=== PATIENT | male | born 1930 | race Caucasian/White ===

== ENCOUNTER 2020-11-01 18:45 | Inpatient (IN) | payer MEDICARE, MEDICAID, SELFPAY ==
[~2020-11-01] VITALS: Ht 175.3 cm; Wt 53.8 kg
[2020-11-01 18:45] VITALS: BP_SYST 128
[~2020-11-01 18:45] MED LIST: DEXT15LI PO; FLUT1AER7 IH; FLUT1DIS3 IH; LEVO75TA7 PO; OMEP20CA15 PO; PRED5TAB PO; TRAM50TA2 PO; [UNRECOGNIZED DRUG - CODE] PO
--- NOTE | 2020-11-01 18:48 | NUR ---
PT BIBA FROM [facility] AFTER ROLLING OUT OF BED AND LANDING ON RIGHT HIP. PT PRESENTS WITH RIGHT HIP PAIN. PT IS AAOX4, V/S STABLE UPON ARRIVAL. PER EMS UPON ARRIVAL TO THE SCENE THERE WERE 4 EMPTY AIRPLANE SIZE BOTTLES OF LIQUOR BY THE BED.
--- NOTE | 2020-11-01 18:48 | NUR ---
Patient to ER bed 4 to gown for evaluation. Side rails up. Report given to ZIGGY Frazier.
--- NOTE | 2020-11-01 18:49 | NUR ---
ER DR. PARTIDA AT THE BEDSIDE EXAMINING PT
--- NOTE | 2020-11-01 19:12 | NUR ---
REPORT GIVEN TO ZIGGY SOFIA FOR CONTINUING CARE
[2020-11-01 19:32] LABS: BASOPHILS # (AUTO) 0.1 K/uL (0.0-0.2); BASOPHILS % (AUTO) 0.8 % (0.0-2.0); EOSINOPHILS # (AUTO) 0.1 K/uL (0.0-0.4); EOSINOPHILS % (AUTO) 0.7 % (0.0-4.0); HEMATOCRIT 38.9 % (36-54); HEMOGLOBIN 13.3 g/dL (14.0-18.0); LYMPHOCYTES # (AUTO) 2.6 K/uL (1.0-5.5); LYMPHOCYTES % (AUTO) 24.2 % (20.5-51.5); MEAN CORPUSCULAR HEMOGLOBIN 31 pg (27-31); MEAN CORPUSCULAR HGB CONC 34 % (32-36); MEAN CORPUSCULAR VOLUME 91 fL (79.0-98.0); MONOCYTES # (AUTO) 0.8 K/uL (0.0-1.0); NEUTROPHILS # (AUTO) 7.3 K/uL (1.8-7.7); NEUTROPHILS % (AUTO) 67.3 % (40.0-70.0); PLATELET COUNT (AUTO) 170 K/uL (130-430); RED BLOOD CELL COUNT(AUTO) 4.27 MIL/uL (4.2-6.2); RED CELL DISTRIBUTION WIDTH 14.2 % (9.0-15.0); WHITE BLOOD COUNT (AUTO) 10.9 K/uL (4.8-10.8)
[2020-11-01 19:51] LABS: ANION GAP 13 (5-15); CALCIUM 8.6 mg/dL (8.4-11.0); CHLORIDE 104 mmol/L (98-107); CREATININE 1.12 mg/dL (0.55-1.30); GLUCOSE 81 mg/dL (70-99); POTASSIUM 4.1 mmol/L (3.5-5.1); SODIUM SERUM 137 mmol/L (136-145); UREA NITROGEN, BLOOD 17 mg/dL (8-21)
[2020-11-01 19:57] LABS: ALANINE AMINOTRANSFERASE 62 U/L (12-78); ALBUMIN 2.9 g/dL (3.4-4.8); ALCOHOL, BLOOD 165 mg/dL (<10); ASPARTATE AMINOTRANSFERASE 61 U/L (10-37); TOTAL BILIRUBIN 0.5 mg/dL (0.0-1.0)
--- NOTE | 2020-11-01 20:14 | NUR ---
VSS no s/s of acute distress Resting on gurney rails up
--- NOTE | 2020-11-01 20:39 | NUR ---
COVID-Rapid and MRSA swab performed at bedside. Samples sent over to lab.
[2020-11-01] MEDS ORDERED: MED4 PO (20:50)
[2020-11-01] MEDS ORDERED: GUAI-689 PO (20:53)
[2020-11-01] MEDS ORDERED: IBUP-1968 PO (20:55)
[2020-11-01] MEDS ORDERED: ALBU8.5H8 INH (20:55)
[2020-11-01] MEDS ORDERED: IPRA3AMP9 INH (20:56)
--- NOTE | 2020-11-01 21:32 | NUR ---
Patient will be admitted to care of Dr. Fagan. Admitted to MS unit. Will go to room 120A. Belongings list completed. Complete and up to date summary report printed. SBAR report to be given at bedside with opportunity for questions.
--- NOTE | 2020-11-01 21:49 | NUR ---
Patient will be admitted to care of Dr. Levi. Admitted to Med Surg unit. Will go to room 120. Belongings list completed. Complete and up to date summary report printed. SBAR report to be given at bedside with opportunity for questions.
--- NOTE | 2020-11-01 21:49 | NUR ---
ADMIT NOTE Received pt from ER to the floor with a diagnosis of Right Hip Fracture. Admission process initiated. patient oriented to pain management, safety and call light-teach back done.
[2020-11-01] MEDS ORDERED: ALBUTEROL SULFATE 0.083% 2.5 MG/3 ML VIAL.NEB INH PRN (22:00)
[2020-11-01] MEDS ORDERED: ACETAMINOPHEN 325 MG TABLET PO PRN (22:00)
[2020-11-01] MEDS ORDERED: HYDROcodone/ACETAMIN 5-325 MG TAB (NORCO/ VICODIN) PO PRN (22:00)
[2020-11-01] MEDS ORDERED: NALOXONE HCL 0.4 MG/ML AMP (NARCAN) IVP PRN (22:00)
[2020-11-01 22:02] VITALS: BP_SYST 129
[2020-11-01] MEDS: MORPHINE 4 MG INJ. 4 MG/ML VIAL IVP PRN (22:11)
--- NOTE | 2020-11-01 22:11 | NUR ---
MORPHINE 2MG GIVEN IV FOR C/O 10/10 RIGHT HIP PAIN. CALL LIGHT IS WITH PT AND BED ALARM IS ON. PT WAS INSTRUCTED NOT TO GET OUT OF BED WITHOUT CALLING FOR ASSISTANCE AND PT VERBALIZED UNDERSTANDING.
[2020-11-01 22:44] VITALS: BP_SYST 129
[2020-11-02] VITALS: BP_SYST 146
--- NOTE | 2020-11-02 | NUR ---
Change in condition At 2315, patient vomited about 50 ml of dark brown colored emesis. Patient noted to be altered and agitated at this time. RN about to administer Ativan, but noted patient's oxygen low. Ativan was not administered. Oxygen saturation noted 86% on 4 L NC. RT and Charge nurse at bedside. Patient placed on simple mask but O2 sat remains in the 80s. Dr. Stoner called and informed of patient condition at 2345. Orders received to insert banegas and transfer to ICU. stated she will enter additional orders when patient is transferred to ICU. Banegas catheter inserted at received 600 ml of errol colored urine. UA sent to lab. Addendum: 11/03/20 at 0143 by Deann Gorman RN DISREGARD NOTE, ENTERED ON WRONG DATE.
[2020-11-02 01:00] VITALS: BP_SYST 128
[2020-11-02] MEDS: MORPHINE 4 MG INJ. 4 MG/ML VIAL IVP PRN ×4 (02:14→20:46)
--- NOTE | 2020-11-02 02:14 | NUR ---
PT C/O 10/10 RIGHT HIP PAIN. MORPHINE 2MG GIVEN IV. CALL LIGHT IS WITH PT AND BED ALARM IS ON. PT WAS INSTRUCTED NOT TO GET OUT OF BED WITHOUT CALLING FOR ASSISTANCE AND PT VERBALIZED UNDERSTANDING.
--- NOTE | 2020-11-02 05:07 | NUR ---
PT C/O 11/06 RIGHT HIP PAIN. NORCO 5/325MG 1 TABLET WAS GIVEN PO. CALL LIGHT IS WITH PT AND BED ALARM IS ON. PT WAS INSTRUCTED NOT TO GET OUT OF BED WITHOUT CALLING FOR ASSISTANCE AND PT VERBALIZED UNDERSTANDING.
--- NOTE | 2020-11-02 05:30 | NUR ---
PT IS YET TO PASS URINE SINCE ADMISSION. PT REFUSED BLADDER SCAN. PT ALSO STATED HE DOES NOT WANT A GARCIA CATHETER.
[2020-11-02 06:48] LABS: BASOPHILS # (AUTO) 0.1 K/uL (0.0-0.2); BASOPHILS % (AUTO) 0.8 % (0.0-2.0); EOSINOPHILS # (AUTO) 0.2 K/uL (0.0-0.4); EOSINOPHILS % (AUTO) 1.3 % (0.0-4.0); HEMATOCRIT 41.2 % (36-54); HEMOGLOBIN 13.6 g/dL (14.0-18.0); LYMPHOCYTES # (AUTO) 2.7 K/uL (1.0-5.5); LYMPHOCYTES % (AUTO) 19.9 % (20.5-51.5); MEAN CORPUSCULAR HEMOGLOBIN 30 pg (27-31); MEAN CORPUSCULAR HGB CONC 33 % (32-36); MEAN CORPUSCULAR VOLUME 92 fL (79.0-98.0); MONOCYTES # (AUTO) 1.4 K/uL (0.0-1.0); MONOCYTES % (AUTO) 10.2 % (1.7-9.3); NEUTROPHILS % (AUTO) 67.8 % (40.0-70.0); PLATELET COUNT (AUTO) 193 K/uL (130-430); RED BLOOD CELL COUNT(AUTO) 4.47 MIL/uL (4.2-6.2); RED CELL DISTRIBUTION WIDTH 14.1 % (9.0-15.0); WHITE BLOOD COUNT (AUTO) 13.3 K/uL (4.8-10.8)
[2020-11-02 06:52] LABS: ALANINE AMINOTRANSFERASE 63 U/L (12-78); ANION GAP 13 (5-15); ASPARTATE AMINOTRANSFERASE 70 U/L (10-37); CALCIUM 8.7 mg/dL (8.4-11.0); CHLORIDE 104 mmol/L (98-107); CREATININE 1.07 mg/dL (0.55-1.30); GLUCOSE 54 mg/dL (70-99); POTASSIUM 4.1 mmol/L (3.5-5.1); SODIUM SERUM 138 mmol/L (136-145); UREA NITROGEN, BLOOD 18 mg/dL (8-21)
[2020-11-02 07:30] LABS: PROTHROMBIN TIME 10.2 SECS (9.5-12.5)
[2020-11-02 08:20] LABS: TOTAL BILIRUBIN 0.9 mg/dL (0.0-1.0)
[2020-11-02 08:24] VITALS: BP_SYST 122
[2020-11-02] MEDS ORDERED: BANANA BAG 1 EA, FOLIC ACID 1 MG, THIAMINE HCL 100 MG, MAGNESIUM SULFATE 1 GM, MVI 10 M... IV SCH ×5 (08:30)
[2020-11-02] MEDS ORDERED: IPRATROPIUM BROM 0.5 MG/2.5 ML VIAL.NEB (ATROVENT) INH ONE (08:30)
[2020-11-02] MEDS ORDERED: ALBUTEROL SULFATE 0.083% 2.5 MG/3 ML VIAL.NEB INH ONE (08:30)
[2020-11-02] MEDS ORDERED: PANTOPRAZOLE SODIUM 40 MG TAB PO ONE (08:30)
[2020-11-02] MEDS ORDERED: LEVOTHYROXINE SODIUM 0.075 MG TABLET PO ONE (08:30)
--- NOTE | 2020-11-02 08:35 | NUR ---
CONSULTATION PAGED/CALLED Reason for Consultation: [] R HIP FRACTURE Person Who was Notified: [] DR RENETTA PARMAR Consulting Physician: [] DR RENETTA PARMAR History Card Clerk Specialty: [] ORTHO Ordering Physician: [] DR ARCHULETA Addendum: 11/02/20 at 0837 by Natasha Zendejas MT/ AMEND: CONSULT WAS CALLED AT 0700 TODAY
[2020-11-02] MEDS ORDERED: BUDESONIDE 0.5 MG/2 ML AMPUL.NEB INH ONE (08:45)
[2020-11-02] MEDS ORDERED: FLUTICASONE 250 mCg/SALMETEROL 50 mCg DISKUS W.DEV IH SCH (09:00)
--- NOTE | 2020-11-02 10:29 | NUR ---
PAGED PAGED DR SCHMIDT FOR CRITICAL ABG. ASSESSED PATIENT'S O2 AT BED SIDE, PUT ON 2 L OXGYEN, WAITING FOR DOCTOR TO CALL BACK
--- NOTE | 2020-11-02 10:36 | NUR ---
CALLED DR SCHMIDT CALLED ORDERED OXYGEN 2 L
[2020-11-02] MEDS: THIAMINE HCL 100 MG, MAGNESIUM SULFATE 1 GM in NS 100 ML IV SCH (11:11)
[2020-11-02] MEDS: NEPHROVITE, (FOLIC ACID/VITAMIN B COMP W-C 1 TAB) PO SCH (11:12)
[2020-11-02] MEDS: FOLIC ACID 1 MG, MVI 10 ML in NACL 0.9% 1,000 ML IV SCH (11:12)
[2020-11-02] MEDS: ALBUTEROL SULFATE 0.083% 2.5 MG/3 ML VIAL.NEB INH SCH ×4 (11:50→23:00)
[2020-11-02] MEDS: IPRATROPIUM BROM 0.5 MG/2.5 ML VIAL.NEB (ATROVENT) INH SCH ×4 (11:50→23:00)
[2020-11-02 12:13] VITALS: BP_SYST 92
--- NOTE | 2020-11-02 12:59 | NUR ---
CONSULTATION PAGED/CALLED Reason for Consultation: [] PREOP CLEARANCE Person Who was Notified: [] PAGED DR ABDALLA DIRECTLY Consulting Physician: [] DR ABDALLA Forestry Conservation Worker Specialty: [] PULMO Ordering Physician: [] DR SCHMIDT
--- NOTE | 2020-11-02 13:00 | NUR ---
patient left the room for CT
[2020-11-02] MEDS: LORazepam 2 MG/ML VIAL IVP PRN ×2 (13:21→23:29)
[2020-11-02 16:28] VITALS: BP_SYST 105
--- NOTE | 2020-11-02 19:00 | NUR ---
closing note patient is resting, RT at bedside. iv infiltrated. endorsed to night nurse patient need new iv access for pain mediation. all needs been met, call light in reach, safety maintained.
[2020-11-02] MEDS: BUDESONIDE 0.5 MG/2 ML AMPUL.NEB INH SCH (19:25)
--- NOTE | 2020-11-02 19:30 | NUR ---
Opening notes Received report. Patient is resting in bed, A&Ox4. No signs of distress noted. Breathing even and unlabored on 3 L NC. Patient complains of pain to right hip, IV is infiltrated at this time. Offered patient PO pain medication at this time, patient declines and can wait for new IV to be inserted. No other needs a this time. SCDs in place. Call light with the patient. Safety precautions in place.
[2020-11-02 20:30] VITALS: BP_SYST 106
--- NOTE | 2020-11-02 20:45 | NUR ---
IV insertion/Pain Meds New IV inserted into right hand 22 gauge. Flushes well with good blood return. PRN pain medication given. Educated the action and side effects of Morphine. Patient verbalized understanding and tolerated well. No other needs at this time. Call light with the patient. Safety precautions in place.
[2020-11-03] VITALS (24 sets, daily range): BP systolic 69–146
--- NOTE | 2020-11-03 | NUR ---
Change in condition At 2315, patient vomited about 50 ml of dark brown colored emesis. Patient noted to be altered and agitated at this time. RN about to administer Ativan, but noted patient's oxygen low. Ativan was not administered. Oxygen saturation noted 86% on 4 L NC. RT and Charge nurse at bedside. Patient placed on simple mask but O2 sat remains in the 80s. Dr. Stoner called and informed of patient condition at 2345. Orders received to insert banegas and transfer to ICU. stated she will enter additional orders when patient is transferred to ICU. Banegas catheter inserted at received 600 ml of errol colored urine. UA sent to lab.
[2020-11-03] MEDS: ALBUTEROL SULFATE 0.083% 2.5 MG/3 ML VIAL.NEB INH PRN (00:05)
[2020-11-03] MEDS: IPRATROPIUM BROM 0.5 MG/2.5 ML VIAL.NEB (ATROVENT) INH PRN (00:06)
[2020-11-03] MEDS ORDERED: methylPREDNISolone SOD SUCC/PF 62.5 MG/ML VIAL IVP ONE ×2 (00:15→08:45)
--- NOTE | 2020-11-03 00:15 | NUR ---
DR STEFANY Holly notified regarding Pt's admission to ICU, and elevation of heart rate 155, temperature 100.8 temporal scan, decrease O2 sat 81. Orders received. 1. Give O2 to increase sat to 90%, then do ABG 2.CBC, BMP now 3.NS @ 75ml/hr 4. Zosyn 3.375 gm Q8HR 5.Haldol 5mg IM X1 agitation 6.Blood cultures X2
--- NOTE | 2020-11-03 00:15 | NUR ---
TRANSFER TO LINUX SYSTEM ADMIN, Charge Nurse, RT at bedside to assist. Patient and patient belongings transferred to ICU.
--- NOTE | 2020-11-03 00:15 | NUR ---
MS TRANSFER Pt received via bed from MS. Pt confused, and agitated, bilateral wrist restraints in use. Oxygen 6L N/C in use, pt receiving HHN Tx. Saline lock 22ga right hand, started by MS staff. SCD in use. Belongings at bedside.
[2020-11-03 00:38] LABS: BILIRUBIN,URINE NEGATIVE (NEGATIVE); BLOOD, URINE NEGATIVE (NEGATIVE); CLARITY/URINE CLEAR (CLEAR); COLOR,URINE YELLOW (YELLOW); GLUCOSE,URINE NEGATIVE (NEGATIVE); KETONES,URINE TRACE (NEGATIVE); LEUKOCYTE ESTERASE ,URINE NEGATIVE (NEGATIVE); NITRITE, URINE NEGATIVE (NEGATIVE); PROTEIN URINE NEGATIVE (NEGATIVE); UROBILINOGEN,URINE 0.2 (0.2-1.0)
--- NOTE | 2020-11-03 00:40 | NUR ---
COMMUNICATION W/ DR. GEREMIAS ARCHULETA PAGED AT THIS TIME TO COMMUNICATE PATIENT IS UNCOOPERATIVE, AGITATED, AND WILL NOT ALLOW STAFF TO PLACE OXYGEN DEVICES FOR HIM. DESPITE EDUCATIONAL EFFORTS, PATIENT KEEPS PULLING OFF MEDICAL LINES. DR. ARCHULETA GAVE ORDERS FOR BILATERAL WRIST RESTRAINTS, CHARGE NURSE AND HEALTHCARE ECONOMICS MANAGER MADE AWARE. MD ALSO GAVE OTHER ORDERS, ALL ORDERS READ BACK, VERIFIED, AND ENTERED.
--- NOTE | 2020-11-03 00:41 | NUR ---
HIGH ALERT NOTE: Called Dr. ARCHULETA back at [phone] identified within the medical roster to verify physician authenticity.
[2020-11-03] MEDS ORDERED: ACETAMINOPHEN 650 MG SUPP.RECT RC ONE (00:54)
[2020-11-03] MEDS ORDERED: PIPERACILLIN/TAZO 3.375/DEX-IS 50 ML IV ONE (01:00)
[2020-11-03] MEDS ORDERED: HALOPERIDOL LACTATE 5 MG/ML VIAL IM ONE ×2 (01:00→03:30)
[2020-11-03] MEDS: ACETAMINOPHEN 650 MG SUPP.RECT RC PRN (01:00)
--- NOTE | 2020-11-03 01:05 | NUR ---
ICU PM SHIFT ASSESSMENT Patient is lethargic and confused. O2 via Venturi mask. ST on monitor. IVF infusing. Carl catheter in place and draining to gravity. Bilateral wrist restraints in place, no skin issues noted. Safety precautions in place, call light within reach. Will continue to monitor.
[2020-11-03] MEDS: MORPHINE 4 MG INJ. 4 MG/ML VIAL IVP PRN ×3 (01:10→19:53)
[2020-11-03] MEDS ORDERED: PIPERACILLIN/TAZOBACTAM 3.375 GM/VIAL (ZOSYN) IV ONE (01:20)
[2020-11-03] MEDS: NACL 0.9% 1,000 ML IV SCH ×2 (01:23→14:41)
[2020-11-03 01:39] LABS: BASOPHILS # (AUTO) 0.1 K/uL (0.0-0.2); BASOPHILS % (AUTO) 0.6 % (0.0-2.0); EOSINOPHILS % (AUTO) 0.4 % (0.0-4.0); HEMATOCRIT 43.5 % (36-54); HEMOGLOBIN 14.3 g/dL (14.0-18.0); LYMPHOCYTES # (AUTO) 1.1 K/uL (1.0-5.5); LYMPHOCYTES % (AUTO) 9.9 % (20.5-51.5); MEAN CORPUSCULAR HEMOGLOBIN 31 pg (27-31); MEAN CORPUSCULAR HGB CONC 33 % (32-36); MONOCYTES # (AUTO) 0.2 K/uL (0.0-1.0); MONOCYTES % (AUTO) 1.8 % (1.7-9.3); NEUTROPHILS # (AUTO) 9.5 K/uL (1.8-7.7); NEUTROPHILS % (AUTO) 87.3 % (40.0-70.0); PLATELET COUNT (AUTO) 215 K/uL (130-430); RED CELL DISTRIBUTION WIDTH 14.6 % (9.0-15.0); WHITE BLOOD COUNT (AUTO) 10.9 K/uL (4.8-10.8)
[2020-11-03 01:41] LABS: MEAN CORPUSCULAR VOLUME 94 fL (79.0-98.0)
[2020-11-03 01:43] LABS: ANION GAP 16 (5-15); CALCIUM 8.4 mg/dL (8.4-11.0); CHLORIDE 107 mmol/L (98-107); GLUCOSE 51 mg/dL (70-99); SODIUM SERUM 142 mmol/L (136-145); UREA NITROGEN, BLOOD 35 mg/dL (8-21)
[2020-11-03 01:44] LABS: CREATININE 1.92 mg/dL (0.55-1.30)
--- NOTE | 2020-11-03 01:53 | NUR ---
rt note at 2310 was called to the bedside regarding patient desaturation 86% on 4L/NC. RN and medical charge entry specialist at the bedside. patient placed on 6L simple mask saturation remained in the low 80's. at 0007 PRN breathing treatment given for shortness of breath, patient tolerated treatment well slight improvement. saturation remained in the low 80's. Dr. Stoner was called and order transfer to the ICU. patient transferred to the ICU on 6L simple mask saturation remains in the low 80's will continue to monitor and will wait for orders from strategic manager.
--- NOTE | 2020-11-03 01:55 | NUR ---
BLOOD SUGAR Blood sugar check done, glucose reading 55. D50 IVP given.
[2020-11-03] MEDS ORDERED: DEXTROSE 50% JECT 50 ML DISP.SYRIN ONE (02:02)
--- NOTE | 2020-11-03 02:20 | NUR ---
BLOOD SUGAR RECHECK After patient has received D50 IVP, blood sugar is now 159. Will continue to monitor.
[2020-11-03] MEDS ORDERED: NOREPINEPHRINE 4 MG/4 ML VIAL IV ONE ×3 (02:52→05:31)
--- NOTE | 2020-11-03 02:59 | NUR ---
IV PLACEMENT: # 20 gauge angiocath placed to right forearm after second attempt. Use of asceptic technique. Opsite placed over site. Blood return noted. Flushed with 10 cc of normal saline. No evidence of infiltration noted. Patient tolerated well.
[2020-11-03] MEDS: IPRATROPIUM BROM 0.5 MG/2.5 ML VIAL.NEB (ATROVENT) INH SCH ×2 (03:00→08:43)
[2020-11-03] MEDS: ALBUTEROL SULFATE 0.083% 2.5 MG/3 ML VIAL.NEB INH SCH ×2 (03:00→08:44)
--- NOTE | 2020-11-03 03:00 | NUR ---
SPOKE TO DR. GEREMIAS MD AWARE OF PATIENTS LOW BLOOD SUGAR AND LOW BP. ORDERS TO START ACCUCHECKS Q4HR WITH NO INSULIN COVERAGE AND START LEVOPHED. WILL CONTINUE TO MONITOR.
--- NOTE | 2020-11-03 03:04 | NUR ---
IV FLUIDS Dr Holly did not want to increase IVF due to pt's history of COPD.
[2020-11-03] MEDS: NOREPINEPHRINE BITARTRATE 4 MG in D5W 246 ML IV PRN ×3 (03:41→08:27)
[2020-11-03] MEDS ORDERED: D5W 1,000 ML IV PRN (03:45)
[2020-11-03] MEDS ORDERED: DEXTROSE 50% JECT 50 ML DISP.SYRIN IVP PRN (03:45)
[2020-11-03] MEDS ORDERED: GLUCOSE (DEXTROSE) ORAL GEL -Adults PO PRN (03:45)
[2020-11-03] MEDS ORDERED: PIPERACILLIN/TAZO 3.375/DEX-IS 50 ML IV SCH (06:00)
[2020-11-03] MEDS: LEVOTHYROXINE SODIUM 0.075 MG TABLET PO SCH (07:00)
--- NOTE | 2020-11-03 07:15 | NUR ---
Nutrition Update Shay Scale 14 noted. Pt admitted for Right hip fracture Diet: NPO BMI: 18.8 kg/m2 RD to follow per nutrition care standards.
--- NOTE | 2020-11-03 07:15 | NUR ---
OPENING NOTE: REPORT RC'VD AT BEDSIDE FROM OUTGOING RN USING SBAR FORMAT. ALL SAFETY PRECAUTIONS IN PLACE. BED LOW AND LOCKED, RT AT BEDSIDE GIVING PATIENT RESP TREATMENT.
--- NOTE | 2020-11-03 07:15 | NUR ---
ENDORSEMENT Pt care endorsed to dayshift RN using nursing SBAR.
[2020-11-03] MEDS: LORazepam 2 MG/ML VIAL IVP PRN ×4 (07:59→21:44)
--- NOTE | 2020-11-03 08:01 | NUR ---
ATIVAN PRN: ATIVAN GIVEN IVP PER ORDER FOR AGITATION.
--- NOTE | 2020-11-03 08:42 | NUR ---
DR. ABDALLA: MD AT BEDSIDE NEW ORDERS BEING PLACED.
[2020-11-03] MEDS: BUDESONIDE 0.5 MG/2 ML AMPUL.NEB INH SCH ×2 (08:43→19:31)
[2020-11-03] MEDS ORDERED: IPRATROPIUM/ALBUTEROL SULFATE 3 ML AMPUL.NEB (DUONEB) INH ONE (08:45)
--- NOTE | 2020-11-03 08:55 | NUR ---
DR. CHICAS: MD AT BEDSIDE ASSESSING PATIENT.
--- NOTE | 2020-11-03 08:59 | NUR ---
PICC LINE: SIGNED PICC LINE CONSENT, MD PLACED NOTATION FOR MEDICAL NECESSITY.
[2020-11-03] MEDS: NEPHROVITE, (FOLIC ACID/VITAMIN B COMP W-C 1 TAB) PO SCH (09:00)
[2020-11-03] MEDS: THIAMINE HCL 100 MG, MAGNESIUM SULFATE 1 GM in NS 100 ML IV SCH (09:01)
[2020-11-03] MEDS: FOLIC ACID 1 MG, MVI 10 ML in NACL 0.9% 1,000 ML IV SCH (09:01)
[2020-11-03] MEDS: PANTOPRAZOLE SODIUM 40 MG TAB PO SCH (09:02)
--- NOTE | 2020-11-03 09:03 | NUR ---
LAB: TECH AT BEDSIDE PERFORMING LAB DRAW.
--- NOTE | 2020-11-03 09:22 | NUR ---
DR. SCHMIDT: MD AT BEDSIDE ASSESSING PATIENT.
[2020-11-03 09:31] LABS: INR 1.1 (0.80-1.20); PROTHROMBIN TIME 11.1 SECS (9.5-12.5)
[2020-11-03] MEDS: NOREPINEPHRINE BITARTRATE 8 MG in D5W 242 ML IV PRN ×2 (10:08→17:34)
--- NOTE | 2020-11-03 11:00 | NUR ---
DIETARY: DIETARY AT BEDSIDE, SPLITTING MACHINE FEEDER STATED SHE WILL PLACE RECOMMENDATIONS INTO RECORD.
--- NOTE | 2020-11-03 11:34 | NUR ---
NG TUBE: 16 LIBYAN NG TUBE INSERTED INTO RIGHT NARE, PENDING CHEST XRAY CONFIRMATION.
--- NOTE | 2020-11-03 11:55 | NUR ---
PIV INFILTRATED: PATIENTS RIGHT FA PIV INFILTRATED. NEW PIV PLACED TO BELIA 24G. CHARGE AT BEDSIDE ASSISTING WITH PROCEDURE. Addendum: 11/03/20 at 1156 by Jodee Silverman RN NEW PIV PLACED TO WAN 24G.
--- NOTE | 2020-11-03 12:00 | NUR ---
Dietitian Recommendations *Recommend: continue NPO as ordered. *Recommend: initiate EN support via NGT *Recommend: Vital AF 1.2 at 45ml/hr (goal rate), Ney BID, FWF 150ml Q6H via NGT. (Initial EN infusion rate of 20ml/hr, slowly increase to goal rate Q8H). Provides: 1456 kcal, 86gm protein and 1476ml free water daily. Meets: 100% of lower end of estimated calorie needs and 78% of upper end of estimated protein needs. Please see Nutritional Assessment for details. HASMUKH, RD
--- NOTE | 2020-11-03 12:07 | NUR ---
ATIVAN PRN: ATIVAN GIVEN IVP PER ORDER FOR AGITATION.
--- NOTE | 2020-11-03 12:08 | NUR ---
RT AT BEDSIDE: RT ATTEMPTING DEEP SUCTION, PATIENT NOTED WITH AUDIBLE COARSE LUNG SOUNDS, COPIOUS UPPER AIRWAY SECRETIONS PRESENT. HOB MAINTAINS ELEVATED FOR PREVENTION OF ASPIRATION.
--- NOTE | 2020-11-03 13:01 | NUR ---
Off unit for Nuclear Med via lisa ACLS protocol accompanied by ZIGGY Castellon and Bunny moses x2
--- NOTE | 2020-11-03 13:05 | NUR ---
20g IV placed to RUE with +blood return. Flushed with 10cc NS, tegaderm placed. No s/sx of infiltration. Pt tolerated well.
--- NOTE | 2020-11-03 13:09 | NUR ---
SCAN: PATIENT TAKEN TO SCAN ON MONITOR WITH RN AT BEDSIDE.
[2020-11-03] MEDS: PIPERACILLIN/TAZO 3.375/DEX-IS 50 ML IV SCH ×2 (14:41→21:44)
[2020-11-03] MEDS: HEPARIN SODIUM,PORCINE 5,000 UNITS/ML VIAL SUBCUT SCH ×2 (14:49→21:47)
--- NOTE | 2020-11-03 14:53 | NUR ---
PAGED: LAB REPORTED GRAM NEG RODS IN BLOOD CX, MD SCHMIDT PAGED. PENDING RETURN CALL.
[2020-11-03] MEDS ORDERED: LEVOFLOXACIN IN DEXTROSE 5 % 100 ML IV ONE (15:15)
--- NOTE | 2020-11-03 15:15 | NUR ---
DR. SCHMIDT: SPOKE WITH MD KIM AWARE OF LAB RESULTS, MD WILL PLACE NEW ORDERS.
[2020-11-03] MEDS: IPRATROPIUM/ALBUTEROL SULFATE 3 ML AMPUL.NEB (DUONEB) INH SCH ×3 (16:09→23:36)
--- NOTE | 2020-11-03 16:34 | NUR ---
ATIVAN PRN: ATIVAN GIVEN IVP PER ORDER FOR AGITATION.
--- NOTE | 2020-11-03 16:42 | NUR ---
PICC NURSE: AT BEDSIDE PLACING PICC LINE PER ORDER.
--- NOTE | 2020-11-03 17:30 | NUR ---
PICC INSERTED: PLACEMENT CONFIRMED BY XRAY
--- NOTE | 2020-11-03 17:58 | NUR ---
1340 NTS PT. SMALL THICK BLOOD TINGED SECRETIONS.SAT 97% ON NRB. Addendum: 11/03/20 at 1759 by Aparna Henley RT Amended: Links added.
--- NOTE | 2020-11-03 18:00 | NUR ---
REDNESS NOTED: REDNESS NOTED TO BILATERAL WRISTS, PATIENT TUGGING AND HITTING ARMS ON SIDE RAILS. PHOTOS TAKEN, CHARGE AWARE AND MD PAGED.
[2020-11-03] MEDS: methylPREDNISolone SOD SUCC/PF 62.5 MG/ML VIAL IVP SCH ×2 (18:09→23:24)
--- NOTE | 2020-11-03 19:20 | NUR ---
CLOSING NOTE: REPORT GIVEN TO NOC NURSE USING SBAR FORMAT, BED LOW LOCKED FOR SAFETY. ALL SAFETY PRECAUTIONS IN PLACE.
--- NOTE | 2020-11-03 19:25 | NUR ---
ICU PM SHIFT ASSESSMENT Patient is lethargic and confused. O2 via NRB, RR even and unlabored. ST on monitor. IVF infusing to BELIA PICC, no signs of infiltration noted. Carl catheter in place and draining to gravity. Bilateral wrist restraints in place. Safety precautions in place, call light within reach. Will continue to monitor.
[2020-11-04] VITALS (25 sets, daily range): BP systolic 88–150
[2020-11-04] MEDS: NACL 0.9% 1,000 ML IV SCH ×2 (02:57→09:59)
[2020-11-04] MEDS: LORazepam 2 MG/ML VIAL IVP PRN ×4 (02:58→23:04)
[2020-11-04] MEDS: MORPHINE 4 MG INJ. 4 MG/ML VIAL IVP PRN ×3 (03:47→20:35)
[2020-11-04] MEDS: IPRATROPIUM/ALBUTEROL SULFATE 3 ML AMPUL.NEB (DUONEB) INH SCH ×6 (03:55→22:52)
[2020-11-04] MEDS: PIPERACILLIN/TAZO 3.375/DEX-IS 50 ML IV SCH ×3 (06:13→22:00)
[2020-11-04] MEDS: methylPREDNISolone SOD SUCC/PF 62.5 MG/ML VIAL IVP SCH ×4 (06:14→23:03)
[2020-11-04] MEDS: LEVOTHYROXINE SODIUM 0.075 MG TABLET PO SCH (06:14)
[2020-11-04] MEDS: HEPARIN SODIUM,PORCINE 5,000 UNITS/ML VIAL SUBCUT SCH (06:16)
[2020-11-04] MEDS: IPRATROPIUM BROM 0.5 MG/2.5 ML VIAL.NEB (ATROVENT) INH SCH ×3 (07:00→15:00)
[2020-11-04] MEDS: ALBUTEROL SULFATE 0.083% 2.5 MG/3 ML VIAL.NEB INH SCH ×3 (07:00→15:00)
--- NOTE | 2020-11-04 07:30 | NUR ---
OPENING NOTE Patient resting in the bed. No acute distress. On O2 15L/min via non-rebreather mask. HOB elevated. Skin warm and dry to touch. PICC line intact to BELIA, no redness, no swelling, no drainage. On NS at 75ml/hr, infusing well. ON Levophed at 0.14 mcg/kg/min, infusing well. Bilateral soft restraint in placed, pulse present, able to move fingers and hands without problems. F/C intact, drain gravity. Safety measure maintained. Call light within reached. Bed locked in low position, side rails up. Will continue to monitor.
[2020-11-04] MEDS: BUDESONIDE 0.5 MG/2 ML AMPUL.NEB INH SCH ×2 (07:41→20:00)
--- NOTE | 2020-11-04 07:55 | NUR ---
SEEN AND EXAMINED BY RENETTA CRESPO.
--- NOTE | 2020-11-04 08:37 | NUR ---
SEEN AND EXAMINED BY ERINN MUÑOZ.
[2020-11-04] MEDS: NEPHROVITE, (FOLIC ACID/VITAMIN B COMP W-C 1 TAB) PO SCH (09:00)
[2020-11-04] MEDS: PANTOPRAZOLE SODIUM 40 MG TAB PO SCH (09:00)
--- NOTE | 2020-11-04 09:03 | NUR ---
SEEN AND EXAMINED BY DELICIA HERNANDEZ ORDERED STAT CBC, PT/INR, PTT. PER DR. SCHMIDT TO HOLD PO MED TODAY. STOP HEPARIN. PATIENT CONTINUE NG TUBE LOW INTERMITTED SUCTION WITH DARK RED DRAINAGE.
[2020-11-04 09:29] LABS: HEMATOCRIT 41.2 % (36-54); HEMOGLOBIN 13.4 g/dL (14.0-18.0); MEAN CORPUSCULAR HEMOGLOBIN 30 pg (27-31); MEAN CORPUSCULAR HGB CONC 33 % (32-36); MEAN CORPUSCULAR VOLUME 93 fL (79.0-98.0); PLATELET COUNT (AUTO) 145 K/uL (130-430); RED BLOOD CELL COUNT(AUTO) 4.42 MIL/uL (4.2-6.2); RED CELL DISTRIBUTION WIDTH 14.7 % (9.0-15.0); WHITE BLOOD COUNT (AUTO) 22.9 K/uL (4.8-10.8)
[2020-11-04 09:44] LABS: INR 1.2 (0.80-1.20); PROTHROMBIN TIME 12.3 SECS (9.5-12.5)
[2020-11-04] MEDS: THIAMINE HCL 100 MG, MAGNESIUM SULFATE 1 GM in NS 100 ML IV SCH (09:49)
[2020-11-04] MEDS: FOLIC ACID 1 MG, MVI 10 ML in NACL 0.9% 1,000 ML IV SCH (09:53)
[2020-11-04] MEDS ORDERED: PANTOPRAZOLE SODIUM 40 MG/VIAL (PROTONIX) IVP ONE (10:00)
--- NOTE | 2020-11-04 10:40 | NUR ---
HGB, HCT, PT, INR, PTT RESULT Called and received call back from Bob Dasilva. Reported to Dr. Levi, Hgb 13.4, Hct 41.2, PT 12.3, INR 1.2, PTT 34.3 with no new order.
--- NOTE | 2020-11-04 11:35 | NUR ---
WBC 22.9 Called and received call back from Nixon Castillo. Reported to Dr. Darby, patient WBC 22.9 today and 10.9 yesterday. Patient on Zosyn 3.375gm Q8hr, Solu-Medrol 60mg Q6hr. Blood culture done yesterday and result pending. Dr. Gardiner stated " WBC elevated because on Solu-Medrol and no need ID consult at this time". No new order at this time.
[2020-11-04 12:12] LABS: BAND % (MANUAL) 48 % (0-6); BASOPHILS % (MANUAL) 0 % (0-2); EOSINOPHILS % (MANUAL) 0 % (0-7); LYMPHOCYTES % (MANUAL) 3 % (20-46); METAMYELOCYTES % 1 % (0-0); MONOCYTES % (MANUAL) 7 % (0-11)
--- NOTE | 2020-11-04 16:14 | NUR ---
WOUND EVALUATION: Late note for 11/04/2020 at 1614 secondary to patient care. Wound Consult received from Dr. Levi. Thank you, Dr. Levi, for the consult. Patient received in a [place] Bed with an IsoFlex CONY mattress, awake, nonverbal, nonresponsive to verbal commands, moans and groans only. Patient is unable to turn in bed independently. Shay Score is a 12. Past Medical History: COPD, Hypothyroidism. Patient was brought in by ambulance after sustaining a mechanical fall from his bed at his residence, patient was diagnosed with a right hip fracture during the admission process. Recent Labs: WBC 22.9, RBC 4.42, hemoglobin 13.4, hematocrit 41.2, BUN 35, creatinine 1.92, glucose 51, POC glucose 165, albumin 3.0. Microbiology: MRSA screen results negative. Blood culture results x2 in progress. Intrinsic factors that delay wound healing: COPD, Hypoalbuminemia. Extrinsic factors that delay wound healing: Immobility. Wound Assessment: 1. Sacral/buttocks areas: Blanchable redness, present on admission. No odor, no drainage. 2. Intergluteal Sulcus: Scar tissue, present on admission. Recommend: Cleanse involved areas with mild soap and water. Pat dry. Apply moisture barrier cream to involved areas. Cover sites with Sacral foam dressing. Perform site care daily, and as needed for dressing soiling or dislodgment. 3. Right Buttock near the Ischial Tuberosity: Small area of ecchymosis, present on admission. Recommend: Cover site with foam dressing for protection. Change dressing and assess site daily, and as needed for dressing soiling or dislodgment. 4. Right Posterior Lateral Hip and Buttock: Scattered areas of ecchymosis, present on admission. Recommend: No dressings needed. Continue to monitor sites every shift. 5. Right Proximal Vegas: Skin tear, present on admission. Open area has 10% dark discolored skin, 90% pink tissue. No odor, scant yellow drainage. Periwound intact. Surrounding tissue has ecchymosis. Skin tear measures 1.5 cm x 1.3 cm. Recommend: Cleanse skin tear with normal saline. Apply sure prep to perimeter of skin tear. Apply Hydrogel to skin tear bed. Cover with foam dressing. Perform skin tear care daily, and as needed for dressing soiling or dislodgment. 6. Left Vegas: Skin tear, present on admission. Open area has 100% red tissue. No odor, scant yellow drainage. Periwound intact. Surrounding tissue has ecchymosis. Skin tear measures 0.1 cm x 1.6 cm. Recommend: Cleanse skin tear with normal saline. Apply sure prep to perimeter of skin tear. Apply Hydrogel to skin tear bed. Cover with foam dressing. Perform skin tear care daily, and as needed for dressing soiling or dislodgment. 7. Right Lateral Foot: Blanchable redness, present on admission Recommend: Elevate, offload and float bilateral heels and feet with 1 pillow lengthwise under each extremity at all times. Ensure that feet float freely and do not touch bed or other surfaces at any time. 8. Right Posterior Lateral Forearm: Skin tear, present on admission. Open area has 80% dark discolored skin, 20% red tissue. No odor, no drainage. Periwound intact. Surrounding tissue has ecchymosis. Skin tear measures 1.7 cm x 1.5 cm. Recommend: Cleanse skin tear with normal saline. Apply sure prep to perimeter of skin tear. Apply Hydrogel to skin tear bed. Cover with foam dressing. Perform skin tear care daily, and as needed for dressing soiling or dislodgment. 9. Left Dorsal Wrist: Skin tear, present on admission. Open area has 100% red tissue. No odor, no drainage. Periwound intact. Surrounding tissue and extremity have ecchymosis. Skin tear measures 0.5 cm x 1.5 cm. Recommend: Cleanse skin tear with normal saline. Apply sure prep to perimeter of skin tear. Apply Hydrogel to skin tear bed. Cover with foam dressing. Perform skin tear care daily, and as needed for dressing soiling or dislodgment. 10. Right Dorsal Hand: Skin tear, present on admission. Open area has 100% red tissue. No odor, no drainage. Periwound intact. Surrounding tissue has ecchymosis. Skin tear measures 0.5 cm x 0.4 cm. Recommend: Cleanse skin tear with normal saline. Apply sure prep to perimeter of skin tear. Apply Hydrogel to skin tear bed. Cover with foam dressing. Perform skin tear care daily, and as needed for dressing soiling or dislodgment. 11. Right Dorsal Hand, Lateral to Site 10: Skin tear, present on admission. Open area has 90% white tissue, 10% red tissue. No odor, small sanguineous drainage. Periwound intact. Surrounding tissue has ecchymosis. Skin tear measures 2.3 cm x 3.0 cm. Recommend: Cleanse skin tear with normal saline. Apply moisture barrier cream to skin tear. Cover with foam dressing. Perform skin tear care daily, and as needed for dressing soiling or dislodgment. Also recommend: Reposition patient [id number] only every 2 hours with pillow support and off-load pressure areas with pillows for pressure re-distribution. Offload, elevate and float bilateral heels with 1 pillow at all times. Perform skin care and monitor skin integrity Q shift. Use moisture barrier cream on buttocks and other moisture susceptible areas QID and as needed for soiling. Initiate low air-loss therapy.
--- NOTE | 2020-11-04 20:00 | NUR ---
PM ASSESSMENT REPORT RECEIVED FROM MIRELLA TRINH. PT RECEIVED IN BED WITH EYES CLOSED, UNABLE TO FOLLOW COMMANDS. VSS, NO S/S OF ACUTE DISTRESS NOTED. PT ON 100% NRB. BELIA PICC IN PLACE INFUSING IVF AND LEVOPHED DRIP PER ORDERS. L NARE NGT IN PLACE TO MEJIA SUCTION. BILATERAL SOFT WRIST RESTRAINTS IN PLACE, NO S/S OF INJURY NOTED. GARCIA CATH IN PLACE DRAINING URINE TO GRAVITY. PT RESTLESS AND GRIMACING, WILL MEDICATE PER ORDERS. HOB ELEVATED, BED IN LOWEST POSITION, CALL LIGHT IN REACH. WILL CONTINUE TO MONITOR PT.
[2020-11-05] VITALS (28 sets, daily range): BP systolic 96–193
[2020-11-05] MEDS ORDERED: VASOPRESSIN 100 UNITS in D5W 45 ML IV PRN (00:30)
[2020-11-05] MEDS: MORPHINE 4 MG INJ. 4 MG/ML VIAL IVP PRN ×3 (01:19→15:46)
[2020-11-05] MEDS: NACL 0.9% 1,000 ML IV SCH ×2 (01:24→19:21)
[2020-11-05] MEDS: LORazepam 2 MG/ML VIAL IVP PRN (03:33)
[2020-11-05] MEDS: IPRATROPIUM/ALBUTEROL SULFATE 3 ML AMPUL.NEB (DUONEB) INH SCH ×6 (03:42→23:42)
[2020-11-05] MEDS: PIPERACILLIN/TAZO 3.375/DEX-IS 50 ML IV SCH ×3 (05:52→21:53)
[2020-11-05] MEDS: methylPREDNISolone SOD SUCC/PF 62.5 MG/ML VIAL IVP SCH ×2 (05:52→11:31)
[2020-11-05] MEDS: LEVOTHYROXINE SODIUM 0.075 MG TABLET PO SCH (06:00)
[2020-11-05 06:57] LABS: BASOPHILS % (AUTO) 0.1 % (0.0-2.0); HEMATOCRIT 37.8 % (36-54); HEMOGLOBIN 12.4 g/dL (14.0-18.0); LYMPHOCYTES # (AUTO) 0.2 K/uL (1.0-5.5); LYMPHOCYTES % (AUTO) 1.5 % (20.5-51.5); MEAN CORPUSCULAR HEMOGLOBIN 30 pg (27-31); MEAN CORPUSCULAR HGB CONC 33 % (32-36); MEAN CORPUSCULAR VOLUME 93 fL (79.0-98.0); MONOCYTES # (AUTO) 0.7 K/uL (0.0-1.0); MONOCYTES % (AUTO) 4.8 % (1.7-9.3); NEUTROPHILS # (AUTO) 13.3 K/uL (1.8-7.7); NEUTROPHILS % (AUTO) 93.6 % (40.0-70.0); PLATELET COUNT (AUTO) 126 K/uL (130-430); RED BLOOD CELL COUNT(AUTO) 4.06 MIL/uL (4.2-6.2); WHITE BLOOD COUNT (AUTO) 14.2 K/uL (4.8-10.8)
[2020-11-05] MEDS: IPRATROPIUM BROM 0.5 MG/2.5 ML VIAL.NEB (ATROVENT) INH SCH ×3 (07:00→15:00)
[2020-11-05] MEDS: ALBUTEROL SULFATE 0.083% 2.5 MG/3 ML VIAL.NEB INH SCH ×3 (07:00→15:00)
--- NOTE | 2020-11-05 07:07 | NUR ---
ENDORSEMENT BEDSIDE REPORT GIVEN TO KIM TRINH USING SBAR APPROACH.
[2020-11-05] MEDS: BUDESONIDE 0.5 MG/2 ML AMPUL.NEB INH SCH ×2 (07:13→19:47)
[2020-11-05 07:22] LABS: ALANINE AMINOTRANSFERASE 48 U/L (12-78); ALBUMIN 1.6 g/dL (3.4-4.8); ANION GAP 11 (5-15); ASPARTATE AMINOTRANSFERASE 64 U/L (10-37); CALCIUM 8.7 mg/dL (8.4-11.0); CHLORIDE 114 mmol/L (98-107); CREATININE 1.29 mg/dL (0.55-1.30); GLUCOSE 140 mg/dL (70-99); POTASSIUM 4.4 mmol/L (3.5-5.1); SODIUM SERUM 144 mmol/L (136-145); TOTAL BILIRUBIN 0.6 mg/dL (0.0-1.0); UREA NITROGEN, BLOOD 35 mg/dL (8-21)
--- NOTE | 2020-11-05 07:40 | NUR ---
INITIAL NOTES OPEN HIS EYES, AGITATED, DOES NOT FOLLOW COMMANDS. ON BILATERAL WRIST RESTRAINTS, ON NON RE-BREATHER [id number]%, has ngt connected to low intrmittent suction draining dark green. OFF levopheds. keep NPO will continue to monitor.
[2020-11-05] MEDS: FOLIC ACID 1 MG, MVI 10 ML in NACL 0.9% 1,000 ML IV SCH (08:08)
[2020-11-05] MEDS: THIAMINE HCL 100 MG, MAGNESIUM SULFATE 1 GM in NS 100 ML IV SCH (08:08)
[2020-11-05] MEDS: NEPHROVITE, (FOLIC ACID/VITAMIN B COMP W-C 1 TAB) PO SCH (08:09)
[2020-11-05] MEDS ORDERED: LEVOFLOXACIN 250 MG/D5W 250 ML IV SCH (09:00)
[2020-11-05] MEDS ORDERED: PANTOPRAZOLE SODIUM 40 MG/VIAL (PROTONIX) IVP SCH (09:00)
--- NOTE | 2020-11-05 11:00 | NUR ---
Called Dr. Espinal with a consult,spoke with Unique from the exchange
--- NOTE | 2020-11-05 16:20 | NUR ---
RT NOTES 1620 PT GOT INTUBATED BY DR. ABDALLA. AC 24,450VT, PEEP 5, FIO2 100% - 8.0/24CM LL. MAYA BREATH SOUNDS HEARD. CO2 DETECTOR COLOR CHANGED. CXR DONE, ETT RIGHT PLACE. ADEQUATE VOLUME ACHIEVED. SATURATION 99%. ABG IN 1 HOUR. WILL CONTINUE TO MONITOR PT. ZIGGY ALVAREZ/ LOKIE ENGINEERZIGGY WYATT AT BEDSIDE WHILE INTUBATION.
--- NOTE | 2020-11-05 16:25 | NUR ---
Notes- here and do intubation.
[2020-11-05] MEDS ORDERED: MIDAZOLAM IN NACL,ISO-OSMOT/PF 100 ML IV ONE (16:30)
[2020-11-05] MEDS ORDERED: NACL 0.9% 1,000 ML IV ONE (16:45)
[2020-11-05] MEDS ORDERED: *TPN PER PHARMACY XX PRN (17:00)
[2020-11-05] MEDS ORDERED: DEXTROSE 50% JECT 50 ML DISP.SYRIN IVP PRN (17:00)
--- NOTE | 2020-11-05 17:24 | NUR ---
Called Dr. Villar with a consult, Dr. Rodriguez verification clerk spoke with Samantha from the exchange
--- NOTE | 2020-11-05 17:30 | NUR ---
rt notes [address] for head/abdomen. Sxn prior leaving. Baggged pt 15LPM BVM. 1745 Pt back to icu 5, connect to vent. no incident happened. pt saturation 100%. RN Nicolle cazares while CT prod.
--- NOTE | 2020-11-05 17:30 | NUR ---
NOTES- SPOKE TO DR. MCCRACKEN AND MADE AWARE OF CONSULTS.
--- NOTE | 2020-11-05 18:15 | NUR ---
SPOKE TO DR. PADGETT AND MADE AWARE OF CONSULTS.
[2020-11-05] MEDS: PANTOPRAZOLE SODIUM 40 MG in NS 50 ML IV SCH ×2 (18:45→22:00)
--- NOTE | 2020-11-05 18:55 | NUR ---
NOTES PT SEDATED, OFF RESTRAINTS, TOLERATING VENT SETTINGS SO FAR, CT A/P, HEAD DONE. NO RESULTS YET, WILL ENDORSE TO CALL DR. ABDALLA FOR RESULTS.
--- NOTE | 2020-11-05 20:00 | NUR ---
ORALLY INTUBATED. SUCTIONED WITH MOD RED-TINGED MUCUS OBTAINED. ORAL CARE GIVEN. ON VERSED DRIP AT 1MG/HR. RESTLESS, MOVING AND SHAKING HEAD. VERSED TITRATED TO 2 MG/HR. ON PROTONIX DRIP AT 8MG/HR. NGT TO LIS WITH DARK BROWNISH GREEN SECRETIONS DRAINING. GARCIA CATH PATENT DRAINING OLIGURIC CLOUDY JAVAN URINE TO GRAVITY. BELIA PICC LINE RYAN D/I. .
--- NOTE | 2020-11-05 22:00 | NUR ---
SUCTIONED. TURNED. HS CARE RENDERED
[2020-11-06] VITALS (29 sets, daily range): BP systolic 86–154
--- NOTE | 2020-11-06 | NUR ---
ACCU-CHEK 110, NO INSULIN DUE PER SLIDING SCALE. SUCTIONED. ORAL CARE DONE. TURNED. RESTLESS, SHAKING HEAD, HANDS ATTEMPTING TO GRAB ON ETT. VERSED DRIP TITRATED UP TO 3 MG/HR.
[2020-11-06] MEDS: INSULIN REGULAR, HUMAN 100 UNITS/ML, 10 ML VIAL (humuLIN R) SUBCUT PRN ×2 (00:08→06:40)
[2020-11-06] MEDS: LORazepam 2 MG/ML VIAL IVP PRN ×3 (00:09→21:26)
[2020-11-06] MEDS: PANTOPRAZOLE SODIUM 40 MG in NS 50 ML IV SCH ×2 (02:45→06:28)
[2020-11-06] MEDS: MORPHINE 4 MG INJ. 4 MG/ML VIAL IVP PRN ×2 (02:52→13:46)
--- NOTE | 2020-11-06 02:52 | NUR ---
MORPHINE 2 MG IVP GIVEN FOR RESTLESSNESS.
--- NOTE | 2020-11-06 03:00 | NUR ---
FIO2 DECREASED TO 70% BY RT PER STANDING ORDER TO KEEP POX > 92%.
[2020-11-06] MEDS: IPRATROPIUM/ALBUTEROL SULFATE 3 ML AMPUL.NEB (DUONEB) INH SCH ×6 (03:28→23:14)
--- NOTE | 2020-11-06 04:00 | NUR ---
SUCTIONED. TURNED. ORAL CARE DONE. AM CARE GIVEN. ARMS WEEPING.
--- NOTE | 2020-11-06 05:30 | NUR ---
FIO2 DECREASED TO 50 % BY RT. POX 96%-98%.
--- NOTE | 2020-11-06 06:00 | NUR ---
ACCU-CHEK 105, NO INSULIN DUE PER SLIDING SCALE COV. UO GOOD. REMAINS IN GUARDED CONDITION.
[2020-11-06] MEDS: PIPERACILLIN/TAZO 3.375/DEX-IS 50 ML IV SCH (06:28)
[2020-11-06 06:39] LABS: BASOPHILS % (AUTO) 0.2 % (0.0-2.0); HEMATOCRIT 35.1 % (36-54); HEMOGLOBIN 11.7 g/dL (14.0-18.0); LYMPHOCYTES # (AUTO) 0.2 K/uL (1.0-5.5); LYMPHOCYTES % (AUTO) 1.6 % (20.5-51.5); MEAN CORPUSCULAR HEMOGLOBIN 31 pg (27-31); MEAN CORPUSCULAR HGB CONC 33 % (32-36); MEAN CORPUSCULAR VOLUME 92 fL (79.0-98.0); MONOCYTES # (AUTO) 0.5 K/uL (0.0-1.0); MONOCYTES % (AUTO) 3.3 % (1.7-9.3); NEUTROPHILS # (AUTO) 13.6 K/uL (1.8-7.7); NEUTROPHILS % (AUTO) 94.9 % (40.0-70.0); PLATELET COUNT (AUTO) 109 K/uL (130-430); RED BLOOD CELL COUNT(AUTO) 3.81 MIL/uL (4.2-6.2); RED CELL DISTRIBUTION WIDTH 15.2 % (9.0-15.0); WHITE BLOOD COUNT (AUTO) 14.4 K/uL (4.8-10.8)
[2020-11-06] MEDS: LEVOTHYROXINE SODIUM 0.075 MG TABLET PO SCH (06:41)
[2020-11-06 06:58] LABS: CALCIUM 8.9 mg/dL (8.4-11.0); CREATININE 1.16 mg/dL (0.55-1.30); GLUCOSE 120 mg/dL (70-99); PHOSPHORUS 2.8 mg/dL (2.7-4.5); UREA NITROGEN, BLOOD 41 mg/dL (8-21)
[2020-11-06] MEDS ORDERED: ETOMIDATE 20 MG/ 10 ML VIAL (AMIDATE) IVP ONE (07:22)
[2020-11-06] MEDS ORDERED: ROCURONIUM BROMIDE 10 MG/ML (ZEMURON) IV ONE (07:22)
[2020-11-06] MEDS: BUDESONIDE 0.5 MG/2 ML AMPUL.NEB INH SCH ×2 (07:24→20:08)
[2020-11-06 07:33] LABS: ANION GAP 15 (5-15); CHLORIDE 117 mmol/L (98-107); POTASSIUM 4.3 mmol/L (3.5-5.1); SODIUM SERUM 148 mmol/L (136-145)
[2020-11-06 07:58] LABS: TRIGLYCERIDES 91 mg/dL (30-150)
[2020-11-06 08:24] LABS: ERYTHROCYTE SEDIMENTATION RATE 36 MM/HR (0-15)
--- NOTE | 2020-11-06 08:30 | NUR ---
VENT. DR ABDALLA AT BEDSIDE, AWARE OF ABG RESULT. VENT SETTING CHANGED TO FIO2 30%.
[2020-11-06] MEDS: NEPHROVITE, (FOLIC ACID/VITAMIN B COMP W-C 1 TAB) PO SCH (08:31)
[2020-11-06] MEDS: LEVOFLOXACIN 250 MG/D5W 250 ML IV SCH (08:32)
[2020-11-06] MEDS: FOLIC ACID 1 MG, MVI 10 ML in NACL 0.9% 1,000 ML IV SCH (08:33)
[2020-11-06] MEDS: THIAMINE HCL 100 MG, MAGNESIUM SULFATE 1 GM in NS 100 ML IV SCH (08:33)
[2020-11-06 09:12] LABS: C-REACTIVE PROTEIN QUANT 26.4 mg/dL (0-0.5)
[2020-11-06] MEDS ORDERED: FUROSEMIDE 20 MG/2 ML VIAL IVP ONE (10:30)
[2020-11-06] MEDS: D5W 1,000 ML IV SCH (10:41)
--- NOTE | 2020-11-06 10:52 | NUR ---
ANXIETY. PT TACHYPNEIC, MILDLY AGITATED, ATIVAN 0,5 MG IVP GIVEN.
[2020-11-06] MEDS: CEFEPIME 0.5 GM in D5W 50 ML IV SCH (11:11)
--- NOTE | 2020-11-06 13:50 | NUR ---
SKIN CARE. FOAM DRESSINGS REMOVED FROM ARMS AND LEGS. SKIN TEARS CLEANSED WITH SALINE, PAT DRY, FOAM DRESSING APPLIED TO COVER.
--- NOTE | 2020-11-06 14:38 | NUR ---
Nutrition Assessment Nutrition Follow Up Note Admission Dx: Pt w/: S/P Mechanical fall, Heavy use of ETOH recently elevated blood alcohol of 165, COPD, Hypothyroidism, Mild Leukocytosis, Anemia, Acute on chronic hypoxic respiratory failure per MD notes. PMH: COPD, Hypothyroidism. SARS-CoV-2 Ag Rapid 11/01 Negative Current Diet Order/Nutrition Support: TPN 42 mL/hr, AA%: 8.5%, D50%, no lipid emulsion, (TPN provides 1008 mL total volume, 1028 kcals, 43 grams of protein, GIR: 3 mg/kg/min), The above regimen meets 71% of energy needs and 58% of lower end protein needs (inadequate) RD note: observed pt at bedside at time of visit, pt weighed 126.3 lbs via bedscale. Observed no PN bag hanging or any PN being infused at time of visit. Per pts nurse, the pt will be starting TPN tonight at 9 pm. Planned endoscopy per pts nurse, but not scheduled at this time. Per pts nurse, medical team still ruling out GI bleeding. Pertinent medications: NaCl: 35 mL/hr, insulin, Synthroid, vit B complex, vit. C, folic acid, morphine I/Os (11/06): 3222/350 mL= + 2872 mL Edema: none noted Skin: R elbow, L hand, R knee, L leg, R hand skin tear, sacrum blanchable redness, R hip bruises GI: ABD soft, active bowel sounds, Gastric tube low intermittent suction, coffee ground drainage RD note: s/p intubation on 11/05, tachycardia resolved per MD note on 11/06/20 Ht: 5 ft 9 inches Wt: 57.606 kg, 126.7 lbs (11/02/20) IBW: 160#/ 73kg %IBW: 79% BMI: 18.8 kg/m2 Estimated Energy Expenditure (kcals/day) 6189-1763 kcal/day (25-30 kcal/kg CBW for gradual wt gain) VS. 1426 kcal via [id number] equation for ventilated patients Minute ventilation: 12 Max temp: 97.5 F /36. 4 C Estimated Protein Required (g/day) 73-110gm/day (1-1.5 gm/kg IBW for wt gain promotion, wound healing) Estimated Fluid Required (l/day) 1.5-1.7 L/day (1ml/calorie for maintenance) Problem/Etiology/Signs/Symptoms Inadequate oral intake r/t respiratory distress AEB NPO status and pt is on venti mask. 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 Altered nutrition related labs r/t endocrine and renal dysfunction AEB elevated POC BG, BUN, Creat labs. *Recommend: continue NPO as ordered. Recommend TPN @ 42 mL/hr with 10%AA, 50% dextrose with 250 ml 10% ILE, This will provide 1008 mL total volume, 1258 mL total volume with ILE, 101 gm protein, 1535 kcals, GIR: :3 mg/kg/min) The above regimen meets 100% of energy & protein needs, 84% of fluid needs Monitor PN, tolerance and infusion w/ goal of pt meeting more than 75% of estimated nutritional needs, labs trending WNL, normal GI function, skin integrity/wt maintenance. High Risk: F/U in 2-3days
[2020-11-06] MEDS: MIDAZOLAM IN NACL,ISO-OSMOT/PF 100 ML IV PRN (17:52)
--- NOTE | 2020-11-06 20:00 | NUR ---
ORALLY INTUBATED. SUCTIONED WITH SMALL AMOUNT OF THIN PINK TINGED MUCUS OBTAINED. ORAL CARE GIVEN. NGT TO LIS WITH SCANT AMOUNT OF COFFEE GROUND SECRETIONS NOTED. GARCIA CATH PATENT DRAINING CLOUDY JAVAN URINE TO GRAVITY. [facility] PICC LINE RYAN D/I.
[2020-11-06] MEDS ORDERED: MVI IV SCH ×7 (21:00)
[2020-11-06] MEDS ORDERED: NACL 0.9% 1,000 ML IV SCH (21:00)
[2020-11-06] MEDS ORDERED: MAGNESIUM SULFATE IV SCH ×7 (21:00)
[2020-11-06] MEDS ORDERED: TPN CENTRAL IV SCH ×7 (21:00)
[2020-11-06] MEDS ORDERED: [UNRECOGNIZED DRUG - OTHER] IV SCH ×7 (21:00)
[2020-11-06] MEDS ORDERED: SODIUM ACETATE IV SCH ×7 (21:00)
--- NOTE | 2020-11-06 21:00 | NUR ---
BOUTS OF RESTLESSNESS. DESATURATING IN THE 80'S. FIO2 INCREASED BY RT TO 50% AND VERSED DRIP INCREASED TO 5 MG/HR.
--- NOTE | 2020-11-06 21:14 | NUR ---
rt notes patient desaturating in the 80's sustained. fio2 increased from 40% to 50%. patient sating 93% 94% on 50% fio2. RN to increase sedation as well. RN Luiz made aware of the fio2 change. will continue to monitor.
--- NOTE | 2020-11-06 21:28 | NUR ---
ATIVAN 0.5 MG IVP GIVEN FOR RESTLESSNESS.
[2020-11-06] MEDS: PANTOPRAZOLE SODIUM 40 MG/VIAL (PROTONIX) IVP SCH (21:33)
--- NOTE | 2020-11-06 22:15 | NUR ---
REPORT GIVEN TO SADE SHEEHAN RN FOR CONTINUATION OF CARE.
--- NOTE | 2020-11-06 23:39 | NUR ---
Patient on VENTILATOR FI02 50 % TV 450 AC 26 suction up right position moderate amount thick white sputum tolerate chest movement symmetrical also Respirations Regular also unlabored HOB kept elevated / .
[2020-11-07] VITALS (32 sets, daily range): BP systolic 88–180
[2020-11-07] MEDS: CEFEPIME 0.5 GM in D5W 50 ML IV SCH ×3 (00:08→22:41)
[2020-11-07] MEDS: INSULIN REGULAR, HUMAN 100 UNITS/ML, 10 ML VIAL (humuLIN R) SUBCUT PRN ×4 (00:10→18:25)
--- NOTE | 2020-11-07 00:34 | NUR ---
Blood Sugar Glucose @ 238 mg dl 4 UNITS of regular insulin sub q. as ordered continue to monitor .
[2020-11-07] MEDS: LORazepam 2 MG/ML VIAL IVP PRN ×2 (02:42→22:05)
--- NOTE | 2020-11-07 02:51 | NUR ---
Turning & Reposition patient on TWO Hour schedule , off loading with pillows also used comfort measures implemented position change tolerated / .
--- NOTE | 2020-11-07 02:52 | NUR ---
LORAZEPAM 0.5 MG IVP administer for agitation , increased HR comfort measures helpful .
[2020-11-07] MEDS: IPRATROPIUM/ALBUTEROL SULFATE 3 ML AMPUL.NEB (DUONEB) INH SCH ×6 (03:19→23:45)
[2020-11-07] MEDS: D5W 1,000 ML IV SCH (03:44)
[2020-11-07] MEDS: MORPHINE 4 MG INJ. 4 MG/ML VIAL IVP PRN ×3 (04:49→22:28)
--- NOTE | 2020-11-07 05:51 | NUR ---
VERSED 6MG / 6 CC drip patient agitated , increased & helpful .
[2020-11-07] MEDS: LEVOTHYROXINE SODIUM 0.075 MG TABLET PO SCH (06:14)
[2020-11-07] MEDS: IPRATROPIUM BROM 0.5 MG/2.5 ML VIAL.NEB (ATROVENT) INH SCH ×3 (07:00→15:00)
[2020-11-07] MEDS: ALBUTEROL SULFATE 0.083% 2.5 MG/3 ML VIAL.NEB INH SCH ×3 (07:00→15:00)
--- NOTE | 2020-11-07 07:05 | NUR ---
RT NOTES FIO2 to 0.40 per titration order. Will monitor pt. Rn aware.
[2020-11-07] MEDS: BUDESONIDE 0.5 MG/2 ML AMPUL.NEB INH SCH ×2 (07:08→19:34)
[2020-11-07 07:23] LABS: ALANINE AMINOTRANSFERASE 52 U/L (12-78); ALBUMIN 1.6 g/dL (3.4-4.8); ANION GAP 11 (5-15); ASPARTATE AMINOTRANSFERASE 49 U/L (10-37); CALCIUM 8.6 mg/dL (8.4-11.0); CHLORIDE 115 mmol/L (98-107); CREATININE 1.39 mg/dL (0.55-1.30); GLUCOSE 241 mg/dL (70-99); PHOSPHORUS 2.2 mg/dL (2.7-4.5); POTASSIUM 3.6 mmol/L (3.5-5.1); SODIUM SERUM 144 mmol/L (136-145); TOTAL BILIRUBIN 0.5 mg/dL (0.0-1.0); UREA NITROGEN, BLOOD 49 mg/dL (8-21)
--- NOTE | 2020-11-07 07:48 | NUR ---
Dietary Recommendation Recommendation provided on 11/06/20 correction Updated recommendation TPN @ 42 mL/hr with 10% AA, 25% dextrose with 250 mL of 10% ILE. This will provide 1008 mL total volume, 1258 mL total volume, 101 gm protein, 1535 kcals, GIR: 3 mg/kg/min The above regimen meets 100% of energy and protein needs, 84% of fluid needs Diet order: Jevity 1.2 @ 60 mL/hr, 100 mL Q6H FWF noted. Pt no longer requires TPN at this time. RD to follow per nutrition care standards. KW, RD
--- NOTE | 2020-11-07 08:40 | NUR ---
Dr. Rock at bedside. Provided patient update. Received order to stop TPN and to start tubefeeding Glucerna 1.2 20cc/hr with 200 H20 Q6 flushes. Dietary ordered.
[2020-11-07] MEDS: NEPHROVITE, (FOLIC ACID/VITAMIN B COMP W-C 1 TAB) NG SCH (09:10)
--- NOTE | 2020-11-07 09:10 | NUR ---
RT NOTES Attempted to wake pt up for SBT. Patient just shook head, didn't follow commands at this time.
[2020-11-07] MEDS: PANTOPRAZOLE SODIUM 40 MG/VIAL (PROTONIX) IVP SCH ×2 (09:12→20:11)
[2020-11-07] MEDS: LEVOFLOXACIN 250 MG/D5W 250 ML IV SCH (09:15)
--- NOTE | 2020-11-07 13:22 | NUR ---
WOUND EVALUATION: Wound Consult received from Dr. Levi. Thank you, Dr. Levi, for the consult. Patient received in a [place] Bed with an IsoFlex [place] mattress with low air-loss therapy, awake, nonverbal, nonresponsive to verbal commands, patient is in labored breathing with accessory muscle use. Patient is unable to turn in bed independently. Shay Score is a 12. Past Medical History: COPD, Hypothyroidism. Patient was brought in by ambulance after sustaining a mechanical fall from his bed at his residence, patient was diagnosed with a right hip fracture during the admission process. Recent Labs: WBC 14.4, RBC 3.81, hemoglobin 11.7, hematocrit 35.1, platelets 109, ESR 36, chloride 115, BUN 49, creatinine 1.39, glucose 241, POC glucose 238, magnesium 2.2, phosphorus 2.2, AST 49, alkaline phosphatase 45, serum total protein 4.7, albumin 1.6. Microbiology: Blood culture results Klebsiella pneumoniae. Endotracheal sputum culture results in progress. Intrinsic factors that delay wound healing: COPD, severe Hypoalbuminemia. Extrinsic factors that delay wound healing: Immobility. Wound Assessment: 1. Sacral/buttocks areas: Blanchable redness, present on admission. No odor, no drainage. 2. Intergluteal Sulcus: Scar tissue, present on admission. Recommend continue: Cleanse involved areas with mild soap and water. Pat dry. Apply moisture barrier cream to involved areas. Cover sites with Sacral foam dressing. Perform site care daily, and as needed for dressing soiling or dislodgment. 3. Right Buttock near the Ischial Tuberosity: Small area of ecchymosis, present on admission. Recommend continue: Cover site with foam dressing for protection. Change dressing and assess site daily, and as needed for dressing soiling or dislodgment. 4. Right Posterior Lateral Hip and Buttock: Scattered areas of ecchymosis, present on admission. Improving. Recommend continue: No dressings needed. Continue to monitor sites every shift. 5. Right Proximal [place]: Skin tear, present on admission. Open area has 90% white tissue, 10% pink tissue, less than 5% dark discolored skin. No odor, scant serosanguineous drainage. Periwound intact. Surrounding tissue has ecchymosis. Skin tear measures 1.2 cm x 1.0 cm. Recommend continue: Cleanse skin tear with normal saline. Apply sure prep to perimeter of skin tear. Apply Hydrogel to skin tear bed. Cover with foam dressing. Perform skin tear care daily, and as needed for dressing soiling or dislodgment. 6. Left [place]: Skin tear, present on admission. Open area has 100% red tissue. No odor, scant sanguineous drainage. Periwound intact. Surrounding tissue has ecchymosis. Skin tear measures 1.0 cm x 1.5 cm. Recommend continue: Cleanse skin tear with normal saline. Apply sure prep to perimeter of skin tear. Apply Hydrogel to skin tear bed. Cover with foam dressing. Perform skin tear care daily, and as needed for dressing soiling or dislodgment. 7. Right Lateral Foot: Blanchable redness, present on admission. Recommend continue: Elevate, offload and float bilateral heels and feet with 1 pillow lengthwise under each extremity at all times. Ensure that feet float freely and do not touch bed or other surfaces at any time. 8. Right Posterior Lateral Forearm: Skin tear, present on admission. Open area has 10% dark discolored skin, 90% pink tissue. No odor, scant serosanguineous drainage. Periwound intact. Surrounding tissue has ecchymosis. Skin tear measures 1.2 cm x 1.8 cm. Recommend continue: Cleanse skin tear with normal saline. Apply sure prep to perimeter of skin tear. Apply Hydrogel to skin tear bed. Cover with foam dressing. Perform skin tear care daily, and as needed for dressing soiling or dislodgment. 9. Left Dorsal Wrist: Skin tear, present on admission. Site has 100% black scab. No odor, no drainage. Periwound intact. Surrounding tissue and extremity have ecchymosis. Skin tear measures 0.7 cm x 1.3 cm. Recommend: Cover with foam dressing for protection. Perform site care daily, and as needed for dressing soiling or dislodgment. 10. Right Dorsal Hand: Skin tear, present on admission. Open area has 100% red tissue. No odor, no drainage. Periwound intact. Surrounding tissue has ecchymosis. Skin tear measures 0.8 cm x 0.3 cm. Recommend continue: Cleanse skin tear with normal saline. Apply sure prep to perimeter of skin tear. Apply Hydrogel to skin tear bed. Cover with foam dressing. Perform skin tear care daily, and as needed for dressing soiling or dislodgment. 11. Right Dorsal Hand, Lateral to Site 10: Skin tear, present on admission. Open area has 90% white tissue, 10% red tissue. No odor, small sanguineous drainage. Periwound intact. Surrounding tissue has ecchymosis. Skin tear measures 2.3 cm x 1.5 cm. Recommend continue: Cleanse skin tear with normal saline. Apply moisture barrier cream to skin tear. Cover with foam dressing. Perform skin tear care daily, and as needed for dressing soiling or dislodgment. 12. Left Heel: Blanchable redness. 13. Right Heel: Blanchable redness. Recommend: Elevate, offload and float bilateral heels with one pillow lengthwise under each extremity at all times. Also recommend: Reposition patient [id number] only every 2 hours with pillow support and off-load pressure areas with pillows for pressure re-distribution. Offload, elevate and float bilateral heels with 1 pillow at all times. Perform skin care and monitor skin integrity Q shift. Use moisture barrier cream on buttocks and other moisture susceptible areas QID and as needed for soiling. Maintain patient on low air-loss therapy.
--- NOTE | 2020-11-07 20:00 | NUR ---
INITIAL NOTE PATIENT IS AGITATED AT THE BEGINNING OF SHIFT. PT PLACED ON RESTRAINTS IN THE MORNING. MORNING RN STATED THAT SHE COMMUNICATED WITH THE DR. PT IS VENTED. CALL LIGHT IN REACH. PATIENT EDUCATED CLINICAL ASST LIGHT. PATIENT UNSUCCESSFULLY DEMONSTRATES USAGE OF CALL LIGHT. BED IS LOCKED, ALARMED, AND AT THE LOWEST POSITION. FALL, SAFETY, ASPIRATION, AND RESPIRATORY PRECAUTIONS WILL BE IN PLACE THROUGHOUT THE SHIFT. PLAN OF CARE IS DISCUSSED WITH PATIENT. PT IS ON VERSED AT 2.5 ML/HR.
[2020-11-07] MEDS: MIDAZOLAM IN NACL,ISO-OSMOT/PF 100 ML IV PRN (20:09)
[2020-11-07] MEDS ORDERED: [UNRECOGNIZED DRUG - OTHER] IV SCH ×9 (21:00)
[2020-11-07] MEDS ORDERED: TPN CENTRAL IV SCH ×9 (21:00)
[2020-11-07] MEDS ORDERED: POTASSIUM ACETATE IV SCH ×9 (21:00)
[2020-11-07] MEDS ORDERED: MVI IV SCH ×9 (21:00)
[2020-11-07] MEDS ORDERED: MAGNESIUM SULFATE IV SCH ×9 (21:00)
--- NOTE | 2020-11-07 22:33 | NUR ---
IV PLACEMENT: # 20 gauge angiocath placed to right wrist. Use of asceptic technique. Opsite placed over site. Blood return noted. Flushed with 10 cc of normal saline. No evidence of infiltration noted. Patient tolerated well.
[2020-11-08] VITALS (31 sets, daily range): BP systolic 85–172
[2020-11-08] MEDS: MORPHINE 4 MG INJ. 4 MG/ML VIAL IVP PRN (02:35)
[2020-11-08] MEDS: IPRATROPIUM/ALBUTEROL SULFATE 3 ML AMPUL.NEB (DUONEB) INH SCH ×5 (03:10→19:18)
[2020-11-08] MEDS: LEVOTHYROXINE SODIUM 0.075 MG TABLET PO SCH (06:13)
[2020-11-08 06:59] LABS: HEMATOCRIT 37.9 % (36-54); HEMOGLOBIN 12.4 g/dL (14.0-18.0); MEAN CORPUSCULAR HEMOGLOBIN 30 pg (27-31); MEAN CORPUSCULAR HGB CONC 33 % (32-36); MEAN CORPUSCULAR VOLUME 92 fL (79.0-98.0); PLATELET COUNT (AUTO) 112 K/uL (130-430); RED BLOOD CELL COUNT(AUTO) 4.14 MIL/uL (4.2-6.2); RED CELL DISTRIBUTION WIDTH 15.4 % (9.0-15.0); WHITE BLOOD COUNT (AUTO) 22.4 K/uL (4.8-10.8)
[2020-11-08] MEDS: ALBUTEROL SULFATE 0.083% 2.5 MG/3 ML VIAL.NEB INH SCH ×5 (07:00→23:00)
[2020-11-08] MEDS: IPRATROPIUM BROM 0.5 MG/2.5 ML VIAL.NEB (ATROVENT) INH SCH ×5 (07:00→23:00)
--- NOTE | 2020-11-08 07:00 | NUR ---
DC ON RIGHT WRIST. IV IS STICKING OUT. TIP IS IN TACT. NO S/S OF MAJOR BLEEDING NOTED.
[2020-11-08 07:05] LABS: ALANINE AMINOTRANSFERASE 54 U/L (12-78); ALBUMIN 1.8 g/dL (3.4-4.8); ANION GAP 11 (5-15); ASPARTATE AMINOTRANSFERASE 50 U/L (10-37); CALCIUM 8.7 mg/dL (8.4-11.0); CHLORIDE 113 mmol/L (98-107); CREATININE 1.03 mg/dL (0.55-1.30); GLUCOSE 99 mg/dL (70-99); PHOSPHORUS 1.4 mg/dL (2.7-4.5); POTASSIUM 3.5 mmol/L (3.5-5.1); SODIUM SERUM 145 mmol/L (136-145); TOTAL BILIRUBIN 0.9 mg/dL (0.0-1.0); UREA NITROGEN, BLOOD 45 mg/dL (8-21)
--- NOTE | 2020-11-08 07:10 | NUR ---
SBAR REPORT ENDORSED TO AM NURSE.
[2020-11-08] MEDS: BUDESONIDE 0.5 MG/2 ML AMPUL.NEB INH SCH ×2 (07:17→19:19)
--- NOTE | 2020-11-08 07:32 | NUR ---
AM ASSESSMENT. PT ON VERSED DRIP AT 7.5 MG/HR, AND TITRATED TO 4 MG/HR, FOR SPONTANEOUS BREATHING TRIAL, TEMP 99.2, SKIN MOIST AND TACHYPNEIC, TURNED PT TO A COMFORTABLE SIDE, HEAD OF BED ELEVATED, CONTINUE TO MONITOR.
[2020-11-08] MEDS: LORazepam 2 MG/ML VIAL IVP PRN (07:52)
--- NOTE | 2020-11-08 07:52 | NUR ---
ANXIETY. PT MEDICATED WITH ATIVAN 0.5 MG IVP, BREATHING TACHYPNEIC, ARMS OCCASIONALLY SHAKING. VERSED TITRATED UP TO 8 MG/HR FOR COMFORT.
[2020-11-08] MEDS: MIDAZOLAM IN NACL,ISO-OSMOT/PF 100 ML IV PRN ×2 (07:58→20:41)
--- NOTE | 2020-11-08 08:10 | NUR ---
RT NOTES Vent to AC [address] Rock. was made aware of pt's respiratory distress when sedation was decrease, unable to carry out SBT.
--- NOTE | 2020-11-08 08:24 | NUR ---
ANXIETY. PT SEEN BY DR MUNOZ, NEW ORDERS RECEIVED. MORPHINE 6 MG IVP GIVEN, PT TACHYPNEIC.
[2020-11-08] MEDS ORDERED: MORPHINE SULFATE 10 MG/ML VIAL IVP ONE (08:30)
[2020-11-08 08:31] LABS: BAND % (MANUAL) 2 % (0-6); BASOPHILS % (MANUAL) 0 % (0-2); EOSINOPHILS % (MANUAL) 1 % (0-7); LYMPHOCYTES % (MANUAL) 3 % (20-46); MONOCYTES % (MANUAL) 5 % (0-11)
--- NOTE | 2020-11-08 09:16 | NUR ---
RT NOTES FIO2 TO 0.50 due to low saturation. Improved to 93-94%. Rn made aware.
[2020-11-08] MEDS: PANTOPRAZOLE SODIUM 40 MG/VIAL (PROTONIX) IVP SCH ×2 (09:28→20:39)
[2020-11-08] MEDS: LEVOFLOXACIN 250 MG/D5W 250 ML IV SCH (09:29)
[2020-11-08] MEDS: methylPREDNISolone SOD SUCC 40 MG/ML VIAL IVP SCH (09:29)
[2020-11-08] MEDS: NEPHROVITE, (FOLIC ACID/VITAMIN B COMP W-C 1 TAB) NG SCH (09:29)
--- NOTE | 2020-11-08 09:35 | NUR ---
REST. PT CALM, RESPIRATORY RATE BETWEEN 24 TO 30. CONTINUE TO MONITOR PT.
[2020-11-08] MEDS: PIPERACILLIN/TAZO 2.25G/DEX-IS 50 ML IV SCH ×2 (12:08→17:48)
--- NOTE | 2020-11-08 12:27 | NUR ---
Nutrition Follow Up Note Consult for Tube Feeding Admission Dx: Pt w/: S/P Mechanical fall, Heavy use of ETOH recently elevated blood alcohol of 165, COPD, Hypothyroidism, Mild Leukocytosis, Anemia, Acute on chronic hypoxic respiratory failure per MD notes. PMH: COPD, Hypothyroidism. Current Diet Order/Nutrition Support: Glucerna 1.2 @ 20 mL/hr, FWF 200 Q6H via NG tube (provides a total volume of 480 mL, 576 kcals, 386 mL free fluids, 29 gm protein, FWF provides 800 mL, total fluids with FWF: 1186 mL) Current EN regimen meets 40% lower end estimated energy needs, 40% lower end estimated protein needs, and 79% estimated fluid needs (inadequate energy and protein intake) RD note: TPN 60 mL/hr, AA%: 5.4%, D30%, no lipid emulsion noted in pts medications (TPN provides 1440 mL total volume, 890 kcals, 39 grams of protein, GIR: 2.6 mg/kg/min), Per pts nurse TPN is turned off. The plan for nutrition support is to rely on enteral nutrition to meet the patients estimated nutrition needs, per pts nurse, GRV= 0 mL, no ABD distension observed at this time. Pt is currently tolerating Glucerna 1.2 @ 20 mL/hr. Pertinent medications: Nephro-jeffrey, insulin, Synthroid, morphine, solu-medrol Labs: (11/08): Hgb: 12.4L, Cl: 113H, C02: 21L, BUN: 45H, Creat WNL, albumin: 1.8L, POC glucose: 129H SARS-Cov-2 negative on 11/01/20 I/Os: (11/08): 1589/1550= + 39 mL, (11/06): 3222/350 mL= + 2872 mL EN infusion; (11/08): 50 mL TPN infusion (11/08): 1224 mL [provided 33 gm protein: 132 kcals, 184 gm dextrose: 624 kcals, total kcals from TPN: 756 kcals] Edema: Non-pitting edema, L arm Shay: 13 (moderate risk) Skin: R elbow, R knee, L leg, R hand skin tear, R hip and L arm ecchymosis, L hip erythema GI: ABD soft, active bowel sounds, Last BM: 11/07/20 Ht: 5 ft 9 inches Wts: : (11/07/20) 57.606 kg, 126.7 lbs, (11/02/20)57.606 kg, 126.7 lbs (wt IBW: 160#/ 73kg %IBW: 79% BMI: 18.8 kg/m2 Estimated Energy Expenditure (kcals/day) 5956-8517 kcal/day (25-30 kcal/kg CBW for gradual wt gain) VS. 1426 kcal via [id number] equation for ventilated patients Minute ventilation: 12 Max temp: 97.5 F /36. 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 Ongoing 2)Altered nutrition related labs r/t endocrine and renal dysfunction AEB elevated POC BG, BUN, labs (modified, some improvement, creat WNL) 3)Inadequate intake from EN infusion related to a low tube feeding infusion rate as evidenced by pts EN regimen only meeting 40% of lower end estimated protein and kcal needs (new, ongoing) Dietitian Recommendations 1)Recommend: continue NPO as ordered. 2)Glucerna 1.2 @ 60 mL/hr (new goal rate), this regimen provides 1440 mL total volume, 1728 kcals, 86 gm protein, 1159 mL free fluids (meets 100% of kcal, and protein needs) 3)Continue FWF as ordered (200 mL Q6H)- provides 800 mL, with free fluids from EN, total fluid: 1959 mL (meets 100% of fluid needs) 4)Add PRASANTH once daily via NG tube to aid in wound healing, (moderate risk Shay score, Shay: 13) Recommendations provided to pts primary RN paged, awaiting call back Monitor nutrition support & tolerance w/ goal of pt meeting more than 75% of estimated nutritional needs, labs trending WNL, normal GI function, skin integrity/wt maintenance. High Risk: F/U in 2-3days KW, RD
--- NOTE | 2020-11-08 12:29 | NUR ---
Dietitian Recommendations 1)Recommend: continue NPO as ordered. 2)Glucerna 1.2 @ 60 mL/hr (new goal rate), this regimen provides 1440 mL total volume, 1728 kcals, 86 gm protein, 1159 mL free fluids (meets 100% of kcal, and protein needs), Continue at 20 mL/hr, advance by 10 mL Q6H until goal rate is reached. 3)Continue FWF as ordered (200 mL Q6H)- provides 800 mL, with free fluids from EN, total fluid: 1959 mL (meets 100% of fluid needs) 4)Add PRASANTH once daily via NG tube to aid in wound healing, (moderate risk Shay score, Shay: 13) KW, RD
[2020-11-08] MEDS: NOREPINEPHRINE BITARTRATE 8 MG in D5W 242 ML IV PRN (14:26)
[2020-11-08] MEDS: INSULIN REGULAR, HUMAN 100 UNITS/ML, 10 ML VIAL (humuLIN R) SUBCUT PRN (17:31)
[2020-11-08] MEDS: MORPHINE SULFATE 10 MG/ML VIAL IVP PRN (17:47)
--- NOTE | 2020-11-08 17:47 | NUR ---
ANXIETY. PT MEDICATED WITH MORPHINE 6 MG IVP, MOVING HIS ARMS WITHOUT PURPOSE, EYES CLOSED, TURNED AND REPOSITIONED PT IN BED.
[2020-11-08] MEDS ORDERED: POTASSIUM ACETATE IV SCH ×8 (21:00)
[2020-11-08] MEDS ORDERED: TPN CENTRAL IV SCH ×8 (21:00)
[2020-11-08] MEDS ORDERED: [UNRECOGNIZED DRUG - OTHER] IV SCH ×8 (21:00)
[2020-11-08] MEDS ORDERED: K PHOS IV SCH ×8 (21:00)
[2020-11-09] VITALS (34 sets, daily range): BP systolic 93–177
[2020-11-09] MEDS: PIPERACILLIN/TAZO 2.25G/DEX-IS 50 ML IV SCH ×5 (00:15→23:10)
[2020-11-09] MEDS: INSULIN REGULAR, HUMAN 100 UNITS/ML, 10 ML VIAL (humuLIN R) SUBCUT PRN ×3 (00:17→17:12)
[2020-11-09] MEDS: LORazepam 2 MG/ML VIAL IVP PRN (00:28)
[2020-11-09] MEDS: MORPHINE SULFATE 10 MG/ML VIAL IVP PRN (01:16)
[2020-11-09] MEDS: IPRATROPIUM/ALBUTEROL SULFATE 3 ML AMPUL.NEB (DUONEB) INH SCH ×6 (02:10→23:13)
[2020-11-09 06:30] LABS: BASOPHILS % (AUTO) 0.1 % (0.0-2.0); HEMATOCRIT 35.5 % (36-54); HEMOGLOBIN 11.7 g/dL (14.0-18.0); LYMPHOCYTES # (AUTO) 0.5 K/uL (1.0-5.5); LYMPHOCYTES % (AUTO) 2.7 % (20.5-51.5); MEAN CORPUSCULAR HEMOGLOBIN 30 pg (27-31); MEAN CORPUSCULAR HGB CONC 33 % (32-36); MEAN CORPUSCULAR VOLUME 92 fL (79.0-98.0); NEUTROPHILS # (AUTO) 15.4 K/uL (1.8-7.7); PLATELET COUNT (AUTO) 113 K/uL (130-430); RED BLOOD CELL COUNT(AUTO) 3.87 MIL/uL (4.2-6.2); RED CELL DISTRIBUTION WIDTH 15.5 % (9.0-15.0); WHITE BLOOD COUNT (AUTO) 16.8 K/uL (4.8-10.8)
[2020-11-09] MEDS: LEVOTHYROXINE SODIUM 0.075 MG TABLET PO SCH (06:42)
[2020-11-09 06:44] LABS: ALANINE AMINOTRANSFERASE 52 U/L (12-78); ALBUMIN 1.5 g/dL (3.4-4.8); ANION GAP 10 (5-15); ASPARTATE AMINOTRANSFERASE 34 U/L (10-37); CALCIUM 8.6 mg/dL (8.4-11.0); CHLORIDE 114 mmol/L (98-107); CREATININE 0.99 mg/dL (0.55-1.30); GLUCOSE 119 mg/dL (70-99); PHOSPHORUS 2.4 mg/dL (2.7-4.5); POTASSIUM 4.1 mmol/L (3.5-5.1); SODIUM SERUM 146 mmol/L (136-145); TOTAL BILIRUBIN 0.6 mg/dL (0.0-1.0); UREA NITROGEN, BLOOD 50 mg/dL (8-21)
[2020-11-09] MEDS: BUDESONIDE 0.5 MG/2 ML AMPUL.NEB INH SCH ×2 (07:23→21:39)
[2020-11-09 07:34] LABS: NEUTROPHILS % (AUTO) 91.2 % (40.0-70.0)
--- NOTE | 2020-11-09 07:45 | NUR ---
RT NOTE: 0745 Decreased FIO2 to 40%. Pt maintaining SpO2 between 95-96% 0800 Increased FIO2 to 45% due to SpO2 below 92%. Will continue to titrate and monitor pt. RN made aware of changes. Addendum: 11/09/20 at 0805 by Kat Cruz RT Amended: Links added.
--- NOTE | 2020-11-09 07:50 | NUR ---
AM ROUNDS: RECEIVED PATIENT ON MECHANICAL VENTILATOR,WITH AN FIO2=50%.WITH GOOD SATURATION. RIGHT UPPER ARM PICC LINE,VERSED AT 8MG/H,NS TO TKO,LEVOPHED AT 0.3MCG/KG/MIN. ON MODERATE SEDATION. RESPONSE TO TACTILE STIMULI. LEFT NARES GLUCERNA 1.2CAL @ 60CC/H. GARCIA IN PLACE. CONTINUE TO MONITOR. CONDITION GUARDED.
--- NOTE | 2020-11-09 08:00 | NUR ---
DECREASED FIO2 : FIO2=45% BY RT TO KEEP SATURATION >92% ORDERED.
[2020-11-09] MEDS: MIDAZOLAM IN NACL,ISO-OSMOT/PF 100 ML IV PRN (08:02)
[2020-11-09] MEDS: methylPREDNISolone SOD SUCC 40 MG/ML VIAL IVP SCH (08:11)
[2020-11-09] MEDS: NEPHROVITE, (FOLIC ACID/VITAMIN B COMP W-C 1 TAB) NG SCH (08:11)
[2020-11-09] MEDS: PANTOPRAZOLE SODIUM 40 MG/VIAL (PROTONIX) IVP SCH ×2 (08:11→21:00)
[2020-11-09] MEDS ORDERED: METOPROLOL TARTRATE 50 MG TABLET PO ONE (09:00)
--- NOTE | 2020-11-09 09:35 | NUR ---
PRECEDEX: STARTED PRECEDEX PER PROTOCOL AT 0.3MCG/KG/MIN AND DECREASED VERSED AT 5MG/H BY VANDANA ICU CHARGE NURSE.
[2020-11-09] MEDS: DEXMEDETOMIDINE HCL 200 MCG in NS 48 ML IV PRN ×2 (09:44→17:04)
[2020-11-09] MEDS ORDERED: FUROSEMIDE 20 MG/2 ML VIAL IVP ONE (12:00)
[2020-11-09] MEDS: METOPROLOL TARTRATE 50 MG TABLET PO SCH ×2 (15:29→21:01)
--- NOTE | 2020-11-09 18:30 | NUR ---
END OF SHIFT: PATIENT MAINTAINED VENT SETTINGS WITH FIO2=40%,O2 SATURATION=95%.RIGHT UPPER ARM PICC LINE IN PLACE,IVF TO TKO.STILL ON LEVOPHED AT 0.03MCG/KG/MIN.PRECEDEX AT 0.4MCG/KG/H AND VERSED AT 2MG/H . LEFT NARES GLUCERNA AT 60CC/H. BOTH UPPER ARMS ARE WEEPING,CARE RENDERED. GARCIA DRAINING TO YELLOW URINE IN MODERATION. CALM THIS TIME. CONDITION GUARDED.
--- NOTE | 2020-11-09 19:15 | NUR ---
change of shift.pt.presents ett/og-tube intact;ett:#8,lipline;26cm.pt.presents ogt tube insertion;rt.nares intact;og-tube feed infusing;glucerna:1.2 rate 60ml/hr.pt.presents picc line;location:rt.bicept;iv fluids.tko rate,drips;precedex:dose;0.3mcq/kg/hr. rate=4ml/hr.versed;2mg/hr=kvrd0ip/hr.pt.presents [place]eg[place] cath intact;patent urine content present.pt.presents edema;profound status cutaneous weeping.call light w/in access of the pt. Addendum: 11/10/20 at 0031 by Adonay Zelaya RN ventilator:settings tv:450,fio2-%=40%,a/c:8,peep:5.pt.tolerating the vent settings;02-sat%=94%.
--- NOTE | 2020-11-09 20:00 | NUR ---
pt.assessed.v/s assessed values note h/r,b/p status.ett/ogt intact;i have attended to the oral care/suction.ogt tube feed infusing.picc line intact;iv fluids/drips precedex/versed infusing.[place]eg[place] cath intact;patent urine content present.pt.assessed for cleanliness.pt.repositioned.o2-sat%=95%per flacc pain mgx pt.absent facial grimaces/body posturing.call light placed w/in access of the pt.
--- NOTE | 2020-11-09 21:00 | NUR ---
2100pmedications administered via the og-tube.ogt tube flushed w/out resistance.i have noted the ogt feed residuals status:elevated amount.i have held the og-tube feed.to monitor to resume 0g-tube feed.v/s values:note h/r,b/p status wnl.call light placed w/in access of the pt.
--- NOTE | 2020-11-09 22:00 | NUR ---
pt.assessed.v/s assessed note h/r,b/p.status.ett/ogtube intact.i have attended to the oral care/suction.picc line intact iv fluids/drips;precedex/versed infusing.[place] cath intact;patent urine content present.pt.assessed for cleanliness.pt.repositioned.per flacc pain mgx pt.absent facial grimaces/body posturing.call light/telephone placed w/in access of the pt.
--- NOTE | 2020-11-09 23:15 | NUR ---
pt.assessed.blood glucose assessed value;133mg/dl.i have administered zosyn abx ivpb 0000 midnight dose@this hour. per flacc pain mgx pt.absent facial grimaces/body posturing.
[2020-11-10] VITALS (29 sets, daily range): BP systolic 80–162
--- NOTE | 2020-11-10 | NUR ---
pt.assessed.pt.presents affect:restless.i have administered ativan:0.5mg ivp.ett/ogtube intact.i have attended to the oral care/suction.picc line intact iv fluids/drips;precedex/versed infusing.[place]eg[place] cath intact;patent urine content present.pt.assessed for cleanliness.pt.repositioned.per flacc pain mgx pt.absent facial grimaces/body posturing.02-sat%=94%.call light placed w/in access of the pt.
[2020-11-10] MEDS: LORazepam 2 MG/ML VIAL IVP PRN ×3 (00:13→12:42)
--- NOTE | 2020-11-10 02:00 | NUR ---
pt.assessed.v/s assessed values note h/r,b/p status wnl.ett/ogt intact.i have attended to the oral care/suction.picc line intact iv iv fluids drips; precedex/versed infusing.baneg[place] cath intact urine content present.pt.assessed for cleanliness.pt.repositioned.per flacc pain mgx pt. absent facial grimaces/body posturing.general status stable.respiratory status:02-sat%=94%.call light placed w/in access of the pt. Addendum: 11/10/20 at 0245 by Adonay Zelaya RN i have administered the drip;precedex.per protocol;v/s noted co-signed per priscilla.
[2020-11-10] MEDS: DEXMEDETOMIDINE HCL 200 MCG in NS 48 ML IV PRN ×2 (02:26→08:09)
--- NOTE | 2020-11-10 04:00 | NUR ---
pt.assessed.v/s assessed values wnl.ett/ogt intact.i have attended to the oral care/suction.picc line intact iv fluids drips;precedex/versed infusing.baneg[place] cath intact urine content present.per flacc pain mgx pt.absent facial grimaces/body posturing.general status stable.respiratory status stable:o2-sat%=95%.pt.assessed for cleanliness.pt.repositioned.call light placed w/in access of the pt.
[2020-11-10] MEDS: PIPERACILLIN/TAZO 2.25G/DEX-IS 50 ML IV SCH ×3 (05:03→17:13)
[2020-11-10] MEDS: LEVOTHYROXINE SODIUM 0.075 MG TABLET PO SCH (05:03)
[2020-11-10 06:08] LABS: ALANINE AMINOTRANSFERASE 52 U/L (12-78); ALBUMIN 1.6 g/dL (3.4-4.8); ANION GAP 12 (5-15); ASPARTATE AMINOTRANSFERASE 40 U/L (10-37); CALCIUM 8.3 mg/dL (8.4-11.0); CHLORIDE 112 mmol/L (98-107); CREATININE 1.07 mg/dL (0.55-1.30); GLUCOSE 118 mg/dL (70-99); POTASSIUM 4.2 mmol/L (3.5-5.1); SODIUM SERUM 144 mmol/L (136-145); TOTAL BILIRUBIN 0.6 mg/dL (0.0-1.0); UREA NITROGEN, BLOOD 53 mg/dL (8-21)
[2020-11-10 06:27] LABS: BASOPHILS % (AUTO) 0.1 % (0.0-2.0); EOSINOPHILS # (AUTO) 0.2 K/uL (0.0-0.4); EOSINOPHILS % (AUTO) 1.3 % (0.0-4.0); HEMATOCRIT 36.6 % (36-54); LYMPHOCYTES # (AUTO) 0.6 K/uL (1.0-5.5); LYMPHOCYTES % (AUTO) 4.6 % (20.5-51.5); MEAN CORPUSCULAR HEMOGLOBIN 30 pg (27-31); MEAN CORPUSCULAR HGB CONC 33 % (32-36); MEAN CORPUSCULAR VOLUME 91 fL (79.0-98.0); MONOCYTES # (AUTO) 0.7 K/uL (0.0-1.0); MONOCYTES % (AUTO) 5.1 % (1.7-9.3); NEUTROPHILS # (AUTO) 12.4 K/uL (1.8-7.7); NEUTROPHILS % (AUTO) 88.9 % (40.0-70.0); PLATELET COUNT (AUTO) 129 K/uL (130-430); RED BLOOD CELL COUNT(AUTO) 4.01 MIL/uL (4.2-6.2); RED CELL DISTRIBUTION WIDTH 14.9 % (9.0-15.0); WHITE BLOOD COUNT (AUTO) 13.9 K/uL (4.8-10.8)
--- NOTE | 2020-11-10 06:30 | NUR ---
PT.ASSEsseD.V/S AsSEssed WNL.ETT/OGT INtACT.i HaVE ATtended TO THE OrAL CARE/SUcTtion.I have AtTEnded TO THE WOUND CARE DSG ChANGED.I have ATtEnded To the PICC lINE DSG CHANGE.I HAVE weighed THE PT:2/t CHF.G-TUBE FEed Resduals:assessed =OML.I HAVe ReSuMED THe G-Tube FEED.PT.ClEaNED/REpOsitioNED.CALl lIGHT PlACED W/in aCCESS OF THE PT. blood glucose assessed.
--- NOTE | 2020-11-10 06:59 | NUR ---
OPENING NOTE: REPORT RCVD AT BEDSIDE FROM NOC RN, ALL CARES RCVD. ALL SAFETY PRECAUTIONS IN PLACE.
[2020-11-10] MEDS: methylPREDNISolone SOD SUCC 40 MG/ML VIAL IVP SCH ×2 (08:22→20:16)
[2020-11-10] MEDS: PANTOPRAZOLE SODIUM 40 MG/VIAL (PROTONIX) IVP SCH ×2 (08:22→20:17)
[2020-11-10] MEDS: NEPHROVITE, (FOLIC ACID/VITAMIN B COMP W-C 1 TAB) NG SCH (08:22)
[2020-11-10] MEDS: METOPROLOL TARTRATE 50 MG TABLET PO SCH ×4 (08:23→20:20)
--- NOTE | 2020-11-10 08:29 | NUR ---
DR. MCCALL: MD AT BEDSIDE, VERBAL REPORT GIVEN.
[2020-11-10] MEDS ORDERED: HEPARIN SODIUM,PORCINE 5,000 UNITS/ML VIAL SUBCUT ONE (09:00)
[2020-11-10] MEDS ORDERED: NALOXONE HCL 0.4 MG/ML AMP (NARCAN) IVP PRN (09:15)
--- NOTE | 2020-11-10 09:15 | NUR ---
MD MCCALL PAGED: PENDING RETURN CALL.
[2020-11-10] MEDS ORDERED: HEPARIN SODIUM,PORCINE 5,000 UNITS/ML VIAL ONE (09:23)
[2020-11-10] MEDS ORDERED: MORPHINE SULFATE IN 0.9 % NACL 100 ML IV ONE (09:24)
[2020-11-10] MEDS: MORPHINE SULFATE IN 0.9 % NACL 100 ML IV PRN (09:31)
[2020-11-10] MEDS: BUDESONIDE 0.5 MG/2 ML AMPUL.NEB INH SCH ×2 (09:35→19:40)
[2020-11-10] MEDS: IPRATROPIUM/ALBUTEROL SULFATE 3 ML AMPUL.NEB (DUONEB) INH SCH ×4 (09:35→23:11)
--- NOTE | 2020-11-10 12:00 | NUR ---
BRITTNEY ALAVREZ: MD AT BEDSIDE, NO NEW ORDERS, VERBAL REPORT GIVEN.
[2020-11-10] MEDS: METOCLOPRAMIDE HCL 10 MG/2 ML VIAL IVP SCH ×2 (13:13→21:11)
--- NOTE | 2020-11-10 15:31 | NUR ---
LAB RESULT: LAB REPORTED GRAM NEG RODS X 4 BOTTLES, MD DR. DAYRON NEAL. PENDING RETURN CALL. Addendum: 11/10/20 at 1534 by Jodee Silverman RN CARROLL CHART
[2020-11-10] MEDS: MIDAZOLAM IN NACL,ISO-OSMOT/PF 100 ML IV PRN (15:44)
[2020-11-10] MEDS: NOREPINEPHRINE BITARTRATE 8 MG in D5W 242 ML IV PRN (16:30)
--- NOTE | 2020-11-10 18:57 | NUR ---
RN ROUNDS: PATIENT LINENS CHANGED, TURNED AND REPOSITIONED, ALL SAFETY PRECAUTIONS IN PLACE, BED LOW AND LOCKED.
--- NOTE | 2020-11-10 19:30 | NUR ---
Pt report received. Pt responds to touch by opening eyes and moving BUE. He then drifts back to sleep. ETT size 8, secured at 26 to lip line with settings of A/C, 18, 450, 50%, 5. Rhonchi to BBS, even and non-labored respirations. NGT secure to Left nare with Glucerna 1.2 at 10 mL/hr. Residual at 15 mL, Glucerna rate increased to 15 mL/hr. RUE PICC patent and secure with Levophed infusing at 0.06 mcg/kg/min, Versed at 6 mg/hr, Morphine at 5 mg/hr, and NS at KVO rate. F/C secure with yellow urine to bag. Multiple skin tears/wounds generalized to body. Bilateral soft wrist restraints in place. VSS, NAD.
--- NOTE | 2020-11-10 20:15 | NUR ---
B/P 149/75, HR 65. Levophed rate decreased 0.05 mcg/kg/min.
[2020-11-10] MEDS: HEPARIN SODIUM,PORCINE 5,000 UNITS/ML VIAL SUBCUT SCH (20:18)
[2020-11-11] VITALS (30 sets, daily range): BP systolic 76–169
--- NOTE | 2020-11-11 | NUR ---
Pt resting quietly, no changes in vent settings, VSS, NAD. B/P 99/42, P 67. Levophed rate continues at 0.03 mcg/kg/min, Versed drip rate decreased to 5 mg/hr and Morphine drip rate decreased to 4 mg/hr Addendum: 11/11/20 at 0052 by Marcelo Hartley RN EIC: Levophed rate at 0.06 mcg/kg/min. Addendum: 11/11/20 at 0100 by Marcelo Hartley RN 11/10/20 at 0000 EIC: Correct Levophed rate at 0.04 mcg/kg/min.
--- NOTE | 2020-11-11 00:14 | NUR ---
B/P 81/39, HR 67. Levophed drip increased to 0.04 mcg/kg/min.
--- NOTE | 2020-11-11 00:25 | NUR ---
B/P 66/42, HR 66. Levophed drip increased to 0.05 mcg/kg/min.
--- NOTE | 2020-11-11 00:30 | NUR ---
Residual 15 mL. Glucerna 1.2 rate increased 20 mL/hr.
[2020-11-11] MEDS: PIPERACILLIN/TAZO 2.25G/DEX-IS 50 ML IV SCH ×5 (00:45→23:53)
[2020-11-11] MEDS: IPRATROPIUM/ALBUTEROL SULFATE 3 ML AMPUL.NEB (DUONEB) INH SCH ×5 (04:02→20:24)
[2020-11-11] MEDS: LEVOTHYROXINE SODIUM 0.075 MG TABLET PO SCH (06:29)
[2020-11-11] MEDS: METOCLOPRAMIDE HCL 10 MG/2 ML VIAL IVP SCH ×3 (06:32→21:17)
--- NOTE | 2020-11-11 06:55 | NUR ---
OPENING NOTE: REPORT RC'VD AT BEDSIDE FROM NOC RN, ALL CARES RC'VD. ALL SAFETY PRECAUTIONS IN PLACE.
[2020-11-11] MEDS: MORPHINE SULFATE IN 0.9 % NACL 100 ML IV PRN (07:06)
--- NOTE | 2020-11-11 07:10 | NUR ---
Pt report given to oncoming RN. Pt resting quietly, VSS, NAD.
--- NOTE | 2020-11-11 07:14 | NUR ---
DR. MCCALL: MD AT BEDSIDE, VERBAL REPORT GIVEN.
[2020-11-11] MEDS: BUDESONIDE 0.5 MG/2 ML AMPUL.NEB INH SCH ×2 (07:49→20:25)
[2020-11-11] MEDS: HEPARIN SODIUM,PORCINE 5,000 UNITS/ML VIAL SUBCUT SCH ×2 (08:11→21:20)
[2020-11-11] MEDS: PANTOPRAZOLE SODIUM 40 MG/VIAL (PROTONIX) IVP SCH ×2 (08:11→21:17)
[2020-11-11] MEDS: NEPHROVITE, (FOLIC ACID/VITAMIN B COMP W-C 1 TAB) NG SCH (08:12)
[2020-11-11] MEDS: methylPREDNISolone SOD SUCC 40 MG/ML VIAL IVP SCH ×2 (08:12→21:17)
--- NOTE | 2020-11-11 08:16 | NUR ---
DR. PARMAR: MD AT BEDSIDE, VERBAL REPORT GIVEN.
[2020-11-11] MEDS: MIDAZOLAM IN NACL,ISO-OSMOT/PF 100 ML IV PRN (08:41)
--- NOTE | 2020-11-11 09:51 | NUR ---
Dr. Villar: MD at bedside, verbal report given. No new orders at this time, will continue with current treatment plan.
--- NOTE | 2020-11-11 10:10 | NUR ---
DR. SCHMIDT: MD AT BEDSIDE, VERBAL REPORT GIVEN, NO NEW ORDERS AT THIS TIME.
--- NOTE | 2020-11-11 11:14 | NUR ---
RN ROUNDS: PATIENT REPOSITIONED, LINES CHANGED WITH NEW GOWN APPLIED. ALL SAFETY PRECAUTIONS IN PLACE, BED LOW AND LOCKED. NEEDS MET AT THIS TIME. PATIENT REMAINS ON VENTILATOR WITH SEDATION.
--- NOTE | 2020-11-11 11:22 | NUR ---
Dietary: At bedside, verbal report given. No new recommendations at this time.
--- NOTE | 2020-11-11 12:46 | NUR ---
Nutrition F/U Admitting Diagnosis: Right Hip Fracture Medical History Comment: Pt w/: S/P Mechanical fall, Heavy use of ETOH recently elevated blood alcohol of 165, COPD, Hypothyroidism, Mild Leukocytosis, Anemia, Acute on chronic hypoxic respiratory failure per MD notes. PMH: COPD, Hypothyroidism. 11/11: MD notes: Sepsis SARS-CoV-2 Ag Rapid 11/01 Negative Subjective Information: Pt was seen in ICU, EN infusing at 10ml/hr. RD s/w RN who reported that pt has not been tolerating EN for the past few days and MD ordered to lower down EN infusion rate to 10ml/hr. EN tolerance to be observed. RD rec to slowly increase EN rate to new goal rate of 45ml once able. Per EMR, pt is admitted for right hip fracture w/ acute on chronic respiratory failure, pt is being followed by ortho and note states that pt is not stable for surgery. Per nephrology notes, renal function remains stable. Abdomen is distended w/ hypoactive bowel sounds. Last BM 11/10 x1. Shay scale: 11. Pt was seen by administrative services specialist on 11/07, no pressure injury noted. Per RN notes, 2+ pitting edema to BLE and left arm. EN rate: 10ml (since 11/11 1999); GRV: 15ml 11/11. Current Diet Order/Nutrition Support: Glucerna 1.2 at 60ml/hr, FWF 200ml Q6H via GT Pertinent Medications: Synthroid, NephroviteInsulin, Solu-medrol, Heparin, reglan, Protonix IV. Pertinent Labs 11/10: Na 144WNL, K 4.2 WNL, BG 118H, POC BG 108H, BUN 53H, Cre 1.07WNL, WBC 13.9H Height: 5 feet 9.00 inches Weight: 127 pounds/ 57.548998 kilograms. New weight: 116#/ 52.8kg (11/10) Body Mass Index: 18.75 kg/m2. New BMI: 17.2 kg/m2. (Pt is underweight) NEW Estimated Energy Expenditure (kcals/day) 1354 kcal/day (PSU 2002b for vent) Estimated Protein Required (g/day) 73-110gm/day (1-1.5 gm/kg IBW for wt gain promotion, wound healing) NEW Estimated Fluid Required (l/day) Per MD (ARF) Problem/Etiology/Signs/Symptoms Inadequate oral intake r/t respiratory distress AEB NPO status and pt is on venti mask. 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 (*modified) Altered nutrition related labs r/t endocrine and renal dysfunction AEB elevated POC BG, BUN, Cre labs. (*ongoing) Expected Outcomes/Goals Monitor EN tolerance and intake w/ goal of pt meeting more than 75% of estimated nutritional needs, labs trending WNL, normal GI function, skin integrity/wt maintenance. Dietitian Recommendations *Recommend: continue EN support. Slowly increase EN infusion rate to new goal of 45ml/hr. *Recommend: Glucerna 1.2 at 45ml/hr (new goal), FWF 200ml Q6H per physician via NGT Provides: 1296 kcal, 65gm protein and 1669ml fluids daily. Meets: 96% of lower end of estimated calorie needs and 89% of lower end of estimated protein needs. Follow Up High Risk: F/U in 2-3days
--- NOTE | 2020-11-11 12:58 | NUR ---
Dietitian Recommendations *Recommend: continue EN support. Slowly increase EN infusion rate to new goal of 45ml/hr. *Recommend: Glucerna 1.2 at 45ml/hr (new goal), FWF 200ml Q6H per physician via NGT Provides: 1296 kcal, 65gm protein and 1669ml fluids daily. Meets: 96% of lower end of estimated calorie needs and 89% of lower end of estimated protein needs. Please see nutrition f/u note for details. HASMUKH, RD
[2020-11-11] MEDS: METOPROLOL TARTRATE 50 MG TABLET PO SCH ×2 (14:24→21:00)
--- NOTE | 2020-11-11 14:24 | NUR ---
HELD LOPRESSOR R/T LOW BP
--- NOTE | 2020-11-11 15:28 | NUR ---
Pat Marte Friend Caregiver called from [facility], update given and all questions answered.
--- NOTE | 2020-11-11 15:32 | NUR ---
Pat Marte Cell Phone
[2020-11-11] MEDS: INSULIN REGULAR, HUMAN 100 UNITS/ML, 10 ML VIAL (humuLIN R) SUBCUT PRN (17:15)
--- NOTE | 2020-11-11 18:14 | NUR ---
Friend: Pat (Friend) at bedside, per Pat patient has no living relatives, never and has no children of his own. She states she assisted him over the years at the [place] [facility] home where he lived. Will endorse information to physician.
--- NOTE | 2020-11-11 18:41 | NUR ---
RN ROUNDS: FRIEND REMAINS AT BEDSIDE, REPOSITIONED PATIENT, BED LOW AND ALL SAFETY PRECAUTIONS IN PLACE. WILL ENDORSE CARES TO NOC NURSE.
--- NOTE | 2020-11-11 19:02 | NUR ---
CLOSING NOTE: REPORT GIVEN TO NOC NURSE, ALL CARES ENDORSED.
--- NOTE | 2020-11-11 19:15 | NUR ---
OPENING NOTE: REPORT RECEIVED FROM RN USING SBAR REPORTING. ALL CARE ASSUMED.
[2020-11-12] VITALS (32 sets, daily range): BP systolic 10–166
[2020-11-12] MEDS: IPRATROPIUM/ALBUTEROL SULFATE 3 ML AMPUL.NEB (DUONEB) INH SCH ×7 (00:13→23:36)
[2020-11-12] MEDS: MORPHINE SULFATE IN 0.9 % NACL 100 ML IV PRN (04:16)
[2020-11-12] MEDS: MIDAZOLAM IN NACL,ISO-OSMOT/PF 100 ML IV PRN (04:17)
[2020-11-12] MEDS: METOCLOPRAMIDE HCL 10 MG/2 ML VIAL IVP SCH ×3 (06:27→21:14)
[2020-11-12] MEDS: PIPERACILLIN/TAZO 2.25G/DEX-IS 50 ML IV SCH ×3 (06:27→18:29)
[2020-11-12] MEDS: LEVOTHYROXINE SODIUM 0.075 MG TABLET PO SCH (06:28)
[2020-11-12] MEDS: BUDESONIDE 0.5 MG/2 ML AMPUL.NEB INH SCH ×2 (07:14→19:55)
--- NOTE | 2020-11-12 07:23 | NUR ---
Opening Note Received plan of care via sbar from RN.
--- NOTE | 2020-11-12 07:45 | NUR ---
RT NOTES FIO2 to 0.40 per titration order. Will monitor pt. Rn made aware. @ 7835 pt. cont. to maintain sat. in the high 90s. Will start SBT once pt. is awake.
[2020-11-12] MEDS: METOPROLOL TARTRATE 50 MG TABLET PO SCH ×3 (08:36→21:00)
--- NOTE | 2020-11-12 08:40 | NUR ---
RT NOTES Pt is awake, not really following commands, just shaking head. Per RN ok to start SBT order. Vent to CPAP 5 PS 10. @0849 Spont. R.R 12, Spon. Vt low to mid 300s, Sat. high 80s to low 90s, H.R low to mid 70s. No signs of distress noted. Exh. CO2 low to mid 30s. Will cont. to monitor pt.
[2020-11-12 08:55] LABS: ANION GAP 7 (5-15); CALCIUM 8.4 mg/dL (8.4-11.0); CHLORIDE 111 mmol/L (98-107); CREATININE 1.08 mg/dL (0.55-1.30); GLUCOSE 135 mg/dL (70-99); SODIUM SERUM 143 mmol/L (136-145); UREA NITROGEN, BLOOD 43 mg/dL (8-21)
[2020-11-12 09:01] LABS: BASOPHILS % (AUTO) 0.1 % (0.0-2.0); EOSINOPHILS # (AUTO) 0.2 K/uL (0.0-0.4); HEMATOCRIT 38.9 % (36-54); HEMOGLOBIN 12.7 g/dL (14.0-18.0); LYMPHOCYTES # (AUTO) 0.6 K/uL (1.0-5.5); LYMPHOCYTES % (AUTO) 3.4 % (20.5-51.5); MEAN CORPUSCULAR HEMOGLOBIN 30 pg (27-31); MEAN CORPUSCULAR HGB CONC 33 % (32-36); MEAN CORPUSCULAR VOLUME 92 fL (79.0-98.0); MONOCYTES # (AUTO) 0.9 K/uL (0.0-1.0); MONOCYTES % (AUTO) 5.5 % (1.7-9.3); NEUTROPHILS # (AUTO) 15.3 K/uL (1.8-7.7); PLATELET COUNT (AUTO) 206 K/uL (130-430); RED BLOOD CELL COUNT(AUTO) 4.24 MIL/uL (4.2-6.2); RED CELL DISTRIBUTION WIDTH 15.2 % (9.0-15.0)
[2020-11-12] MEDS: PANTOPRAZOLE SODIUM 40 MG/VIAL (PROTONIX) IVP SCH ×2 (09:08→21:11)
[2020-11-12] MEDS: methylPREDNISolone SOD SUCC 40 MG/ML VIAL IVP SCH ×2 (09:08→21:11)
[2020-11-12] MEDS: NEPHROVITE, (FOLIC ACID/VITAMIN B COMP W-C 1 TAB) NG SCH (09:09)
[2020-11-12] MEDS: HEPARIN SODIUM,PORCINE 5,000 UNITS/ML VIAL SUBCUT SCH ×2 (09:23→21:11)
--- NOTE | 2020-11-12 12:40 | NUR ---
RT NOTES Per Rn, Dr Holly said to keep pt on CPAP unless fatigued. to access pt.
--- NOTE | 2020-11-12 17:43 | NUR ---
RT NOTES Per Dr Holly's order via [employer] [employer], Vent back to AC.
--- NOTE | 2020-11-12 17:46 | NUR ---
Called Dr. Holly and provided update on cpap trial. Received orders to place patient back to full support, AC 18, TV 450, 40% FIO2, Peep 5. Cpap trial at 8AM for 1 hour followed by ABG and chest xray.
--- NOTE | 2020-11-12 19:20 | NUR ---
OPENING NOTE: REPORT RECEIVED FROM RN USING SBAR REPORTING. ALL CARE ASSUMED.
[2020-11-13] VITALS (27 sets, daily range): BP systolic 89–203
[2020-11-13] MEDS: PIPERACILLIN/TAZO 2.25G/DEX-IS 50 ML IV SCH ×4 (00:35→17:18)
[2020-11-13] MEDS: IPRATROPIUM/ALBUTEROL SULFATE 3 ML AMPUL.NEB (DUONEB) INH SCH ×6 (04:11→23:26)
[2020-11-13 06:28] LABS: HEMATOCRIT 34.9 % (36-54); HEMOGLOBIN 11.2 g/dL (14.0-18.0); LYMPHOCYTES # (AUTO) 0.4 K/uL (1.0-5.5); LYMPHOCYTES % (AUTO) 2.3 % (20.5-51.5); MEAN CORPUSCULAR HEMOGLOBIN 30 pg (27-31); MEAN CORPUSCULAR HGB CONC 32 % (32-36); MEAN CORPUSCULAR VOLUME 93 fL (79.0-98.0); MONOCYTES # (AUTO) 0.9 K/uL (0.0-1.0); MONOCYTES % (AUTO) 5.9 % (1.7-9.3); NEUTROPHILS # (AUTO) 14.1 K/uL (1.8-7.7); NEUTROPHILS % (AUTO) 91.8 % (40.0-70.0); PLATELET COUNT (AUTO) 180 K/uL (130-430); RED BLOOD CELL COUNT(AUTO) 3.73 MIL/uL (4.2-6.2); WHITE BLOOD COUNT (AUTO) 15.4 K/uL (4.8-10.8)
[2020-11-13] MEDS: METOCLOPRAMIDE HCL 10 MG/2 ML VIAL IVP SCH ×3 (06:34→21:10)
[2020-11-13] MEDS: LEVOTHYROXINE SODIUM 0.075 MG TABLET PO SCH (06:35)
--- NOTE | 2020-11-13 06:35 | NUR ---
RT NOTES Per NOC shift RN, Dr Holly wants CPAP to be initiated now. Rn turned sedation off. ABG to be drawn 1 hour post CPAP trial. No adverse reactions noted. Will monitor pt.
[2020-11-13 06:45] LABS: ANION GAP 6 (5-15); CALCIUM 8.2 mg/dL (8.4-11.0); CHLORIDE 112 mmol/L (98-107); CREATININE 1.16 mg/dL (0.55-1.30); GLUCOSE 124 mg/dL (70-99); POTASSIUM 5.1 mmol/L (3.5-5.1); SODIUM SERUM 145 mmol/L (136-145); UREA NITROGEN, BLOOD 46 mg/dL (8-21)
--- NOTE | 2020-11-13 06:45 | NUR ---
DR MCCALL: DR MCCALL CALLED AND GAVE ORDERS TO START ON BIPAP EARLY AND ABG'S AN HOUR AFTER WITH PLANS ON EXTUBATION LATER TODAY.
--- NOTE | 2020-11-13 07:30 | NUR ---
Opening Note Received plan of care via sbar from endorsing RN.
[2020-11-13] MEDS: BUDESONIDE 0.5 MG/2 ML AMPUL.NEB INH SCH ×2 (07:56→19:30)
--- NOTE | 2020-11-13 08:15 | NUR ---
Called Dr. Holly and provided update on ABG. considering extubation post review of chest x ray.
--- NOTE | 2020-11-13 08:42 | NUR ---
Dr. Pugh at bedside. Provided patient update. Received orders for IVF NS 50cc/hr and to start water flushes 200cc Q/6. Titrate up on tubefeeding as goal indicated and as tolerated.
[2020-11-13] MEDS ORDERED: NACL 0.9% 1,000 ML IV SCH (08:45)
--- NOTE | 2020-11-13 09:12 | NUR ---
Called Dr. Holly and reported chest xray dictation. Received orders to extubate patient and place on NC as to titrate as tolerated.
[2020-11-13] MEDS: HEPARIN SODIUM,PORCINE 5,000 UNITS/ML VIAL SUBCUT SCH ×2 (09:15→20:12)
[2020-11-13] MEDS: NEPHROVITE, (FOLIC ACID/VITAMIN B COMP W-C 1 TAB) NG SCH (09:15)
[2020-11-13] MEDS: methylPREDNISolone SOD SUCC 40 MG/ML VIAL IVP SCH ×2 (09:15→20:05)
[2020-11-13] MEDS: PANTOPRAZOLE SODIUM 40 MG/VIAL (PROTONIX) IVP SCH ×2 (09:15→20:05)
[2020-11-13] MEDS: METOPROLOL TARTRATE 50 MG TABLET PO SCH ×4 (09:16→20:26)
--- NOTE | 2020-11-13 09:20 | NUR ---
RT NOTES Pt was extubated and placed on 4L NC. No distress noted, but saturation only in mid 80s. Will give HHN tx for bronchodilation therapy.
[2020-11-13] MEDS: ALBUTEROL SULFATE 0.083% 2.5 MG/3 ML VIAL.NEB INH PRN (09:53)
[2020-11-13] MEDS: IPRATROPIUM BROM 0.5 MG/2.5 ML VIAL.NEB (ATROVENT) INH PRN (09:53)
--- NOTE | 2020-11-13 10:39 | NUR ---
Received call from Dr. Espinal and provided patient update. Discussed swelling in left arm. Received order to complete a doppler study on arm.
[2020-11-13] MEDS: D5NS 1,000 ML IV SCH (11:10)
--- NOTE | 2020-11-13 11:10 | NUR ---
RT NOTES Placed pt on 50L 50% HFNC, titrated to 40%, current saturation 88-91% h.R 85 R.R 12. No distress noted. Will monitor pt.
--- NOTE | 2020-11-13 13:55 | NUR ---
RT NOTES Pt. appears to be resting comfortably at this time. Saturation 93%.
[2020-11-13] MEDS ORDERED: NALOXONE HCL 0.4 MG/ML AMP (NARCAN) IVP PRN (14:00)
--- NOTE | 2020-11-13 14:02 | NUR ---
Called Dr. Levi and provided patient update. Provided FLACC and reported elevated blood pressure ranging with sbp from 170 to 190. Received order for 1 mg morphine IVP Q6 PRN for pain 7-10 and Labetolol 10 mg IVP Q6 for SBP greater than 170.
--- NOTE | 2020-11-13 14:03 | NUR ---
HIGH ALERT NOTE: Called Dr. Levi back at [phone] identified within the medical roster to verify physician authenticity.
[2020-11-13] MEDS: MORPHINE 2 MG/ML INJ. SYRINGE IVP PRN (14:16)
[2020-11-13] MEDS: LABETALOL 100 MG/ 20ML VIAL IVP PRN ×2 (14:18→22:37)
--- NOTE | 2020-11-13 16:28 | NUR ---
CONSULT CARDIO. CONSULTING MD: DR. MCCANN PERSON NOTIFIED: HARRIS DIALED: [phone] ORDERED BY: DR. SCHMIDT
[2020-11-13] MEDS ORDERED: LABETALOL 100 MG/ 20ML VIAL IVP ONE (16:30)
--- NOTE | 2020-11-13 16:34 | NUR ---
Called Dr. Levi and reported blood pressure of 207/98. Received order for Labetolol 20mg IVP once and consult for Cardiology Farzana.
--- NOTE | 2020-11-13 16:35 | NUR ---
HIGH ALERT NOTE: Called Dr. Levi back at [phone] identified within the medical roster to verify physician authenticity.
--- NOTE | 2020-11-13 16:35 | NUR ---
Received call from Dr. Yanes. Reported elevated blood pressure. Received orders for Labetolol 20 mg IVP Q4 and hold if SBP < 140. In addition, received order for hydralizine 10 mg IVP Q4 PRN for SBP > 170.
--- NOTE | 2020-11-13 16:36 | NUR ---
HIGH ALERT NOTE: Called Dr. Yanes back at [phone] identified within the medical roster to verify physician authenticity.
[2020-11-13] MEDS: hydrALAZINE HCL 20 MG/ML VIAL IVP PRN (16:56)
[2020-11-13] MEDS ORDERED: LORazepam 2 MG/ML VIAL IM ONE (18:30)
--- NOTE | 2020-11-13 18:31 | NUR ---
Called Dr. Yanes and provided patient update. Received orders for Ativan 0.5 IVP once for agitation and Clonidine Patch 0.2 TD weekly.
--- NOTE | 2020-11-13 18:34 | NUR ---
HIGH ALERT NOTE: Called Dr. Yanes back at [phone] identified within the medical roster to verify physician authenticity.
--- NOTE | 2020-11-13 18:37 | NUR ---
PAGED DR. MCCANN ORDERS [phone] SPOKE WITH LINDSAY
--- NOTE | 2020-11-13 18:50 | NUR ---
Called Dr. Yanes and provided update on patient and agitation. Received orders for Ativan IVP q6 0.5 prn for agitation.
--- NOTE | 2020-11-13 19:06 | NUR ---
HIGH ALERT NOTE: Called Dr. Yanes back at [phone] identified within the medical roster to verify physician authenticity.
[2020-11-13] MEDS ORDERED: cloNIDine HCL 0.2 MG/24 HR PATCH.TDWK TD ONE (19:15)
--- NOTE | 2020-11-13 19:15 | NUR ---
OPENING NOTE: REPORT RECEIVED FROM RN USING SBAR REPORTING. ALL CARE ASSUMED.
[2020-11-13] MEDS: LABETALOL 100 MG/ 20ML VIAL IVP SCH (20:09)
[2020-11-13] MEDS: LORazepam 2 MG/ML VIAL IM PRN ×2 (20:12→21:10)
--- NOTE | 2020-11-13 21:29 | NUR ---
PAGED DR. ARCHULETA ORDERS [phone] SPOKE WITH KORTNEY
[2020-11-13] MEDS ORDERED: OLANZapine IntraMuscular 10 MG VIAL (FOR I.M. INJECTION ONLY) IM ONE (22:00)
--- NOTE | 2020-11-13 22:00 | NUR ---
DR MCCALL: DR MCCALL UPDATED ON PTS STATUS. NEW ORDERS ACKNOWLEDGED AND CARRIED OUT.
[2020-11-13] MEDS: DEXMEDETOMIDINE HCL 200 MCG in NS 48 ML IV PRN (23:35)
[2020-11-14] VITALS (30 sets, daily range): BP systolic 98–191
[2020-11-14] MEDS: PIPERACILLIN/TAZO 2.25G/DEX-IS 50 ML IV SCH ×3 (00:29→11:01)
[2020-11-14] MEDS: LABETALOL 100 MG/ 20ML VIAL IVP SCH ×6 (00:32→20:51)
[2020-11-14] MEDS: IPRATROPIUM/ALBUTEROL SULFATE 3 ML AMPUL.NEB (DUONEB) INH SCH ×6 (03:10→23:40)
[2020-11-14] MEDS: LORazepam 2 MG/ML VIAL IM PRN ×2 (04:25→09:39)
[2020-11-14] MEDS: MORPHINE 2 MG/ML INJ. SYRINGE IVP PRN ×2 (06:16→10:57)
[2020-11-14] MEDS: D5NS 1,000 ML IV SCH (06:17)
[2020-11-14] MEDS: METOCLOPRAMIDE HCL 10 MG/2 ML VIAL IVP SCH ×3 (06:17→21:06)
[2020-11-14] MEDS: LEVOTHYROXINE SODIUM 0.075 MG TABLET PO SCH (06:18)
[2020-11-14 07:20] LABS: BASOPHILS % (AUTO) 0.2 % (0.0-2.0); HEMATOCRIT 33.9 % (36-54); HEMOGLOBIN 11.4 g/dL (14.0-18.0); LYMPHOCYTES # (AUTO) 0.5 K/uL (1.0-5.5); LYMPHOCYTES % (AUTO) 3.1 % (20.5-51.5); MEAN CORPUSCULAR HEMOGLOBIN 31 pg (27-31); MEAN CORPUSCULAR HGB CONC 34 % (32-36); MEAN CORPUSCULAR VOLUME 91 fL (79.0-98.0); MONOCYTES # (AUTO) 1.2 K/uL (0.0-1.0); MONOCYTES % (AUTO) 7.6 % (1.7-9.3); NEUTROPHILS # (AUTO) 14.3 K/uL (1.8-7.7); NEUTROPHILS % (AUTO) 89.1 % (40.0-70.0); PLATELET COUNT (AUTO) 200 K/uL (130-430); RED BLOOD CELL COUNT(AUTO) 3.72 MIL/uL (4.2-6.2); RED CELL DISTRIBUTION WIDTH 14.9 % (9.0-15.0); WHITE BLOOD COUNT (AUTO) 16.1 K/uL (4.8-10.8)
[2020-11-14 07:21] LABS: ANION GAP 10 (5-15); CHLORIDE 109 mmol/L (98-107); CREATININE 0.98 mg/dL (0.55-1.30); GLUCOSE 130 mg/dL (70-99); SODIUM SERUM 144 mmol/L (136-145); UREA NITROGEN, BLOOD 40 mg/dL (8-21)
--- NOTE | 2020-11-14 07:30 | NUR ---
OPENING NOTE: REPORT RECEIVED FROM RN USING SBAR REPORTING. ALL CARE ASSUMED.
[2020-11-14] MEDS: BUDESONIDE 0.5 MG/2 ML AMPUL.NEB INH SCH ×2 (07:49→19:35)
[2020-11-14] MEDS: PANTOPRAZOLE SODIUM 40 MG/VIAL (PROTONIX) IVP SCH ×2 (08:19→21:06)
[2020-11-14] MEDS: methylPREDNISolone SOD SUCC 40 MG/ML VIAL IVP SCH ×2 (08:19→21:06)
[2020-11-14] MEDS: HEPARIN SODIUM,PORCINE 5,000 UNITS/ML VIAL SUBCUT SCH ×2 (08:20→20:53)
[2020-11-14] MEDS: NEPHROVITE, (FOLIC ACID/VITAMIN B COMP W-C 1 TAB) NG SCH (08:20)
[2020-11-14] MEDS: METOPROLOL TARTRATE 50 MG TABLET PO SCH ×3 (08:20→20:52)
--- NOTE | 2020-11-14 08:26 | NUR ---
DR. SCHMIDT: MD AT BEDSIDE, VERBAL REPORT GIVEN.
[2020-11-14] MEDS: DEXMEDETOMIDINE HCL 200 MCG in NS 48 ML IV PRN ×2 (08:29→13:49)
--- NOTE | 2020-11-14 09:17 | NUR ---
DR. MCCANN: MD AT BEDSIDE, VERBAL REPORT GIVEN.
--- NOTE | 2020-11-14 09:40 | NUR ---
ATIVAN: PRN GIVEN FOR AGITATION ORDERED. PATIENT ATTEMPTING TO REMOVE MEDICAL DEVICES, TUGGING AT WRIST RESTRAINTS AND HITTING ARM INTO SIDE RAIL.
--- NOTE | 2020-11-14 10:04 | NUR ---
BLOOD TINGED URINE: URINE NOTED TO BE BLOOD TINGED, CHARGE NOTIFIED, PAGED.
[2020-11-14] MEDS: hydrALAZINE HCL 20 MG/ML VIAL IVP PRN (10:55)
--- NOTE | 2020-11-14 10:56 | NUR ---
MORPHINE / PAIN: MORPHINE GIVEN FOR PAIN, PATIENT MOANING, TUGGING AT WRIST RESTRAINTS, KICKING LEGS. UNABLE TO CALM PATIENT.
--- NOTE | 2020-11-14 10:58 | NUR ---
BLOOD PRESSURE 189/89 PRN HYDRALIZINE GIVEN PER ORDER.
--- NOTE | 2020-11-14 11:14 | NUR ---
PAGED RT TO BEDSIDE: PATIENT REMAINS ON HIGH FLOW AT 50%, OXYGEN SATURATION READING 83% ON MONITOR, RT INCREASING HIGH FLOW, PATIENT REMAINS CONFUSED, UNABLE TO ASSESS ORIENTATION, PT CONTINUES WITH KICKING LEGS AND HITTING ARMS ON SIDE RAILS, RESTRAINTS REMAIN IN PLACE.
--- NOTE | 2020-11-14 11:31 | NUR ---
DR STEFANY NEAL: ÁNGEL ALVAREZ PENDING RETURN CALL.
--- NOTE | 2020-11-14 11:43 | NUR ---
SPOKE WITH DR. MCCALL: BIPAP ORDERED FOR PATIENT BY DR. MCCALL, ORDER TRANSCRIBED.
--- NOTE | 2020-11-14 11:46 | NUR ---
BIPAP: RT AT BEDSIDE PLACING BIPAP ONTO PATIENT.
--- NOTE | 2020-11-14 11:47 | NUR ---
DR. SCHMIDT: AWARE OF BLOOD TINGED URINE. NO NEW ORDERS.
--- NOTE | 2020-11-14 11:51 | NUR ---
BS: BS 118, NO COVERAGE WARRANTED.
--- NOTE | 2020-11-14 12:11 | NUR ---
ETOMIDATE: 20MG GIVEN PER VERBAL ORDER FROM DR. ARRINGTON FOR INTUBATION
--- NOTE | 2020-11-14 12:11 | NUR ---
VEC: 5MG VEC GIVEN IVP PER VERBAL ORDER BY DR. ARRINGTON FOR INTUBATION.
--- NOTE | 2020-11-14 12:13 | NUR ---
INTUBATED: PATIENT INTUBATED BY DR. MURPHY MOY MD, 7.5 ETT 24CM AT THE LIP, PLACED ONTO VENTILATOR, PREVIOUS SETTINGS IN PLACE, PENDING ROUNDS FROM DR. MCCALL.
[2020-11-14] MEDS: metroNIDAZOLE 250 mg/NS 50 ML IV SCH ×2 (13:48→21:07)
[2020-11-14] MEDS ORDERED: ETOMIDATE 20 MG/ 10 ML VIAL (AMIDATE) IVP ONE (13:58)
[2020-11-14] MEDS ORDERED: VECURONIUM BROMIDE 10 MG/VIAL (NORCURON) IVP ONE (13:58)
--- NOTE | 2020-11-14 14:35 | NUR ---
WOUND RE-EVALUATION: Patient received in a [place] Bed with an IsoFlex CONY mattress with low air-loss therapy, awake, nonverbal, nonresponsive to verbal commands, and intubated with ETT to ventilator. Patient is unable to turn in bed independently. Shay Score is an 11. Past Medical History: COPD, Hypothyroidism. Patient was brought in by ambulance after sustaining a mechanical fall from his bed at his residence, patient was diagnosed with a right hip fracture during the admission process. Microbiology: Blood culture results positive for Klebsiella pneumoniae. Endotracheal sputum culture results in progress. Intrinsic factors that delay wound healing: COPD, severe Hypoalbuminemia. Extrinsic factors that delay wound healing: Immobility. Wound Assessment: 1. Sacral/buttocks areas: Blanchable redness, present on admission. No odor, no drainage. Brown vertical linear discoloration measuring 1.2 cm x 0.3 cm present. 2. Intergluteal Sulcus: Scar tissue, present on admission. Recommend continue: Cleanse involved areas with mild soap and water. Pat dry. Apply moisture barrier cream to involved areas. Cover sites with Sacral foam dressing. Perform site care daily, and as needed for dressing soiling or dislodgment. 3. Right Buttock near the Ischial Tuberosity: Small area of ecchymosis, present on admission. Resolved. Recommend continue: No dressing needed. Assess site qshift. 4. Right Posterior Lateral Hip and Buttock: Scattered areas of ecchymosis, present on admission. Improving. Recommend continue: No dressings needed. Continue to monitor sites every shift. 5. Right Proximal [place]: Skin tear, present on admission. Open area has 90% white tissue, 10% red tissue, less than 5% dark discolored skin. No odor, no drainage. Periwound intact. Surrounding tissue has ecchymosis. Skin tear measures 1.1 cm x 1.2 cm. Recommend continue: Cleanse skin tear with normal saline. Apply sure prep to perimeter of skin tear. Apply Hydrogel to skin tear bed. Cover with foam dressing. Perform skin tear care daily, and as needed for dressing soiling or dislodgment. 6. Left [place]: Skin tear, present on admission. Open area has 95% brown tissue, 5% red tissue. No odor, scant sanguineous drainage. Periwound intact. Surrounding tissue has ecchymosis. Skin tear measures 0.3 cm x 1.5 cm. Recommend continue: Cleanse skin tear with normal saline. Apply sure prep to perimeter of skin tear. Apply Hydrogel to skin tear bed. Cover with foam dressing. Perform skin tear care daily, and as needed for dressing soiling or dislodgment. 7. Right Lateral Foot: Blanchable redness, present on admission. Recommend continue: Elevate, offload and float bilateral heels and feet with 1 pillow lengthwise under each extremity at all times. Ensure that feet float freely and do not touch bed or other surfaces at any time. 8. Right Posterior Lateral Forearm: Skin tear, present on admission. Open area has 5% dark discolored skin, 5% pink tissue, 90% yellow tissue. No odor, no drainage. Periwound intact. Surrounding tissue has ecchymosis. Skin tear measures 1.4 cm x 1.4 cm. Recommend continue: Cleanse skin tear with normal saline. Apply sure prep to perimeter of skin tear. Apply Hydrogel to skin tear bed. Cover with foam dressing. Perform skin tear care daily, and as needed for dressing soiling or dislodgment. 9. Left Dorsal Wrist: Skin tear, present on admission. Site has 100% black scab. No odor, no drainage. Periwound intact. Surrounding tissue and extremity have ecchymosis. Skin tear measures 0.4 cm x 0.8 cm. Recommend continue: Cover with foam dressing for protection. Perform site care daily, and as needed for dressing soiling or dislodgment. 10. Right Dorsal Hand: Skin tear, present on admission. Open area has 100% dull pink tissue. No odor, no drainage. Periwound intact. Surrounding tissue has ecchymosis. Skin tear measures 0.9 cm x 0.5 cm. Recommend continue: Cleanse skin tear with normal saline. Apply sure prep to perimeter of skin tear. Apply Hydrogel to skin tear bed. Cover with foam dressing. Perform skin tear care daily, and as needed for dressing soiling or dislodgment. 11. Right Dorsal Hand, Lateral to Site 10: Skin tear, present on admission. Open area has 10% red tissue, 90% white tissue. No odor, no drainage. Periwound intact. Surrounding tissue has ecchymosis. Skin tear measures 3.0 cm x 2.6 cm. Recommend continue: Cleanse skin tear with normal saline. Apply moisture barrier cream to skin tear. Cover with foam dressing. Perform skin tear care daily, and as needed for dressing soiling or dislodgment. 12. Left Heel: Blanchable redness. 13. Right Heel: Blanchable redness. Recommend continue: Elevate, offload and float bilateral heels with one pillow lengthwise under each extremity at all times. Also recommend continue: Reposition patient [id number] only every 2 hours with pillow support and off-load pressure areas with pillows for pressure re-distribution. Offload, elevate and float bilateral heels with 1 pillow at all times. Perform skin care and monitor skin integrity Q shift. Use moisture barrier cream on buttocks and other moisture susceptible areas QID and as needed for soiling. Maintain patient on low air-loss therapy.
--- NOTE | 2020-11-14 14:46 | NUR ---
DR. MCCALL: MD AT BEDSIDE, VERBAL REPORT GIVEN, NEW ORDERS PLACED FOR NEW SEDATION.
--- NOTE | 2020-11-14 16:30 | NUR ---
FRIEND: PATIENTS FRIEND AT BEDSIDE, VERBAL UPDATE GIVEN.
[2020-11-14] MEDS: PROPOFOL DRIP 100 ML IV PRN ×2 (16:54→20:44)
[2020-11-14] MEDS: NOREPINEPHRINE BITARTRATE 8 MG in D5W 242 ML IV PRN (16:55)
--- NOTE | 2020-11-14 17:01 | NUR ---
Nutrition F/U Admitting Diagnosis: Right Hip Fracture Medical History Comment: Pt w/: S/P Mechanical fall, Heavy use of ETOH recently elevated blood alcohol of 165, COPD, Hypothyroidism, Mild Leukocytosis, Anemia, Acute on chronic hypoxic respiratory failure per MD notes. PMH: COPD, Hypothyroidism. 11/11: MD notes: Sepsis Previous RD note: Pt was seen in ICU, EN infusing at 10ml/hr. RD s/w RN who reported that pt has not been tolerating EN for the past few days and MD ordered to lower down EN infusion rate to 10ml/hr. EN tolerance to be observed. RD rec to slowly increase EN rate to new goal rate of 45ml once able. Per EMR, pt is admitted for right hip fracture w/ acute on chronic respiratory failure, pt is being followed by ortho and note states that pt is not stable for surgery. Per nephrology notes, renal function remains stable. Abdomen is distended w/ hypoactive bowel sounds. Last BM 11/10 x1. Shay scale: 11. Pt was seen by cardiac rehabilitation specialist on 11/07, no pressure injury noted. Per RN notes, 2+ pitting edema to BLE and left arm. EN rate: 10ml (since 11/11 1999); GRV: 15ml 11/11. RD note (11/14/20): Per MD note today, pt extubated yesterday (11/13), pt on high flow oxygen and pt confused. Per pts primary RN, pt was re-intubated and put back on the vent. Pt is being kept NPO and tube feeding will resume tomorrow. Pt currently on D5% 1/2NS @ 50 mL/hr. Current Diet Order/Nutrition Support: Glucerna 1.2 at 60ml/hr, FWF 200ml Q6H via GT I/Os: (11/14) 110/0 ML Pertinent Medications: Synthroid, Nephrovite, Insulin, Solu-medrol, Heparin, reglan, Protonix IV, morphine Pertinent Labs: H/H: 11.4/33.9L, Cl; 109H, glucose: 130H, CA: 8L, SARS-CoV-2 Ag Rapid 11/01 Negative GI: soft non-distended ABD, active bowel sounds per nursing notes, Last BM: 11/14/20 per pts nurse Skin: Shay: 11, R knee erythema, L arm erythema, R hand skin tear, L leg wound Height: 5 feet 9.00 inches Weight: (11/14) (11/01/20) 127 pounds/ 57.240286 kilograms. (11/10) 116#/ 52.8kg BMI: (11/14) (11/01/20) 18.75 kg/m2. BMI (11/10): 17.2 kg/m2. (Pt is underweight) NEW Estimated Energy Expenditure (kcals/day) 1354 kcal/day (PSU 2003b for vent) Estimated Protein Required (g/day) 73-110gm/day (1-1.5 gm/kg IBW for wt gain promotion, wound healing) NEW Estimated Fluid Required (l/day) Per MD (ARF) Problem/Etiology/Signs/Symptoms 1) Inadequate oral intake r/t respiratory distress AEB NPO status and pt is on venti mask. 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 (*modified) 3) Altered nutrition related labs r/t endocrine and renal dysfunction AEB elevated POC BG, BUN, Cre labs. (*ongoing) Expected Outcomes/Goals Monitor EN tolerance and intake w/ goal of pt meeting more than 75% of estimated nutritional needs, labs trending WNL, normal GI function, skin integrity/wt maintenance. Dietitian Recommendations *Recommend: continue EN support. Slowly increase EN infusion rate to new goal of 45ml/hr. *Recommend: Glucerna 1.2 at 45ml/hr (new goal), FWF 200ml Q6H per physician via NGT Provides: 1296 kcal, 65gm protein and 1669ml fluids daily. Meets: 96% of lower end of estimated calorie needs and 89% of lower end of estimated protein needs. Follow Up High Risk: F/U in 2-3days KW RD Addendum: 06/18/21 at [address] Discussed current recommendations with pt's nurse via phone at 1807. JAMISON DALEY
--- NOTE | 2020-11-14 18:07 | NUR ---
RN ROUNDS: PATIENT REPOSITIONED, NEW LINENS APPLIED WITH NEW GOWN, RESTRAINTS REMOVED AT 1600. BED LOW AND LOCKED FOR SAFETY, PATIENT REMAINS ON VENTILATOR WITH NO ACUTE DISTRESS NOTED.
--- NOTE | 2020-11-14 19:40 | NUR ---
Opening note Received report and assumed care. Patient continues to have episodes of agitation without attempting to pull on ETT. Requires sedation with propofol, suction and repositioning. Vent settings AC 18 TV 450 FIO2 50% peep 5+. BELIA picc in place and patent. will continue to monitor.
--- NOTE | 2020-11-14 20:55 | NUR ---
Per Dr Holly ok to hold Heparin due to hematuria
[2020-11-14] MEDS: CEFEPIME 0.5 GM in D5W 50 ML IV SCH (21:03)
[2020-11-15] VITALS (30 sets, daily range): BP systolic 85–158
--- NOTE | 2020-11-15 00:30 | NUR ---
Continues with periods of agitation. Morphine drip started at this time 2 mg/h. patient has right hip fracture and agitation is likely to be related to discomfort. will continue to monitor.
[2020-11-15] MEDS: MORPHINE SULFATE IN 0.9 % NACL 100 ML IV PRN ×2 (00:33→14:24)
[2020-11-15] MEDS: LABETALOL 100 MG/ 20ML VIAL IVP SCH ×6 (01:00→21:00)
[2020-11-15] MEDS: PROPOFOL DRIP 100 ML IV PRN ×3 (01:48→14:25)
[2020-11-15] MEDS: D5NS 1,000 ML IV SCH ×2 (03:00→23:00)
--- NOTE | 2020-11-15 03:00 | NUR ---
levophed off as patient's blood pressure continues to increase. Need for vasopressor not indicated.
[2020-11-15] MEDS: IPRATROPIUM/ALBUTEROL SULFATE 3 ML AMPUL.NEB (DUONEB) INH SCH ×6 (03:14→23:15)
--- NOTE | 2020-11-15 04:14 | NUR ---
Morning care provided. Bed bath given; linen changed; CHG bath given.
[2020-11-15] MEDS: metroNIDAZOLE 250 mg/NS 50 ML IV SCH ×3 (06:30→21:17)
[2020-11-15] MEDS: METOCLOPRAMIDE HCL 10 MG/2 ML VIAL IVP SCH ×3 (06:31→21:17)
[2020-11-15 06:46] LABS: BASOPHILS % (AUTO) 0.1 % (0.0-2.0); HEMATOCRIT 35.5 % (36-54); HEMOGLOBIN 11.7 g/dL (14.0-18.0); LYMPHOCYTES # (AUTO) 0.3 K/uL (1.0-5.5); LYMPHOCYTES % (AUTO) 2.1 % (20.5-51.5); MEAN CORPUSCULAR HEMOGLOBIN 30 pg (27-31); MEAN CORPUSCULAR HGB CONC 33 % (32-36); MEAN CORPUSCULAR VOLUME 93 fL (79.0-98.0); MONOCYTES # (AUTO) 0.8 K/uL (0.0-1.0); MONOCYTES % (AUTO) 4.7 % (1.7-9.3); NEUTROPHILS # (AUTO) 14.8 K/uL (1.8-7.7); NEUTROPHILS % (AUTO) 93.1 % (40.0-70.0); PLATELET COUNT (AUTO) 189 K/uL (130-430); RED BLOOD CELL COUNT(AUTO) 3.84 MIL/uL (4.2-6.2); RED CELL DISTRIBUTION WIDTH 15.1 % (9.0-15.0); WHITE BLOOD COUNT (AUTO) 15.9 K/uL (4.8-10.8)
--- NOTE | 2020-11-15 06:56 | NUR ---
OPENING NOTE: REPORT RECEIVED FROM RN USING SBAR REPORTING. ALL CARE ASSUMED.
[2020-11-15 07:14] LABS: ANION GAP 11 (5-15); CALCIUM 8.1 mg/dL (8.4-11.0); CHLORIDE 111 mmol/L (98-107); CREATININE 0.88 mg/dL (0.55-1.30); GLUCOSE 148 mg/dL (70-99); POTASSIUM 4.1 mmol/L (3.5-5.1); SODIUM SERUM 144 mmol/L (136-145); UREA NITROGEN, BLOOD 36 mg/dL (8-21)
[2020-11-15] MEDS: BUDESONIDE 0.5 MG/2 ML AMPUL.NEB INH SCH ×2 (07:28→19:50)
[2020-11-15] MEDS: PANTOPRAZOLE SODIUM 40 MG/VIAL (PROTONIX) IVP SCH ×2 (08:22→21:14)
[2020-11-15] MEDS: methylPREDNISolone SOD SUCC 40 MG/ML VIAL IVP SCH ×2 (08:22→21:14)
[2020-11-15] MEDS: LEVOTHYROXINE SODIUM 0.075 MG TABLET PO SCH (08:22)
[2020-11-15] MEDS: NEPHROVITE, (FOLIC ACID/VITAMIN B COMP W-C 1 TAB) NG SCH (08:22)
[2020-11-15] MEDS: METOPROLOL TARTRATE 50 MG TABLET PO SCH ×3 (09:00→21:15)
[2020-11-15] MEDS: HEPARIN SODIUM,PORCINE 5,000 UNITS/ML VIAL SUBCUT SCH ×2 (09:00→21:16)
[2020-11-15] MEDS: CEFEPIME 0.5 GM in D5W 50 ML IV SCH ×2 (09:02→21:14)
--- NOTE | 2020-11-15 10:14 | NUR ---
Holding Heparin: Per Dr. Holly hold Heparin r/t blood in urine.
--- NOTE | 2020-11-15 10:45 | NUR ---
RN ROUNDS: PATIENT REPOSITIONED FOR COMFORT, POSITIONED WITH PILLOWS, HEELS FLOATING, NEW LINENS APPLIED WITH NEW GOWN, BED LOW AND LOCKED FOR SAFETY, PATIENT REMAINS ON SEDATION 35MCG / DIPRIVAN.
--- NOTE | 2020-11-15 10:52 | NUR ---
BLOOD PRESSURE: DR. MCCANN AWARE OF LIABLE BLOOD PRESSURE, LEVOPHED RESTARTED AT INITIAL DOSE 0.01MCG. MONITORING AT THIS TIME.
[2020-11-15] MEDS: ALBUMIN HUMAN 25% 50 ML IV SCH ×3 (11:47→23:25)
--- NOTE | 2020-11-15 11:53 | NUR ---
DR. RAHMAN: MD AT BEDSIDE, VERBAL REPORT GIVEN, NO NEW ORDERS AT THIS TIME.
--- NOTE | 2020-11-15 13:30 | NUR ---
HOLDING LABETALOL: SBP <140 PATIENT REMAINS ON LEVOPHED.
--- NOTE | 2020-11-15 15:46 | NUR ---
DR. MCCALL: MD AT BEDSIDE, VERBAL REPORT GIVEN. NO NEW ORDERS.
--- NOTE | 2020-11-15 18:55 | NUR ---
RN ROUNDS: PATIENT REPOSITIONED WITH PILLOW SUPPORT, CONTINUES ON SEDATION, ALL NEEDS MET AT THIS TIME WILL ENDORSE CARES TO NOC NURSE.
--- NOTE | 2020-11-15 18:59 | NUR ---
CLOSING NOTE: REPORT GIVEN TO NOC NURSE, ALL CARES ENDORSED TO INCOMING RN.
--- NOTE | 2020-11-15 20:00 | NUR ---
ORALLY INTUBATED. SUCTIONED WITH MOD AMOUNT OF THICK YELLOW MUCUS OBTAINED. ORAL CARE GIVEN. NGT WITH JEVITY 1.2 INFUSING AT 10CC/HR. RESIDUAL CHECK 15CC. NGT FEEDING INCREASED TO 20CC/HR. LEVOPHED AT 0.01 MCG/KG/MIN. BP 138/49. LEVOPHED OFF. BELIA PICC LINE DRSG D/I. GARCIA CATH PATENT DRAINING CLOUDY JAVAN URINE TO GRAVITY. SINUS FABIANO . ON DIPRIVAN AT 30 MCG/ KG/MIN. ON MORPHINE DRIP AT 4 MG/HR. MAYA SOFT WRIST RESTRAINTS ON FOR SAFETY.
--- NOTE | 2020-11-15 22:00 | NUR ---
HS CARE GIVEN.
[2020-11-15] MEDS ORDERED: LABETALOL 100 MG/ 20ML VIAL ONE (22:35)
--- NOTE | 2020-11-15 23:30 | NUR ---
HR 48. HOVERING IN THE 40'S. DIPRIVAN DECREASED TO 25 MCG/KG/MIN. MORPHINE DRIP TITRATED DOWN TO 2 MG/HR.
[2020-11-16] VITALS (29 sets, daily range): BP systolic 118–195
--- NOTE | 2020-11-16 | NUR ---
BOUTS OF RESTLESSNESS. SUCTIONED WITH SAME RESULTS. PULSES PALPABLE. TURNED. ORAL CARE GIVEN. [id number], NO INSULIN DUE PER SLIDING SCALE COV. RESIDUAL CHECK 10CC, NGT FDG INCREASED TO 30CC/HR. NGT FLUSHED WITH 100CC H2O.
[2020-11-16] MEDS: PROPOFOL DRIP 100 ML IV PRN ×3 (00:05→23:10)
[2020-11-16] MEDS: LABETALOL 100 MG/ 20ML VIAL IVP SCH ×6 (01:00→21:52)
--- NOTE | 2020-11-16 02:00 | NUR ---
CIRCULATION CHECK DONE. REPOSITIONED.
--- NOTE | 2020-11-16 04:00 | NUR ---
AM CARE DONE. SUCTIONED. TURNED. ORAL CARE GIVEN.
[2020-11-16] MEDS: IPRATROPIUM/ALBUTEROL SULFATE 3 ML AMPUL.NEB (DUONEB) INH SCH ×6 (04:19→23:30)
--- NOTE | 2020-11-16 04:30 | NUR ---
BP 195/69, DIPRIVAN INCREASED TO 25 MCG/KG/MIN. , MORPHINE INCREASED TO 3 MG/HR. APRESOLINE 10MG IVP GIVEN. RESIDUAL CHECK 20CC. NGT FDG INCREASED TO 40CC/HR.
[2020-11-16] MEDS: hydrALAZINE HCL 20 MG/ML VIAL IVP PRN (04:39)
[2020-11-16] MEDS ORDERED: LEVOTHYROXINE SODIUM 0.075 MG TABLET ONE (05:50)
--- NOTE | 2020-11-16 06:00 | NUR ---
ACCU-CHEK 129, NO INSULIN DUE PER SLIDING SCALE COV. NGT FLUSHED WITH 100CC H2O. UO OLIGURIC AT 250CC. REMAINS IN GUARDED CONDITION.
[2020-11-16] MEDS: INSULIN REGULAR, HUMAN 100 UNITS/ML, 10 ML VIAL (humuLIN R) SUBCUT PRN (06:10)
[2020-11-16] MEDS: LEVOTHYROXINE SODIUM 0.075 MG TABLET PO SCH (06:11)
[2020-11-16] MEDS: metroNIDAZOLE 250 mg/NS 50 ML IV SCH ×3 (06:11→21:52)
[2020-11-16] MEDS: METOCLOPRAMIDE HCL 10 MG/2 ML VIAL IVP SCH ×3 (06:12→21:53)
[2020-11-16 06:41] LABS: BASOPHILS % (AUTO) 0.1 % (0.0-2.0); EOSINOPHILS % (AUTO) 0.1 % (0.0-4.0); HEMATOCRIT 32.4 % (36-54); HEMOGLOBIN 10.7 g/dL (14.0-18.0); LYMPHOCYTES # (AUTO) 0.4 K/uL (1.0-5.5); LYMPHOCYTES % (AUTO) 2.4 % (20.5-51.5); MEAN CORPUSCULAR HEMOGLOBIN 31 pg (27-31); MEAN CORPUSCULAR HGB CONC 33 % (32-36); MEAN CORPUSCULAR VOLUME 92 fL (79.0-98.0); MONOCYTES # (AUTO) 0.9 K/uL (0.0-1.0); MONOCYTES % (AUTO) 5.9 % (1.7-9.3); NEUTROPHILS # (AUTO) 14.5 K/uL (1.8-7.7); NEUTROPHILS % (AUTO) 91.5 % (40.0-70.0); PLATELET COUNT (AUTO) 191 K/uL (130-430); RED CELL DISTRIBUTION WIDTH 15.1 % (9.0-15.0); WHITE BLOOD COUNT (AUTO) 15.9 K/uL (4.8-10.8)
[2020-11-16 07:07] LABS: ALANINE AMINOTRANSFERASE 90 U/L (12-78); ALBUMIN 2.4 g/dL (3.4-4.8); ANION GAP 2 (5-15); ASPARTATE AMINOTRANSFERASE 67 U/L (10-37); CHLORIDE 111 mmol/L (98-107); CREATININE 0.84 mg/dL (0.55-1.30); GLUCOSE 138 mg/dL (70-99); POTASSIUM 4.2 mmol/L (3.5-5.1); SODIUM SERUM 142 mmol/L (136-145); TOTAL BILIRUBIN 0.8 mg/dL (0.0-1.0); UREA NITROGEN, BLOOD 34 mg/dL (8-21)
[2020-11-16] MEDS: BUDESONIDE 0.5 MG/2 ML AMPUL.NEB INH SCH ×2 (07:15→19:30)
[2020-11-16] MEDS: methylPREDNISolone SOD SUCC 40 MG/ML VIAL IVP SCH ×2 (09:57→21:54)
[2020-11-16] MEDS: CEFEPIME 0.5 GM in D5W 50 ML IV SCH ×2 (09:57→21:51)
[2020-11-16] MEDS: PANTOPRAZOLE SODIUM 40 MG/VIAL (PROTONIX) IVP SCH ×2 (09:57→21:51)
[2020-11-16] MEDS: NEPHROVITE, (FOLIC ACID/VITAMIN B COMP W-C 1 TAB) NG SCH (10:00)
[2020-11-16] MEDS: METOPROLOL TARTRATE 50 MG TABLET PO SCH ×3 (10:00→21:52)
[2020-11-16] MEDS: HEPARIN SODIUM,PORCINE 5,000 UNITS/ML VIAL SUBCUT SCH ×2 (10:06→21:53)
[2020-11-16 11:28] LABS: ERYTHROCYTE SEDIMENTATION RATE 7 MM/HR (0-15)
--- NOTE | 2020-11-16 20:00 | NUR ---
ORALLY INTUBATED. SUCTIONED WITH MOD AMOUNT OF SHAY YELLOW MUCUS OBTAINED. ORAL CARE GIVEN. NGT FEEDING WITH JEVITY 1.2 AT 40CC/HR. RESIDUAL CHECK 30CC. BELIA PICC LINE DRSG D/I. ON DIPRIVAN AT 30 MCG/KG/MIN. ON MORPHINE DRIP AT 3 MG/HR. MAYA SOFT WRIST RESTRAINTS ON FOR SAFETY. GARCIA CATH PATENT DRAINING CLEAR JAVAN URINE TO GRAVITY. SINUS FABIANO.
[2020-11-16] MEDS: D5NS 1,000 ML IV SCH (21:50)
--- NOTE | 2020-11-16 22:00 | NUR ---
HS ACRE DONE.
[2020-11-17] VITALS (36 sets, daily range): BP systolic 88–153
--- NOTE | 2020-11-17 | NUR ---
SUCTIONED WITH SAME RESULTS. CIRCULATION CHECK DONE. ORAL CARE GIVEN. ACCU-CHEK 122, NO INSULIN DUE PER SLIDING SCALE.
[2020-11-17] MEDS: INSULIN REGULAR, HUMAN 100 UNITS/ML, 10 ML VIAL (humuLIN R) SUBCUT PRN ×2 (01:08→18:31)
[2020-11-17] MEDS: LABETALOL 100 MG/ 20ML VIAL IVP SCH ×6 (01:12→21:00)
--- NOTE | 2020-11-17 02:00 | NUR ---
REPORT GIVEN TO ANDRE JACOBS RN FOR CONTINUATION OF CARE.
[2020-11-17] MEDS: IPRATROPIUM/ALBUTEROL SULFATE 3 ML AMPUL.NEB (DUONEB) INH SCH ×6 (03:40→23:20)
[2020-11-17] MEDS: MORPHINE SULFATE IN 0.9 % NACL 100 ML IV PRN (06:11)
[2020-11-17] MEDS: METOCLOPRAMIDE HCL 10 MG/2 ML VIAL IVP SCH ×3 (06:27→21:05)
[2020-11-17] MEDS: metroNIDAZOLE 250 mg/NS 50 ML IV SCH ×3 (06:27→21:06)
[2020-11-17 06:40] LABS: BASOPHILS % (AUTO) 0.2 % (0.0-2.0); EOSINOPHILS % (AUTO) 0.1 % (0.0-4.0); HEMATOCRIT 31.5 % (36-54); HEMOGLOBIN 10.2 g/dL (14.0-18.0); LYMPHOCYTES # (AUTO) 0.3 K/uL (1.0-5.5); LYMPHOCYTES % (AUTO) 1.6 % (20.5-51.5); MEAN CORPUSCULAR HEMOGLOBIN 30 pg (27-31); MEAN CORPUSCULAR HGB CONC 32 % (32-36); MEAN CORPUSCULAR VOLUME 94 fL (79.0-98.0); MONOCYTES # (AUTO) 0.8 K/uL (0.0-1.0); MONOCYTES % (AUTO) 4.8 % (1.7-9.3); NEUTROPHILS # (AUTO) 14.7 K/uL (1.8-7.7); NEUTROPHILS % (AUTO) 93.3 % (40.0-70.0); PLATELET COUNT (AUTO) 174 K/uL (130-430); RED BLOOD CELL COUNT(AUTO) 3.36 MIL/uL (4.2-6.2); RED CELL DISTRIBUTION WIDTH 15.4 % (9.0-15.0); WHITE BLOOD COUNT (AUTO) 15.8 K/uL (4.8-10.8)
[2020-11-17] MEDS: LEVOTHYROXINE SODIUM 0.075 MG TABLET PO SCH (06:46)
[2020-11-17 07:02] LABS: ALANINE AMINOTRANSFERASE 69 U/L (12-78); ANION GAP 7 (5-15); ASPARTATE AMINOTRANSFERASE 49 U/L (10-37); CALCIUM 8.1 mg/dL (8.4-11.0); CHLORIDE 112 mmol/L (98-107); CREATININE 1.28 mg/dL (0.55-1.30); GLUCOSE 141 mg/dL (70-99); PHOSPHORUS 3.8 mg/dL (2.7-4.5); POTASSIUM 4.7 mmol/L (3.5-5.1); SODIUM SERUM 143 mmol/L (136-145); TOTAL BILIRUBIN 0.5 mg/dL (0.0-1.0); UREA NITROGEN, BLOOD 44 mg/dL (8-21)
--- NOTE | 2020-11-17 08:00 | NUR ---
AM ASSESSMENT PT ON PROPOFOL DRIP AND MORPHINE DRIP, ORAL SUCTIONING DONE, REPOSITIONED PT TO HIS SIDE, ARMS WEEPING, SKIN CARE, WOUND CARE, SKIN TEARS TO RIGHT HAND, FOAM DRESSINGS APPLIED TO HANDS AND LOWER LEGS, SACRAL AREA.
[2020-11-17] MEDS: BUDESONIDE 0.5 MG/2 ML AMPUL.NEB INH SCH ×2 (08:15→19:45)
[2020-11-17] MEDS: CEFEPIME 0.5 GM in D5W 50 ML IV SCH ×2 (08:51→21:06)
[2020-11-17] MEDS: HEPARIN SODIUM,PORCINE 5,000 UNITS/ML VIAL SUBCUT SCH ×2 (08:52→21:00)
[2020-11-17] MEDS: PANTOPRAZOLE SODIUM 40 MG/VIAL (PROTONIX) IVP SCH ×2 (08:52→21:05)
[2020-11-17 08:53] LABS: C-REACTIVE PROTEIN QUANT 2.5 mg/dL (0-0.5)
[2020-11-17] MEDS: METOPROLOL TARTRATE 50 MG TABLET PO SCH ×3 (08:53→21:00)
[2020-11-17] MEDS: NEPHROVITE, (FOLIC ACID/VITAMIN B COMP W-C 1 TAB) NG SCH (08:53)
[2020-11-17 09:56] LABS: ERYTHROCYTE SEDIMENTATION RATE 7 MM/HR (0-15)
--- NOTE | 2020-11-17 10:30 | NUR ---
PICC Transparent dressing removed from right upper arm. Sterile technique applied while doing dressing change, biopatch applied to puncture site, transparent dressing used to cover area.
[2020-11-17] MEDS: methylPREDNISolone SOD SUCC 40 MG/ML VIAL IVP SCH ×2 (11:00→21:05)
--- NOTE | 2020-11-17 11:18 | NUR ---
VASCULAR SURGERY CONSULT CALLED AND SPOKE TO DR PATEL, IN REGARDS TO TRACHEOSTOMY, HE STATED THAT DR WOODS IS ON FOR TODAY AND HE WILL GET IN TOUCH WITH HIM FOR REFERRAL. Addendum: 11/17/20 at 1141 by Karin Dhillon RN GENERAL SURGERY CONSULT INSTEAD OF VASCULAR.
--- NOTE | 2020-11-17 12:14 | NUR ---
SURGEON. DR WOODS AT BEDSIDE, PLAN FOR TRACHEOSTOMY TOMORROW.
--- NOTE | 2020-11-17 12:30 | NUR ---
. PAGED DR SCHMIDT FOR NOTIFICATION OF SURGERY SCHEDULED TOMORROW.
--- NOTE | 2020-11-17 14:59 | NUR ---
Nutrition F/U Admitting Diagnosis: Right Hip Fracture Medical History Comment: Pt w/: S/P Mechanical fall, Heavy use of ETOH recently elevated blood alcohol of 165, COPD, Hypothyroidism, Mild Leukocytosis, Anemia, Acute on chronic hypoxic respiratory failure per MD notes. PMH: COPD, Hypothyroidism. 11/11: MD notes: Sepsis 11/17: MD notes: ARF 2/2 VMN Subjective information: Pt was seen in ICU, EN infusing as ordered. RN was not available during visit and was helping in care for other ICU pt. Per EMR review, pt was reintubated on Tuesday 11/14, NGT was re-inserted on 11/15 and EN has been started on 11/15, MD and RN notes, EN has been well tolerated by pt. Abdomen is soft w/ active bowel sounds. Last BM 11/17 x1. Shay scale: 6, Pharmaceutical Engineer 11/14 -no pressure injury noted. EN rate: 40ml 11/17; GRV: 15ml 11/17. Current EN regimen provides 1152 kcal, 53gm protein and 775ml free water daily which provides: 85% of estimated calorie needs and 73% of lower end of estimated protein needs. Pt may benefit from Glucerna 1.2 for elevated BG and less fiber content for GI issues. Current Diet Order/Nutrition Support: Jevity 1.2 at 40ml/hr, FWF 200ml via NGT Pertinent Medications: Synthroid, Nephrovite, Insulin, Solu-medrol, Heparin, reglan, Protonix IV, Norepinephrine, Propofol: 9.517ml/hr (251 kcal/day) Pertinent Labs: 11/17: WBC 15.8H, BG 141H, POC BG 127H, BUN 44H, Cre 1.28 Height: 5 feet 9.00 inches Weight: (11/14) (11/01/20) 127 pounds/ 57.885600 kilograms. (11/10) 116#/ 52.8kg BMI: (11/14) (11/01/20) 18.75 kg/m2. BMI (11/10): 17.2 kg/m2. (Pt is underweight) Estimated Energy Expenditure (kcals/day) 1354 kcal/day (PSU 2003b for vent) Estimated Protein Required (g/day) 73-110gm/day (1-1.5 gm/kg IBW for wt gain promotion, wound healing) Estimated Fluid Required (l/day) Per MD (ARF) Problem/Etiology/Signs/Symptoms Inadequate oral intake r/t respiratory distress AEB NPO status and pt is on venti mask. 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 (*modified) Altered nutrition related labs r/t renal dysfunction AEB BUN, Cre labs. (*ongoing) Altered nutrition related labs r/t medication interaction AEB elevated BG and steroid therapy. (*new) Expected Outcomes/Goals Monitor EN tolerance and intake w/ goal of pt meeting more than 75% of estimated nutritional needs, labs trending WNL, normal GI function, skin integrity/wt maintenance. Dietitian Recommendations *Recommend: modify EN formula to better meet estimated needs. *Recommend: Glucerna 1.2 at 45ml/hr (new goal), FWF 200ml Q6H per physician via NGT Provides: 1296 kcal, 65gm protein and 1669ml fluids daily. Meets: 96% of lower end of estimated calorie needs and 89% of lower end of estimated protein needs. Follow Up High Risk: F/U in 2-3days
--- NOTE | 2020-11-17 15:12 | NUR ---
Dietitian Recommendations *Recommend: modify EN formula to better meet estimated needs. *Recommend: Glucerna 1.2 at 45ml/hr (new goal), FWF 200ml Q6H per physician via NGT Provides: 1296 kcal, 65gm protein and 1669ml fluids daily. Meets: 96% of lower end of estimated calorie needs and 89% of lower end of estimated protein needs. Please see Nutrition f/U note for details RETIREMENT, RD
--- NOTE | 2020-11-17 17:15 | NUR ---
Flako. DR DAS CAME IN AND EXAMINED PT. PLAN FOR TOMORROW EGD WITH PEG PLACEMENT IN THE MORNING.
[2020-11-17] MEDS: PROPOFOL DRIP 100 ML IV PRN (17:33)
--- NOTE | 2020-11-17 19:30 | NUR ---
PM ASSESSMENT REPORT RECEIVED FROM GEORGINA TRINH. PT RECEIVED IN BED WITH EYES CLOSED, VSS, NO S/S OF ACUTE DISTRESS NOTED. PT INTUBATED, VENT SETTINGS: AC 18, TV 450, FIO2 50%, PEEP 5. SB ON MONITOR. BELIA PICC IN PLACE INFUSING IVF, DIPRIVAN, AND MORPHINE DRIPS PER ORDERS. L NARE NGT IN PLACE RUNNING JEVITY @ 40 CC/HR. BILATERAL SOFT WRIST RESTRAINTS IN PLACE, NO S/S OF INJURY NOTED. GARCIA CATH IN PLACE DRAINING URINE TO GRAVITY. HOB ELEVATED, BED IN LOWEST POSITION, CALL LIGHT IN REACH. WILL CONTINUE TO MONITOR.
[2020-11-18] VITALS (34 sets, daily range): BP systolic 75–159
--- NOTE | 2020-11-18 00:47 | NUR ---
ENDORSEMENT BEDSIDE REPORT GIVEN TO CARYN RN USING SBAR APPROACH FOR ASSUMPTION OF CARE.
--- NOTE | 2020-11-18 00:47 | NUR ---
Patient was endorsed to my care, patient is obtunded. On vent, setting are as follows: AC 18, TV 450, FiO2 50%, peep 5, tolerating vent well. Carl cath noted, secured below bladder level and draining out yellow urine. BELIA PICC noted, dry and intact, running NS at 50ml/hr, diprovan 25 and morphine 3. L Nare tube, not running anything as patient has procedure in the am and needs to be fasting. Restraints are in place, skin integrity is intact. Bed is low, locked, 2 side rails are up and call light is within reach.
[2020-11-18] MEDS: LABETALOL 100 MG/ 20ML VIAL IVP SCH ×6 (01:00→21:00)
[2020-11-18] MEDS: D5NS 1,000 ML IV SCH ×3 (03:00→15:16)
[2020-11-18] MEDS: PROPOFOL DRIP 100 ML IV PRN ×2 (03:41→12:15)
[2020-11-18] MEDS: IPRATROPIUM/ALBUTEROL SULFATE 3 ML AMPUL.NEB (DUONEB) INH SCH ×5 (03:46→19:59)
[2020-11-18] MEDS: LEVOTHYROXINE SODIUM 0.075 MG TABLET PO SCH (06:41)
[2020-11-18] MEDS: metroNIDAZOLE 250 mg/NS 50 ML IV SCH ×3 (06:41→22:41)
[2020-11-18] MEDS: METOCLOPRAMIDE HCL 10 MG/2 ML VIAL IVP SCH ×3 (06:41→22:41)
[2020-11-18] MEDS: INSULIN REGULAR, HUMAN 100 UNITS/ML, 10 ML VIAL (humuLIN R) SUBCUT PRN (06:45)
[2020-11-18 06:52] LABS: PROTHROMBIN TIME 10.1 SECS (9.5-12.5)
[2020-11-18] MEDS: BUDESONIDE 0.5 MG/2 ML AMPUL.NEB INH SCH ×2 (07:12→19:59)
--- NOTE | 2020-11-18 07:45 | NUR ---
AM ROUNDS: PATIENT RECEIVED ON THE BED,SLEEPING. ON MECHANICAL VENTILATOR,SEE [facility] FOR SETTINGS. ON SEDATION.MORPHINE AT 3MG/H,PROPOFOL AT 25MCG/KG/MIN AND D5NS @50CC/H.LEFT NARES NG TUBE CLAMPED.HOLD TUBE FEEDS DUE TO PROCEDURE TODAY.WAITING FOR MD TO SIGN TO SIGN CONSENT. CONTINUE TO MONITOR.
[2020-11-18] MEDS: methylPREDNISolone SOD SUCC 40 MG/ML VIAL IVP SCH ×2 (08:35→21:00)
[2020-11-18] MEDS: PANTOPRAZOLE SODIUM 40 MG/VIAL (PROTONIX) IVP SCH ×2 (08:35→21:00)
[2020-11-18] MEDS: NEPHROVITE, (FOLIC ACID/VITAMIN B COMP W-C 1 TAB) NG SCH (09:00)
[2020-11-18] MEDS: METOPROLOL TARTRATE 50 MG TABLET PO SCH ×3 (09:00→21:00)
[2020-11-18] MEDS: HEPARIN SODIUM,PORCINE 5,000 UNITS/ML VIAL SUBCUT SCH ×2 (09:00→21:00)
[2020-11-18] MEDS: CEFEPIME 0.5 GM in D5W 50 ML IV SCH ×2 (09:06→21:00)
[2020-11-18] MEDS: MORPHINE SULFATE IN 0.9 % NACL 100 ML IV PRN (09:16)
--- NOTE | 2020-11-18 11:32 | NUR ---
SS notes BUSINESS CONSULTANT received phone call from manager asset Rose stating pt. needs a trach and peg and pt. has no known next of kin. BUSINESS CONSULTANT stated she will open up case and look into this matter. BUSINESS CONSULTANT called a contact, Carline Rene who also resides at [facility] ([facility]), . BUSINESS CONSULTANT spoke to David who stated Carline Rene is not currently at this facility. Carline Mendoza is at [facility] in [facility] ([facility]). David stated Carline would not be a good point of contact for this patient as Carline has her own mental limitations. David stated she would try to reach out to Carline to see if she remembers if pt.'s brother is still living or if pt. has any other family/friends. BUSINESS CONSULTANT called David again at [facility]. Nutrition And Dietetics Instructor took down BUSINESS CONSULTANT name and number and will have David call back.
[2020-11-18] MEDS ORDERED: SIMETHICONE 40 MG/0.6 ML ML ONE (11:35)
[2020-11-18] MEDS ORDERED: fentaNYL CITRATE/PF 100 MCG/2 ML AMP ONE (11:35)
[2020-11-18] MEDS ORDERED: MEPERIDINE 100 MG INJ. 100 MG/ML VIAL ONE (11:36)
[2020-11-18] MEDS ORDERED: MIDAZOLAM HCL 5 MG/5 ML VIAL ONE (11:36)
--- NOTE | 2020-11-18 11:44 | NUR ---
G TUBE PLACE: GI STAFF IN THE ROOM WITH DR DAS. WITH MINIMAL SEDATION RENDERED BY GI NURSE PER ORDER. STABLE DURING THE PROCEDURE. G TUBE PLACED BY DR DAS,DRESSING INTACT.
--- NOTE | 2020-11-18 11:45 | NUR ---
RT NOTES Standby for PEG placement. A/w remains secure/patent.
--- NOTE | 2020-11-18 13:15 | NUR ---
TO OR: REPORT GIVEN TO OR NURSE URBANO.TO OR PER TAMMI.ACCOMPANIED BY OR STAFF AND RT AMBU BAG PT TO OR. STABLE VITALS. CONTINUE MORPHINE DRIP AND PROPOFOL PER ANESTHESIOLOGIST ORDER DURING TRANSPORT. STABLE.
--- NOTE | 2020-11-18 13:15 | NUR ---
RT NOTES transported pt to O.R. bagging w/ 100% O2 via resus. bag to ETT. Dr Feliciano took over bagging once in O.R unit.
[2020-11-18] MEDS ORDERED: GLYCOPYRROLATE 0.2 MG/ML VIAL IJ ONE (13:20)
[2020-11-18] MEDS ORDERED: SEVOFLURANE 15 MIN GAS INH ONE (13:20)
[2020-11-18] MEDS ORDERED: PROPOFOL 200MG/ 20ML VIAL (DIPRIVAN) IV ONE (13:20)
[2020-11-18] MEDS ORDERED: LIDOCAINE 1% 10 MG/ML, 20 ML MDV INJ ONE (13:20)
[2020-11-18] MEDS ORDERED: D5NS 1,000 ML IV.SOLN IV ONE (13:20)
--- NOTE | 2020-11-18 14:00 | NUR ---
RT NOTES Transported pt back to ICU from O.R, bagged w/ 100%v O2 via resus. bag to trach tube. Pt. back on same vent settings once in the unit. Obturator at bedside. Ambubag and spare trach at bedside.
[2020-11-18] MEDS ORDERED: NACL 0.9% 1,000 ML IV SCH (14:15)
--- NOTE | 2020-11-18 14:20 | NUR ---
PATIENT BACK TO ROOM: PATIENT WAS BACK IN THE ROOM AT 14OO PER REPORT FROM OR. RECEIVED PATIENT ON TRACH,WITH SMALL BLOOD STAINED ON THE DRESSING,NO ACTIVE BLEEDING ON THE SITE. WITH SAME VENT SETTINGS,SEE MEDITECH. RIGHT UPPER ARM PICC LINE INTACT,CONTINUE MORPHINE DRIP,PROPOFOL DRIP AND D5NS @ 50CC/H ORDERED. G TUBE CLAMPED .TO START FEED IN 12 HOURS,PREFERABLY IN AM PER GI.GARCIA IN SITU.WITH BILATERAL SCD'S ON LE AND HEEL FOAM.CONTINUE TO MONITOR. STABLE.
--- NOTE | 2020-11-18 18:52 | NUR ---
END OF SHIFT: PATIENT MAINTAINED ON MECHANICAL VENT,WITH FIO2=50%. WITH GOOD SATURATION OF 95-96%. RIGHT UPPER ARM,PICC LINE,WITH MORPHINE DRIP,PROPOFOL DRIP AND IV FLUIDS RUNNING WELL.G TUBE CLAMPED. GARCIA DRAINING TO JAVAN URINE. WEEPING NOTED ON BOTH ARMS.CARE RENDERED. SAFETY MEASURES RENDERED.BED LOCKED AT LOWEST POSITION. CONDITION GUARDED.
--- NOTE | 2020-11-18 19:35 | NUR ---
Opening note Received report and assumed care. Vent to trach in place tolerating setting on AC 18. Restlessness noted; morphine drip infusing to BELIA picc line. Propofol infusing at 25 mcg/kg/min, will continue to monitor patient for need to increase sedation.
--- NOTE | 2020-11-18 20:30 | NUR ---
Assessment completed, repositioned for comfort. patient continues to favor left side despite repositioning.
[2020-11-19] VITALS (33 sets, daily range): BP systolic 103–158
[2020-11-19] MEDS: LABETALOL 100 MG/ 20ML VIAL IVP SCH ×7 (01:00→20:25)
[2020-11-19] MEDS: IPRATROPIUM/ALBUTEROL SULFATE 3 ML AMPUL.NEB (DUONEB) INH SCH ×7 (01:13→23:05)
--- NOTE | 2020-11-19 04:30 | NUR ---
morning care provided. Bed bath given CHG towels used. Patient tolerating well
[2020-11-19] MEDS: LEVOTHYROXINE SODIUM 0.075 MG TABLET PO SCH (06:11)
[2020-11-19] MEDS: METOCLOPRAMIDE HCL 10 MG/2 ML VIAL IVP SCH ×3 (06:14→21:28)
[2020-11-19] MEDS: metroNIDAZOLE 250 mg/NS 50 ML IV SCH ×3 (06:16→21:28)
--- NOTE | 2020-11-19 07:00 | NUR ---
opening notes pt resting in bed, moves arms at times. pt on vent, settings at AC 18, TV 450, FIO2 50%, PEEP of 5, tolerating well. PICC LINE INTACT AND PATENT, NO SIGNS OF INFILTRATION NOTED. DRIPS MORPHINE AT 3MG/HR AND DIPRIVAN AT 25MCG/KG/MIN, FLUIDS RUNNING ORDERED PER MD. SCDS ON AND INTACT. NO ACUTE DISTRESS NOTED. ALL NEEDS MET. CALL LIGHT IN REACH. FALL AND ASPIRATION PRECAUTIONS IN PLACE
[2020-11-19] MEDS: BUDESONIDE 0.5 MG/2 ML AMPUL.NEB INH SCH ×2 (07:43→19:10)
[2020-11-19] MEDS: CEFEPIME 0.5 GM in D5W 50 ML IV SCH ×2 (08:54→20:16)
[2020-11-19] MEDS: PANTOPRAZOLE SODIUM 40 MG/VIAL (PROTONIX) IVP SCH ×2 (09:01→20:30)
[2020-11-19] MEDS: methylPREDNISolone SOD SUCC 40 MG/ML VIAL IVP SCH ×2 (09:02→20:35)
[2020-11-19] MEDS: METOPROLOL TARTRATE 50 MG TABLET PO SCH ×3 (09:02→20:24)
[2020-11-19] MEDS: NEPHROVITE, (FOLIC ACID/VITAMIN B COMP W-C 1 TAB) NG SCH (09:02)
[2020-11-19] MEDS: MORPHINE SULFATE IN 0.9 % NACL 100 ML IV PRN (09:06)
[2020-11-19] MEDS: HEPARIN SODIUM,PORCINE 5,000 UNITS/ML VIAL SUBCUT SCH ×2 (09:06→20:39)
--- NOTE | 2020-11-19 10:18 | NUR ---
RT NOTES SBT to be started as soon as sedation is off.
--- NOTE | 2020-11-19 10:31 | NUR ---
WEANED DIPRIVAN TO 20mcg/kg/hr at this time.
--- NOTE | 2020-11-19 10:40 | NUR ---
RT NOTES Per titration order, FIO2 to 0.40. Will monitor pt. RN made aware.
--- NOTE | 2020-11-19 11:00 | NUR ---
RT NOTES Pt. not responding appropriately despite decreased sedation, will try SBT later.
[2020-11-19] MEDS: PROPOFOL DRIP 100 ML IV PRN ×2 (12:01→23:57)
[2020-11-19] MEDS: D5NS 1,000 ML IV SCH (13:32)
--- NOTE | 2020-11-19 15:33 | NUR ---
RT NOTES Unable to start CPAP trial. Per RN, pt did not tolerate decreased sedation.
--- NOTE | 2020-11-19 15:51 | NUR ---
pt restless and agitated, moving arms, unable to calm pt down by talking to him. titrated diprivan to 25mcg/kg/hr.
--- NOTE | 2020-11-19 17:17 | NUR ---
RT NOTES RN stated pt's b/p would go up when sedation is decreased. Unable to carry out CPAP trials.
--- NOTE | 2020-11-19 17:38 | NUR ---
held trandate at this time, bp 101/55, orders to hold if sbp <140.
--- NOTE | 2020-11-19 18:47 | NUR ---
closing notes pt resting in bed, moves arms at times and attempts to pull on tubes and lines. pt on vent, settings at AC 18, TV 450, FIO2 40%, PEEP of 5, tolerating well. picc line intact and patent, no signs of infiltration noted, drips include morpine at 3mg/hr and diprivan at 25mcg/kg/min, fluids running as ordered per md. scds on and in place. no acute distress noted. all needs met. call light in reach. fall and aspiration precautions in place. will endorse to noc nurse.
--- NOTE | 2020-11-19 19:35 | NUR ---
Opening note Received patient and assumed care. vent to trach in place; no signs of distress as patient tolerates vent settings on AC 18. BL wrist restraints in place for safety. patient continues to be sedated with Diprivan. Will continue to monitor patient as per unit protocol.
--- NOTE | 2020-11-19 20:10 | NUR ---
Assessment completed; repositioned for comfort.
[2020-11-20] VITALS (30 sets, daily range): BP systolic 82–189
[2020-11-20] MEDS: LABETALOL 100 MG/ 20ML VIAL IVP SCH ×6 (00:40→20:34)
[2020-11-20] MEDS: IPRATROPIUM/ALBUTEROL SULFATE 3 ML AMPUL.NEB (DUONEB) INH SCH ×6 (03:55→23:25)
[2020-11-20] MEDS: LEVOTHYROXINE SODIUM 0.075 MG TABLET PO SCH (06:22)
[2020-11-20] MEDS: METOCLOPRAMIDE HCL 10 MG/2 ML VIAL IVP SCH ×3 (06:22→21:08)
[2020-11-20] MEDS: metroNIDAZOLE 250 mg/NS 50 ML IV SCH (06:23)
[2020-11-20 07:21] LABS: ALANINE AMINOTRANSFERASE 79 U/L (12-78); ALBUMIN 1.8 g/dL (3.4-4.8); ANION GAP 8 (5-15); ASPARTATE AMINOTRANSFERASE 75 U/L (10-37); CALCIUM 8.3 mg/dL (8.4-11.0); CHLORIDE 115 mmol/L (98-107); CREATININE 1.25 mg/dL (0.55-1.30); GLUCOSE 170 mg/dL (70-99); SODIUM SERUM 144 mmol/L (136-145); TOTAL BILIRUBIN 0.9 mg/dL (0.0-1.0); UREA NITROGEN, BLOOD 42 mg/dL (8-21)
[2020-11-20 07:31] LABS: BASOPHILS % (AUTO) 0.2 % (0.0-2.0); HEMATOCRIT 29.9 % (36-54); HEMOGLOBIN 9.6 g/dL (14.0-18.0); LYMPHOCYTES # (AUTO) 0.4 K/uL (1.0-5.5); LYMPHOCYTES % (AUTO) 1.2 % (20.5-51.5); MEAN CORPUSCULAR HEMOGLOBIN 30 pg (27-31); MEAN CORPUSCULAR HGB CONC 32 % (32-36); MEAN CORPUSCULAR VOLUME 94 fL (79.0-98.0); MONOCYTES # (AUTO) 1.3 K/uL (0.0-1.0); MONOCYTES % (AUTO) 4.5 % (1.7-9.3); NEUTROPHILS # (AUTO) 27.5 K/uL (1.8-7.7); PLATELET COUNT (AUTO) 155 K/uL (130-430); RED CELL DISTRIBUTION WIDTH 15.6 % (9.0-15.0); WHITE BLOOD COUNT (AUTO) 29.2 K/uL (4.8-10.8)
[2020-11-20] MEDS: methylPREDNISolone SOD SUCC 40 MG/ML VIAL IVP SCH ×2 (08:30→20:32)
[2020-11-20] MEDS: PANTOPRAZOLE SODIUM 40 MG/VIAL (PROTONIX) IVP SCH ×2 (08:30→20:32)
[2020-11-20] MEDS: CEFEPIME 0.5 GM in D5W 50 ML IV SCH (08:31)
[2020-11-20] MEDS: NEPHROVITE, (FOLIC ACID/VITAMIN B COMP W-C 1 TAB) NG SCH (08:31)
[2020-11-20] MEDS: METOPROLOL TARTRATE 50 MG TABLET PO SCH ×3 (08:31→20:35)
[2020-11-20] MEDS: HEPARIN SODIUM,PORCINE 5,000 UNITS/ML VIAL SUBCUT SCH ×2 (08:34→20:50)
--- NOTE | 2020-11-20 08:45 | NUR ---
dr desouza was here and seen pt md ordered to wean off pt from ms and profopol. orders carried out.
[2020-11-20 09:12] LABS: NEUTROPHILS % (AUTO) 94.1 % (40.0-70.0)
--- NOTE | 2020-11-20 09:30 | NUR ---
g-tube feeding rate changed to 50 cc/hr.
[2020-11-20] MEDS: D5NS 1,000 ML IV SCH (11:03)
--- NOTE | 2020-11-20 11:12 | NUR ---
PT'S BP 170/104. WILL MEDICATE PT.
[2020-11-20] MEDS: BUDESONIDE 0.5 MG/2 ML AMPUL.NEB INH SCH ×2 (11:24→19:41)
--- NOTE | 2020-11-20 11:39 | NUR ---
Nutrition F/U Admitting Diagnosis: Right Hip Fracture Medical History Comment: Pt w/: S/P Mechanical fall, Heavy use of ETOH recently elevated blood alcohol of 165, COPD, Hypothyroidism, Mild Leukocytosis, Anemia, Acute on chronic hypoxic respiratory failure per MD notes. PMH: COPD, Hypothyroidism. 11/11: MD notes: Sepsis 11/17: MD notes: ARF 2/2 VMN SARS-CoV-2 Ag Rapid 11/01 Negative Subjective information: Pt is POD 2 S/P trach and PEG (11/18). Pt was seen in ICU, intubated on vent. EN infusing at 40ml/hr during visit. Per EMR, abdomen is soft w/ active bowel sounds, last BM 11/17 x1. Shay scale: 14, was seen by destination specialist on 11/14 and noted that pt w/ multiple skin tears. Per RN notes, 2+ pitting edema to BLE and left arm. EN rate: 40ml (11/20); GRV: 0ml (11/20). RD s/w pts primary RN who reported that propofol is currently at 5mcg/kg/min and plan is to get pt off propofol today. RD verified D5% IV infusing at 50ml/hr. Current EN order of 60ml/hr will provide excessive calories once EN infusion rate reached its goal. RD to rec new goal rate based on estimated nutrient needs. Current Diet Order/Nutrition Support: Glucerna 1.2 at 60ml/hr (goal rate), FWF 0 via GT (11/19) Pertinent Medications: Synthroid, Nephrovite, Insulin, Solu-medrol, Heparin, reglan, Protonix IV, Norepinephrine, D5%/NaCl IV at 50ml/hr (204 kcal/day) Pertinent Labs: 11/20: WBC 29.2H, BG 170H, POC BG 130H, BUN 42H, Cre 1.25WNL. Height: 5 feet 9.00 inches Weight: (11/14) (11/01/20) 127 pounds/ 57.789391 kilograms. (11/10) 116#/ 52.8kg --stable as of 11/20 BMI: (11/14) (11/01/20) 18.75 kg/m2. BMI (11/10): 17.2 kg/m2. (Pt is underweight) NEW Estimated Energy Expenditure (kcals/day) 1435 kcal/day (PSU for vent, Temp: 99'F; Ve:9.5) Estimated Protein Required (g/day) 73-88gm/day (1-1.2 gm/kg IBW for wt gain promotion, wound healing) Estimated Fluid Required (l/day) Per MD (ARF) Problem/Etiology/Signs/Symptoms Inadequate oral intake r/t respiratory distress AEB NPO status and pt is on venti mask. 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 (*modified) Altered nutrition related labs r/t renal dysfunction AEB BUN, Cre labs. (*improving) Altered nutrition related labs r/t medication interaction AEB elevated BG and steroid therapy. (*ongoing) Expected Outcomes/Goals Monitor EN tolerance and intake w/ goal of pt meeting more than 75% of estimated nutritional needs, labs trending WNL, normal GI function, skin integrity/wt maintenance. Dietitian Recommendations *Recommend: Glucerna 1.2 at 50ml/hr (new goal), FWF per physician via GT Provides: 1440 kcal, 72gm protein and 966ml fluids daily. Meets: 112% of estimated calorie needs and 82% of upper end of estimated protein needs. Follow Up High Risk: F/U in 2-3days
--- NOTE | 2020-11-20 11:48 | NUR ---
Dietitian Recommendations *Recommend: Glucerna 1.2 at 50ml/hr (new goal), FWF per physician via GT Provides: 1440 kcal, 72gm protein and 966ml fluids daily. Meets: 112% of estimated calorie needs and 82% of upper end of estimated protein needs. Please see Nutrition F/U note for details. HASMUKH, RD
[2020-11-20] MEDS: PIPERACILLIN/TAZO 2.25G/DEX-IS 50 ML IV SCH ×3 (12:01→23:39)
[2020-11-20] MEDS: hydrALAZINE HCL 20 MG/ML VIAL IVP PRN ×2 (13:13→22:54)
[2020-11-20] MEDS: LORazepam 2 MG/ML VIAL IM PRN ×2 (14:51→22:55)
[2020-11-20] MEDS: INSULIN REGULAR, HUMAN 100 UNITS/ML, 10 ML VIAL (humuLIN R) SUBCUT PRN ×2 (17:44)
--- NOTE | 2020-11-20 19:30 | NUR ---
INITIAL NOTE PATIENT IS IN BED AGITATED. EDUCATED PATIENT. PATIENT IS ON VENT AND TUBE FEEDING. CALL LIGHT IN REACH. PATIENT FAILED TO USE CALL LIGHT. WILL CONTINUE TO MONITOR. BED IS LOCKED, ALARMED, AND ATT HE LOWEST POSITION. FALL, SAFETY, ASPIRATION, AND RESPIRATORY PRECAUTIONS WILL BE IN PLACE THROUGHOUT THE SHIFT. PATIENT IS ON RESTRAINTS. PLAN OF CARE IS DISCUSSED WITH PATIENT.
[2020-11-20] MEDS: MORPHINE 2 MG/ML INJ. SYRINGE IVP PRN (21:32)
[2020-11-21] VITALS (35 sets, daily range): BP systolic 134–176
[2020-11-21] MEDS: LABETALOL 100 MG/ 20ML VIAL IVP SCH ×6 (00:52→22:18)
[2020-11-21] MEDS: IPRATROPIUM/ALBUTEROL SULFATE 3 ML AMPUL.NEB (DUONEB) INH SCH ×6 (03:19→23:39)
[2020-11-21] MEDS: PIPERACILLIN/TAZO 2.25G/DEX-IS 50 ML IV SCH ×4 (05:16→23:24)
[2020-11-21] MEDS: METOCLOPRAMIDE HCL 10 MG/2 ML VIAL IVP SCH ×3 (05:16→22:17)
[2020-11-21] MEDS: INSULIN REGULAR, HUMAN 100 UNITS/ML, 10 ML VIAL (humuLIN R) SUBCUT PRN (05:17)
[2020-11-21] MEDS: LEVOTHYROXINE SODIUM 0.075 MG TABLET PO SCH (06:00)
--- NOTE | 2020-11-21 07:14 | NUR ---
closing note sbar report endorsed to am nurse.
[2020-11-21] MEDS: BUDESONIDE 0.5 MG/2 ML AMPUL.NEB INH SCH ×2 (07:18→19:34)
--- NOTE | 2020-11-21 07:20 | NUR ---
Opening notes, Received pt, pt continued to be on Trache to vent, no fever temp was 98.5F. no change in settings of vent. pt on SR, Tachypneic at 31 rr, o2 sat 93%, 50 cc of residual noted from the g-tube. Carl on draining yellow urine. iv fluids running via picc. dressing of which is CDI. will cont to monitor pt.
--- NOTE | 2020-11-21 07:40 | NUR ---
PLACED ON CPAP 5, PS 8 POST HHN TX. SPO2 94%, HR 82. SPONTANEOUS RR 20, VT 580ML. ZIGGY ALBERTO.
--- NOTE | 2020-11-21 07:58 | NUR ---
DR MCCANN SEEN PT.
[2020-11-21] MEDS: methylPREDNISolone SOD SUCC 40 MG/ML VIAL IVP SCH ×2 (08:04→22:26)
[2020-11-21] MEDS: PANTOPRAZOLE SODIUM 40 MG/VIAL (PROTONIX) IVP SCH ×2 (08:04→22:18)
[2020-11-21] MEDS: HEPARIN SODIUM,PORCINE 5,000 UNITS/ML VIAL SUBCUT SCH ×2 (08:06→22:23)
[2020-11-21] MEDS: METOPROLOL TARTRATE 50 MG TABLET PO SCH ×3 (08:12→22:25)
[2020-11-21] MEDS: NEPHROVITE, (FOLIC ACID/VITAMIN B COMP W-C 1 TAB) NG SCH (08:12)
[2020-11-21] MEDS: D5NS 1,000 ML IV SCH (10:13)
[2020-11-21 10:17] LABS: BASOPHILS # (AUTO) 0.2 K/uL (0.0-0.2); BASOPHILS % (AUTO) 0.7 % (0.0-2.0); HEMATOCRIT 31.2 % (36-54); HEMOGLOBIN 10.3 g/dL (14.0-18.0); LYMPHOCYTES # (AUTO) 0.3 K/uL (1.0-5.5); LYMPHOCYTES % (AUTO) 1.5 % (20.5-51.5); MEAN CORPUSCULAR HEMOGLOBIN 31 pg (27-31); MEAN CORPUSCULAR HGB CONC 33 % (32-36); MEAN CORPUSCULAR VOLUME 93 fL (79.0-98.0); MONOCYTES # (AUTO) 0.9 K/uL (0.0-1.0); MONOCYTES % (AUTO) 4.3 % (1.7-9.3); NEUTROPHILS # (AUTO) 20.5 K/uL (1.8-7.7); NEUTROPHILS % (AUTO) 93.5 % (40.0-70.0); PLATELET COUNT (AUTO) 146 K/uL (130-430); RED BLOOD CELL COUNT(AUTO) 3.37 MIL/uL (4.2-6.2); RED CELL DISTRIBUTION WIDTH 15.6 % (9.0-15.0); WHITE BLOOD COUNT (AUTO) 21.9 K/uL (4.8-10.8)
--- NOTE | 2020-11-21 11:55 | NUR ---
TRANSFER ORDER TO TELEMETRY RECEIVED, PT ON TELEMETRY STATUS NOW. CONTINUING MONITOR PT.
--- NOTE | 2020-11-21 12:00 | NUR ---
PT IS QUITE TODAY, OPENS EYES SPONTANEOUSLY, DOES NOT FOLLOW COMMAND. BP / VITALS MONITORING. TRANDATE GIVEN SCHEDULE TO KEEP THE BP UNDER CONTROL. WILL TRANSFER TO TELEMETRY WHEN BED IS AVAILABLE.
--- NOTE | 2020-11-21 15:50 | NUR ---
PLACED BACK TO AC18, VT450, PEEP +5, FIO2 40% DUE TO PT VOMITED. SUCTIONED, CLEANED TRACH, AND CHANGED TIE AT THIS TIME. SPO2 95%, HR 94.
--- NOTE | 2020-11-21 16:00 | NUR ---
pt vomited, pt suction by errol herzog and yash panyda. , pt's vitals ie. bp and rr became elevated , pt given morphine.
[2020-11-21] MEDS: MORPHINE 2 MG/ML INJ. SYRINGE IVP PRN ×2 (16:22→23:20)
--- NOTE | 2020-11-21 17:00 | NUR ---
PAGED DR SCHMIDT TO INFORM ABT PT'S STATUS AND GET ZOFRAN ORDER.
--- NOTE | 2020-11-21 17:51 | NUR ---
DR ARCHULETA UPDATED WITH PT'S STATUS, PT VERY GRUGLY AND RR ELEVATED. NEW ORDERS GIVEN AND CARRIED OUT.
--- NOTE | 2020-11-21 19:07 | NUR ---
CLOSING NOTES, PT'S TRANSFER TO TELE HELD DUE TO INCREASE RR AND GURGLY BREATH SOUNDS AFTER PT VOMITED. STAT CHEST XRAY DONE. UNTIL THIS TIME, RR IS STILL ELEVATED. WILL ENDROSE TO NIGHT NURSE.
--- NOTE | 2020-11-21 19:15 | NUR ---
Pt report received. Pt Trach to Vent, Vent settings: A/C, 18, 450, 40%, 5. PICC RUE secure and patent with D5NS at 50 mL/hr. PEG with dsg c/d/i, Glucerna 1.2 at 40 mL/hr, 40 mL residual. F/C draining yellow/cloudy urine. Anasarca with weeping to BUE. Multiple skin tears with dsgs in place. Bilat soft wrist restraints in place. VSS, NAD.
[2020-11-22] VITALS (34 sets, daily range): BP systolic 91–193
--- NOTE | 2020-11-22 01:37 | NUR ---
Informed Dr. Stoner of CXR results from previous shift. Pt to remain ICU status.
[2020-11-22] MEDS: LABETALOL 100 MG/ 20ML VIAL IVP SCH ×7 (02:16→21:07)
[2020-11-22] MEDS: LORazepam 2 MG/ML VIAL IM PRN ×3 (03:18→15:59)
[2020-11-22] MEDS: MORPHINE 2 MG/ML INJ. SYRINGE IVP PRN ×4 (03:19→23:25)
[2020-11-22] MEDS: IPRATROPIUM/ALBUTEROL SULFATE 3 ML AMPUL.NEB (DUONEB) INH SCH ×6 (03:53→23:34)
--- NOTE | 2020-11-22 04:20 | NUR ---
Temp 101.3. Tylenol 650 mg supp given.
[2020-11-22] MEDS: ACETAMINOPHEN 650 MG SUPP.RECT RC PRN (04:24)
[2020-11-22] MEDS: PIPERACILLIN/TAZO 2.25G/DEX-IS 50 ML IV SCH ×4 (05:34→23:19)
[2020-11-22] MEDS: METOCLOPRAMIDE HCL 10 MG/2 ML VIAL IVP SCH ×3 (05:35→21:06)
[2020-11-22 06:46] LABS: ALANINE AMINOTRANSFERASE 88 U/L (12-78); ALBUMIN 1.8 g/dL (3.4-4.8); ANION GAP 10 (5-15); ASPARTATE AMINOTRANSFERASE 65 U/L (10-37); CALCIUM 8.6 mg/dL (8.4-11.0); CHLORIDE 111 mmol/L (98-107); CREATININE 1.23 mg/dL (0.55-1.30); GLUCOSE 140 mg/dL (70-99); POTASSIUM 4.3 mmol/L (3.5-5.1); SODIUM SERUM 142 mmol/L (136-145); TOTAL BILIRUBIN 1.5 mg/dL (0.0-1.0); UREA NITROGEN, BLOOD 42 mg/dL (8-21)
[2020-11-22 06:54] LABS: BASOPHILS % (AUTO) 0.2 % (0.0-2.0); HEMATOCRIT 30.9 % (36-54); HEMOGLOBIN 10.2 g/dL (14.0-18.0); LYMPHOCYTES # (AUTO) 0.3 K/uL (1.0-5.5); LYMPHOCYTES % (AUTO) 1.7 % (20.5-51.5); MEAN CORPUSCULAR HEMOGLOBIN 30 pg (27-31); MEAN CORPUSCULAR HGB CONC 33 % (32-36); MEAN CORPUSCULAR VOLUME 92 fL (79.0-98.0); MONOCYTES # (AUTO) 1.1 K/uL (0.0-1.0); MONOCYTES % (AUTO) 5.7 % (1.7-9.3); NEUTROPHILS # (AUTO) 17.5 K/uL (1.8-7.7); NEUTROPHILS % (AUTO) 92.4 % (40.0-70.0); PLATELET COUNT (AUTO) 173 K/uL (130-430); RED BLOOD CELL COUNT(AUTO) 3.37 MIL/uL (4.2-6.2); RED CELL DISTRIBUTION WIDTH 15.5 % (9.0-15.0); WHITE BLOOD COUNT (AUTO) 18.9 K/uL (4.8-10.8)
[2020-11-22] MEDS: BUDESONIDE 0.5 MG/2 ML AMPUL.NEB INH SCH ×2 (07:10→20:48)
--- NOTE | 2020-11-22 07:15 | NUR ---
Pt report given to oncoming RN. Pt resting quietly, VSS, NAD.
[2020-11-22] MEDS: LEVOTHYROXINE SODIUM 0.075 MG TABLET PO SCH (07:44)
--- NOTE | 2020-11-22 08:00 | NUR ---
Patient is not awake. On vent, A/C 18, Vt 450, FiO2 40%, PEEP 5. PICC RUE secure and patent with D5NS at 50 mL/hr. P Glucerna 1.2 at 40 mL/hr, 80 mL residual. F/C draining yellow/cloudy urine. Anasarca with weeping at BUE. Bilat soft wrist restraints in place. Call light in place, bed locked at the lowest position, will continue to monitor.
[2020-11-22] MEDS: PANTOPRAZOLE SODIUM 40 MG/VIAL (PROTONIX) IVP SCH ×2 (08:26→21:06)
[2020-11-22] MEDS: methylPREDNISolone SOD SUCC 40 MG/ML VIAL IVP SCH (08:27)
[2020-11-22] MEDS: NEPHROVITE, (FOLIC ACID/VITAMIN B COMP W-C 1 TAB) NG SCH (08:27)
[2020-11-22] MEDS: METOPROLOL TARTRATE 50 MG TABLET PO SCH ×3 (08:28→21:07)
[2020-11-22] MEDS: HEPARIN SODIUM,PORCINE 5,000 UNITS/ML VIAL SUBCUT SCH ×2 (08:30→21:08)
--- NOTE | 2020-11-22 09:23 | NUR ---
RT NOTES Dr Gannon at bedside made aware that CPAP trial was not started due reports of possible aspiration and fever overnight. Rn was at bedside as well.
--- NOTE | 2020-11-22 09:45 | NUR ---
Temp 101.2. Dr. Gannon is at bedside, and requested PO Tylenol.
[2020-11-22] MEDS: ACETAMINOPHEN 325 MG TABLET PO PRN ×3 (09:46→23:26)
--- NOTE | 2020-11-22 12:12 | NUR ---
SBPs at 80-90s. Dr. Gannon is informed. Order is given.
[2020-11-22] MEDS ORDERED: NS 500 ML IV ONE (12:15)
--- NOTE | 2020-11-22 13:10 | NUR ---
RT NOTES FIO2 to 0.50 due low saturation. Improved to 96%.
[2020-11-22] MEDS: D5NS 1,000 ML IV SCH (15:14)
--- NOTE | 2020-11-22 16:01 | NUR ---
Nutrition F/U Admitting Diagnosis: Right Hip Fracture Medical History Comment: Pt w/: S/P Mechanical fall, Heavy use of ETOH recently elevated blood alcohol of 165, COPD, Hypothyroidism, Mild Leukocytosis, Anemia, Acute on chronic hypoxic respiratory failure per MD notes. PMH: COPD, Hypothyroidism. 11/11: notes: Sepsis 11/17: MD notes: ARF 2/2 VMN SARS-CoV-2 Ag Rapid 11/[address] note: Pt S/P trach and PEG (11/18). Per MD notes, pt remains unresponsive on vent. Observed pt via bedside, pt having jerking movements of head and neck.. Per pts primary RN, GRV was 100 cc. TF was stopped due to high residuals. Per pts primary RN, the pt aspirated stomach contents yesterday. Pts nurse will resume feedings and if residual is more than 100 mL, tube feeding will be stopped per pts RN. TF will continue if GRV < 100 mL per pts nurse. Nurse to check residuals every hour. Pt weighed at time of visit via bedscale. Current Diet Order/Nutrition Support: Glucerna 1.2 at 50ml/hr (goal rate), FWF 0 mL via GT (11/20) Pertinent Medications: Synthroid, Nephrovite, Insulin, Solu-medrol, Heparin, reglan, Protonix IV, Norepinephrine, D5%/NaCl IV at 50ml/hr (204 kcal/day) Pertinent Labs: 11/22: H/H: 10.2/30.9L, Cl: 111H, C02: 21L, BUN: 42H, glucose: 140H Skin: Shay 11, R elbow skin tear, R knee skin tear, L leg dry scab, L arm skin tear, L hand ecchymosis, sacrum scar GI: soft non-distended, active bowel sounds, last BM: 11/21 Height: 5 feet 9.00 inches Weight: (11/22): 138.2 lbs, 62.8 kg (observed pt had 2 pillows and multiple sheets on bed) (11/01/20) 127 pounds/ 57.234351 kilograms. (11/10) 116#/ 52.8kg BMI: (11/22): 20.3 kg/m2 (current BMI appropriate) (11/01/20) 18.75 kg/m2. BMI (11/10): 17.2 kg/m2. (underweight status) NEW Estimated Energy Expenditure (kcals/day) 1435 kcal/day (PSU for vent, Temp: 99'F; Ve:9.5) Estimated Protein Required (g/day) 73-88gm/day (1-1.2 gm/kg IBW for wt gain promotion, wound healing) Estimated Fluid Required (l/day) Per MD (ARF) Problem/Etiology/Signs/Symptoms Inadequate oral intake r/t respiratory distress AEB NPO status and pt is on venti mask. 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 (*modified) Altered nutrition related labs r/t renal dysfunction AEB BUN, Cre labs. (*improving) Altered nutrition related labs r/t medication interaction AEB elevated BG and steroid therapy. (*ongoing) Expected Outcomes/Goals Monitor EN tolerance and intake w/ goal of pt meeting more than 75% of estimated nutritional needs, labs trending WNL, normal GI function, skin integrity/wt maintenance. Dietitian Recommendations *Recommend infusing EN at 20-40 mL/hr at this time due to pt not tolerating EN. When EN is started again, recommend starting at 10 mL/hr, advance by 10 mL Q8H, as tolerated until 20-40 mL/hr achieved. Recommend advancing to goal of 50 mL/hr, as tolerated and if medically appropriate. FWF per physician via GT. Provides (at goal rate): 1440 kcal, 72gm protein and 966ml fluids daily. Meets: 112% of estimated calorie needs and 82% of upper end of estimated protein needs. Follow Up High Risk: F/U in 2-3days KW, RD
--- NOTE | 2020-11-22 16:04 | NUR ---
Dietitian Recommendations *Recommend infusing EN at 20-40 mL/hr at this time due to pt not tolerating EN. When EN is started again, recommend starting at 10 mL/hr, advance by 10 mL Q8H, as tolerated until 20-40 mL/hr achieved. Recommend advancing to goal of 50 mL/hr, as tolerated and if medically appropriate. FWF per physician via GT. Provides (at goal rate): 1440 kcal, 72gm protein and 966ml fluids daily. Meets: 112% of estimated calorie needs and 82% of upper end of estimated protein needs. KW, RD
--- NOTE | 2020-11-22 18:00 | NUR ---
BS at 140.
--- NOTE | 2020-11-22 20:00 | NUR ---
INITIAL NOTE PATIENT IS IN BED. PT IN ON VENT. CALL LIGHT IN REACH. PATIENT UNSUCCESSFULLY DEMONSTRATES USAGE OF CALL LIGHT. WILL CONTINUE TO MONITOR. BED IS LOCKED, ALARMED, AND AT THE LOWEST POSITION. FALL, SAFETY, ASPIRATION, AND RESPIRATORY PRECAUTIONS WILL BE IN PLACE THROUGHOUT THE SHIFT. PLAN OF CARE IS DISCUSSED WITH THE PATIENT.
[2020-11-23] VITALS (33 sets, daily range): BP systolic 96–179
[2020-11-23] MEDS: LABETALOL 100 MG/ 20ML VIAL IVP SCH ×6 (02:23→20:22)
[2020-11-23] MEDS: IPRATROPIUM/ALBUTEROL SULFATE 3 ML AMPUL.NEB (DUONEB) INH SCH ×6 (03:19→23:32)
--- NOTE | 2020-11-23 04:16 | NUR ---
COMMUNICATED WITH DR. PADGETT ABOUT CRITICAL LAB VALUES. ORDERS GIVEN. WILL FOLLOW THROUGH.
--- NOTE | 2020-11-23 04:16 | NUR ---
MD ÁNGEL PADGETT CRITICAL LAB VALUES [phone] SPOKE WITH DAVID
[2020-11-23] MEDS: PIPERACILLIN/TAZO 2.25G/DEX-IS 50 ML IV SCH ×4 (05:26→23:46)
[2020-11-23] MEDS: METOCLOPRAMIDE HCL 10 MG/2 ML VIAL IVP SCH ×3 (05:26→21:27)
[2020-11-23] MEDS: D5NS 1,000 ML IV SCH (06:01)
[2020-11-23] MEDS: LEVOTHYROXINE SODIUM 0.075 MG TABLET PO SCH (06:01)
[2020-11-23 06:16] LABS: BASOPHILS % (AUTO) 0.2 % (0.0-2.0); HEMATOCRIT 31.3 % (36-54); HEMOGLOBIN 10.4 g/dL (14.0-18.0); LYMPHOCYTES # (AUTO) 0.7 K/uL (1.0-5.5); LYMPHOCYTES % (AUTO) 4.2 % (20.5-51.5); MEAN CORPUSCULAR HEMOGLOBIN 31 pg (27-31); MEAN CORPUSCULAR HGB CONC 33 % (32-36); MEAN CORPUSCULAR VOLUME 93 fL (79.0-98.0); MONOCYTES # (AUTO) 1.5 K/uL (0.0-1.0); MONOCYTES % (AUTO) 9.3 % (1.7-9.3); NEUTROPHILS % (AUTO) 86.3 % (40.0-70.0); PLATELET COUNT (AUTO) 155 K/uL (130-430); RED BLOOD CELL COUNT(AUTO) 3.37 MIL/uL (4.2-6.2); RED CELL DISTRIBUTION WIDTH 15.4 % (9.0-15.0); WHITE BLOOD COUNT (AUTO) 16.2 K/uL (4.8-10.8)
--- NOTE | 2020-11-23 07:01 | NUR ---
CLOSING NOTE SBAR REPORT ENDORSED TO AM NURSE.
--- NOTE | 2020-11-23 07:05 | NUR ---
RT NOTES FIO2 to 0.45 per titration order. Per report, pt is running a temp. unable to do CPAP trial at this time. Fever confirmed with RN.
[2020-11-23] MEDS: BUDESONIDE 0.5 MG/2 ML AMPUL.NEB INH SCH ×2 (07:08→19:31)
[2020-11-23 07:18] LABS: ANION GAP 11 (5-15); CALCIUM 8.5 mg/dL (8.4-11.0); CHLORIDE 111 mmol/L (98-107); CREATININE 1.26 mg/dL (0.55-1.30); GLUCOSE 117 mg/dL (70-99); PHOSPHORUS 2.6 mg/dL (2.7-4.5); POTASSIUM 4.3 mmol/L (3.5-5.1); SODIUM SERUM 143 mmol/L (136-145); UREA NITROGEN, BLOOD 39 mg/dL (8-21)
--- NOTE | 2020-11-23 07:32 | NUR ---
Patient is not awake. On vent, A/C 18, Vt 450, FiO2 45%, PEEP 5. PICC RUE secure and patent with D5NS at 50 mL/hr. P Glucerna 1.2 at 40 mL/hr, 60 mL residual. F/C draining yellow/cloudy urine. Anasarca with weeping at BUE. Bilat soft wrist restraints in place. Call light in place, bed locked at the lowest position, will continue to monitor.
[2020-11-23 07:44] LABS: C-REACTIVE PROTEIN QUANT 6.3 mg/dL (0-0.5)
[2020-11-23 07:45] LABS: ERYTHROCYTE SEDIMENTATION RATE 30 MM/HR (0-15)
[2020-11-23] MEDS: NEPHROVITE, (FOLIC ACID/VITAMIN B COMP W-C 1 TAB) NG SCH (08:06)
[2020-11-23] MEDS: PANTOPRAZOLE SODIUM 40 MG/VIAL (PROTONIX) IVP SCH ×2 (08:06→20:17)
[2020-11-23] MEDS: ACETAMINOPHEN 325 MG TABLET PO PRN (08:07)
[2020-11-23] MEDS: HEPARIN SODIUM,PORCINE 5,000 UNITS/ML VIAL SUBCUT SCH ×2 (08:08→20:24)
[2020-11-23] MEDS: MICAFUNGIN SODIUM 100 MG in NS 100 ML IV SCH (08:10)
[2020-11-23] MEDS: METOPROLOL TARTRATE 50 MG TABLET PO SCH ×3 (09:00→20:23)
--- NOTE | 2020-11-23 10:00 | NUR ---
ASSUMED CARE: ASSUMED CARE FROM HILARIO. PATIENT MAINTAINED AN FIO2=40%,O2 SATURATION=95%. TUBE FEED WAS HELD DUE TO LARGE AMOUNT OF RESIDUALS. WILL RECHECKED RESIDUALS AFTER 1 HOUR. RIGHT UPPER ARM IV FLUIDS RUNNING WELL.BILATERAL UPPER ARM WEEPING NOTED.CARE RENDERED.CONTINUE TO MONITOR.
[2020-11-23] MEDS: MORPHINE 2 MG/ML INJ. SYRINGE IVP PRN (10:11)
--- NOTE | 2020-11-23 10:50 | NUR ---
RT NOTES Was called to the unit per Dr Gannon's request, found dr in med-surg. stated that pt. looks uncomfortable/in distress, was made aware that pt had been tachypneic. stated for RT to remind RN regarding sedation w/c she already spoke to the nurse about. @1058 Spoke to RN, confirmed that she spoke to dr gannon regarding sedation.
[2020-11-23] MEDS ORDERED: LORazepam 2 MG/ML VIAL IVP PRN (11:15)
--- NOTE | 2020-11-23 11:16 | NUR ---
MD Gannon at bedside assessing patient, new order to renew original Ativan order of 2 mg IVP every 6 hours as needed for agitation or anxiety. Orders placed.
[2020-11-23] MEDS ORDERED: LORazepam 2 MG/ML VIAL ONE (11:22)
--- NOTE | 2020-11-23 11:53 | NUR ---
MD Gannon called facility, new order to change Ativan order to 1 mg every 2 hours as needed for agitation or anxiety. Orders placed.
[2020-11-23] MEDS ORDERED: NA PHOS 15 MM in NS 250 ML IV ONE (12:00)
[2020-11-23] MEDS: LORazepam 2 MG/ML VIAL IVP PRN ×3 (13:25→18:07)
--- NOTE | 2020-11-23 19:15 | NUR ---
change of shift.pt.presents trach intact.vent settings;tv;450,fio2%=40,a/c;18,peep:5.pt.presents picc line;intact location rt/bicept.iv fluids infusing.pt.presents g-tube;intact g-tube feed infusing:glucerna;1.5;ratye;40ml/hr..pt.presents banegas cath intact urine content present.restraints:wrist;bilateral in place.skin/circulation wnl.general status stale.respiratory status status stable: 02-sat%=96%.call light w/in access of the pt.
--- NOTE | 2020-11-23 19:17 | NUR ---
END OF SHIFT: ENDORSEMENT GIVEN TO VANITA THURMAN NURSE.ON MECHANICAL VENTILATOR,PATIENT MAINTAINED FIO2=40%,SEE [facility] FOR SETTINGS. RIGHT UPPER ARM PICC LINE ,IV FLUIDS RUNNING WELL. TUBE FEEDS ON GOING. GARCIA IN SITU. BILATERAL SCD'S ON LE. SAFETY MEASURES RENDERED. IV ATIVAN GIVEN PRN FOR AGITATION EVERY 2 HOURS ORDERED. STABLE.
--- NOTE | 2020-11-23 20:00 | NUR ---
pt.assessed.v/s assessed note b/p status.trach intact.i have attended to the oral/trach care/suction.picc line intact iv fluids infusing.banegas cath intact urine content present.restraints wrist;bilateral in place.skin/circulation wnl.pt.assessed for cleanliness. pt.repositioned.general status stable.respiratory status stable:02-sat%=96%.call light placed w/in access of the pt. Addendum: 11/23/20 at 2308 by Adonay Zelaya RN per flacc pain mgx pt.absent facial grimaces/body posturing.
--- NOTE | 2020-11-23 21:00 | NUR ---
2100pmedications administered.lopressor/labetalol administered note b/p status.i have noted the g-tube feed residuals; elevated.i i have held the g-tube feed.per flacc pain mgx pt.absent facial grimaces/body posturing.
--- NOTE | 2020-11-23 22:00 | NUR ---
pt.assessed.v/s assessed values note b/p status wnl.trach intact.i have attended to the oral/trach care/suction.picc line intact iv fluids infusing.banegas cath intact urine content present.restraints;wrist;bilateral in place.skin/circulaltion wnl.pt.assessed foe cleanliness.pt.repositioned.general status stable.respiratory status stable:o2-sat%=96%.call light placed w/in access of the pt. Addendum: 11/23/20 at 2309 by Adonay Zelaya RN per flacc pain mgx pt.absent facial grimaces/body posturing.
[2020-11-24] VITALS (21 sets, daily range): BP systolic 113–164
--- NOTE | 2020-11-24 | NUR ---
pt.assessed.v/s assessed values wnl.note b/p status.trach intact.i have attended to the oral/trach care/suction.picc line intact iv fluids infusing.i have administered zosyn;abx ivpb midnight dose.blood glucose assessed value;94mg/dl.g-tube intact g-tube feed infusing.banegas cath intact urine content present.restraints wrist bilateral in place skin/circulation wnl.per flacc pain mgx pt. absent facial grimaces/body posturing.general status stable.respiratory status stable.02-sat%=96%.pt.assessed for cleanliness pt.repositioned.call light placed w/in access of the pt.
[2020-11-24] MEDS: LABETALOL 100 MG/ 20ML VIAL IVP SCH ×6 (00:23→21:00)
--- NOTE | 2020-11-24 02:00 | NUR ---
pt.assessed.v/s assessed values wnl.trach intact i have attended to oral/trach care/suction.picc line intact iv fluids infusing . g-tube intact g-tube feed infusing.banegas cath intact urine content present.per flacc pain mgx pt.absent facial grimaces/body posturing.pt.assessed for cleanliness pt.repositioned.general status stable.respiratory status stable;o2-sat%=96%.RESTRAINTS WRIST IN PLaCE SkIN/ CIrCUlATIOn WNL.call light placed w/in access of the pt.
--- NOTE | 2020-11-24 04:00 | NUR ---
pt.assessed.v/s assessed values wnl.trach intact.i have attended to the oral/trach care/suction.picc line intact iv fluids infusing. g-tube intact g-tube feed.infusing.banegas cath intact urine content present.per flacc pain mgx pt.absent facial grimaces/body posturing.general status stable.respiratory status stable.02-sat%=96%.restraints wrist bilateral in place skin/circulation wnl.call light plalced w/in access of the pt.
[2020-11-24] MEDS: IPRATROPIUM/ALBUTEROL SULFATE 3 ML AMPUL.NEB (DUONEB) INH SCH ×5 (04:11→23:00)
[2020-11-24] MEDS: PIPERACILLIN/TAZO 2.25G/DEX-IS 50 ML IV SCH ×3 (05:47→18:02)
[2020-11-24] MEDS: D5NS 1,000 ML IV SCH (05:48)
[2020-11-24] MEDS: LEVOTHYROXINE SODIUM 0.075 MG TABLET PO SCH (05:54)
[2020-11-24] MEDS: METOCLOPRAMIDE HCL 10 MG/2 ML VIAL IVP SCH ×3 (05:54→22:32)
[2020-11-24 06:26] LABS: BASOPHILS % (AUTO) 0.2 % (0.0-2.0); EOSINOPHILS # (AUTO) 0.1 K/uL (0.0-0.4); EOSINOPHILS % (AUTO) 0.9 % (0.0-4.0); HEMATOCRIT 31.9 % (36-54); HEMOGLOBIN 10.5 g/dL (14.0-18.0); LYMPHOCYTES # (AUTO) 0.8 K/uL (1.0-5.5); LYMPHOCYTES % (AUTO) 6.4 % (20.5-51.5); MEAN CORPUSCULAR HEMOGLOBIN 30 pg (27-31); MEAN CORPUSCULAR HGB CONC 33 % (32-36); MEAN CORPUSCULAR VOLUME 92 fL (79.0-98.0); MONOCYTES # (AUTO) 0.9 K/uL (0.0-1.0); MONOCYTES % (AUTO) 7.5 % (1.7-9.3); NEUTROPHILS # (AUTO) 10.8 K/uL (1.8-7.7); PLATELET COUNT (AUTO) 136 K/uL (130-430); RED BLOOD CELL COUNT(AUTO) 3.46 MIL/uL (4.2-6.2); RED CELL DISTRIBUTION WIDTH 15.5 % (9.0-15.0); WHITE BLOOD COUNT (AUTO) 12.7 K/uL (4.8-10.8)
--- NOTE | 2020-11-24 06:30 | NUR ---
pt.assessed.v/s assessed values wnl:note b/p status.trach intact i have attended to oral trach care/suction.g-tube intact g-tube feed resumed residuals noted:10ml.restraints in place.skin.circulation wnl.picc line intact iv fluids infusing.pt.assessed for cleanliness.pt.cleaned/repositioned.i have attended to the picc line changes.wound care changed.general status stable. respiratory status stable.02-sat%=96%.call light placed w/in access of the pt. Addendum: 11/26/20 at 1933 by Adonay Zelaya RN i have attended to the g-tube dsg changed.
[2020-11-24 06:37] LABS: ALANINE AMINOTRANSFERASE 78 U/L (12-78); ALBUMIN 1.6 g/dL (3.4-4.8); ANION GAP 10 (5-15); ASPARTATE AMINOTRANSFERASE 69 U/L (10-37); CALCIUM 7.9 mg/dL (8.4-11.0); CHLORIDE 110 mmol/L (98-107); CREATININE 1.16 mg/dL (0.55-1.30); GLUCOSE 80 mg/dL (70-99); PHOSPHORUS 2.7 mg/dL (2.7-4.5); POTASSIUM 3.7 mmol/L (3.5-5.1); SODIUM SERUM 143 mmol/L (136-145); TOTAL BILIRUBIN 1.2 mg/dL (0.0-1.0); UREA NITROGEN, BLOOD 32 mg/dL (8-21)
[2020-11-24] MEDS: LORazepam 2 MG/ML VIAL IVP PRN ×2 (08:10→14:06)
[2020-11-24] MEDS: NEPHROVITE, (FOLIC ACID/VITAMIN B COMP W-C 1 TAB) NG SCH (08:17)
[2020-11-24] MEDS: PANTOPRAZOLE SODIUM 40 MG/VIAL (PROTONIX) IVP SCH ×2 (08:17→22:32)
[2020-11-24] MEDS: METOPROLOL TARTRATE 50 MG TABLET PO SCH ×3 (08:18→22:29)
[2020-11-24] MEDS: HEPARIN SODIUM,PORCINE 5,000 UNITS/ML VIAL SUBCUT SCH ×2 (08:28→22:31)
[2020-11-24] MEDS: MICAFUNGIN SODIUM 100 MG in NS 100 ML IV SCH (08:30)
[2020-11-24 08:49] LABS: C-REACTIVE PROTEIN QUANT 6.4 mg/dL (0-0.5)
--- NOTE | 2020-11-24 09:26 | NUR ---
INCREASED RR; DR MUNOZ WAS HERE AT AROUND 0800, MD AWARE OF INCREASED RR. ATIVAN GIVEN AT 0810AM, DID NOT WORK AT THIS TIME (925) DR MUNOZ MADE AWARE OF THE ABG RESULT, INFORMED MD THAT RR STILL ELEVATED. MD SAID PT NEEDS BETTER SEDATION. NO NEW ORDERS. WILL MEDICATE PT WITH MORPHINE.
[2020-11-24] MEDS: MORPHINE 2 MG/ML INJ. SYRINGE IVP PRN (09:37)
--- NOTE | 2020-11-24 09:37 | NUR ---
morphine given: 1 mg morphine given for incrased rr rate.
--- NOTE | 2020-11-24 11:00 | NUR ---
RR ELEVATED AGAIN; PT'S RR RATE IS AT 35 THIS TIME, AFTER ATIVAN AND MS GIVEN THE RR RATED WENT DOWN TO 25 BPM BUT DID NOT LAST FOR LONG TIME. PT APPEARS SLEEPING AT THIS TIME.
[2020-11-24 11:22] LABS: ERYTHROCYTE SEDIMENTATION RATE 25 MM/HR (0-15)
--- NOTE | 2020-11-24 12:00 | NUR ---
TRANSFER ORDER TO TELEMETRY RECEIVED, PT ON TELEMETRY STATUS NOW. CONTINUE MONITORING PT.
--- NOTE | 2020-11-24 14:09 | NUR ---
ATIVAN GIVEN FOR ELEVATED RR.
[2020-11-24] MEDS ORDERED: MORPHINE 4 MG INJ. 4 MG/ML VIAL IVP PRN (14:45)
[2020-11-24] MEDS ORDERED: LORazepam 2 MG/ML VIAL IVP PRN (14:45)
--- NOTE | 2020-11-24 15:50 | NUR ---
transfer from ICU Received SBAR FROM ZIGGY LIMON. PRECAUTIONS IN PLACE. WILL CONTINUE WITH CARE.
--- NOTE | 2020-11-24 16:10 | NUR ---
PT TRANSFERRED TO TELEMETRY. ORDERED BY DR SCHMIDT, PT WAS TRANSFERRED TO ROOM 110A , DR MUNOZ WAS AWARE. TELEPHONE AND BEDSIDE REPORT GIVEN TO ZIGGY NYE. ENDORSED TO ZIGGY IZAGUIRRE ABOUT THE NEW ORDERS FOR MORPHINE AND ATIVAN.
[2020-11-24] MEDS: BUDESONIDE 0.5 MG/2 ML AMPUL.NEB INH SCH ×2 (16:17→20:24)
--- NOTE | 2020-11-24 16:22 | NUR ---
1555 ASSISTED IN TRANSFERRING PT OUT TO [facility]. PT BACK ON VENT WILL CONT TO MONITOR. Addendum: 11/24/20 at 1622 by Aparna Henley RT Amended: Links added.
--- NOTE | 2020-11-24 18:55 | NUR ---
CLOSING NOTES: PATIENT RESTING IN BED. BREATHING EVEN AND NON LABORED. [facility] O[facility] WE[facility]. GT TUBE AND IV INFUSING WELL. GARCIA CATHETER SECURED AND DRAINING BY GRAVITY. FALL AND SAFETY PRECAUTION REINFORCED.
--- NOTE | 2020-11-24 20:30 | NUR ---
Opening notes Pt eyes closed, non verbal. Pt on mechanical ventilation. Oral/suction care provided. Jovanny wrists restraints on. IVF infusing at ordered rate BELIA PICC line, dressing C/D/I. GT feeding Glucerna 1.2 running. Carl catheter draining to gravity with errol urine. HOB maintained elevated. Pt on low air loss mattress. To monitor.
[2020-11-25] MEDS: PIPERACILLIN/TAZO 2.25G/DEX-IS 50 ML IV SCH ×2 (00:25→05:59)
[2020-11-25 00:47] VITALS: BP_SYST 148
[2020-11-25] MEDS: LABETALOL 100 MG/ 20ML VIAL IVP SCH ×3 (02:30→08:38)
--- NOTE | 2020-11-25 04:20 | NUR ---
Pericare/wound care Pt incontinent of BM, pericare provided. Z guard applied to periarea. L arm weeping dressing changed to L. arm/elbow/wrist. To monitor.
[2020-11-25] MEDS: IPRATROPIUM/ALBUTEROL SULFATE 3 ML AMPUL.NEB (DUONEB) INH SCH ×6 (05:43→23:12)
[2020-11-25] MEDS: METOCLOPRAMIDE HCL 10 MG/2 ML VIAL IVP SCH ×3 (05:59→21:36)
[2020-11-25] MEDS: LEVOTHYROXINE SODIUM 0.075 MG TABLET PO SCH (06:13)
[2020-11-25] MEDS: D5NS 1,000 ML IV SCH (06:20)
--- NOTE | 2020-11-25 06:30 | NUR ---
Closing notes Pt eyes closed, no changes in mechanical vent settings. BS checked 102. GT Glucerna increased to goal rate of 50cc/hr, no residual noted. Pt had a BM tolerated GT feeding well. HOB maintained elevated. IVF infusing at ordered rate BELIA PICC line dressing C/D/I. Carl catheter draining to gravitiy with errol urine. Bed low, locked siderails up x3, alarm on. Pt on low air mattress.
--- NOTE | 2020-11-25 07:44 | NUR ---
OPENING NOTE RECEIVED REPORT FROM NIGHT NURSE. PATIENT IS ON VENTILTOR, TOLERATING WELL WITH SETTINGS AT AC 18, TV 450, FIO2 35, PEEP 5.0. TOLERATING WELL. PICC LINE IN RIGHT UPPER ARM, INFUSING FLUIDS ORDERED. GARCIA CATHETER ATTACHED DRAINING BY GRAVITY. G TUBE FEEDINGS AT 50ML/ HR. TOLERATING WELL. BILATERAL WRIST RESTRAINTS IN PLACE. BED LOCKED AND IN LOWEST POSITION. CALL LIGHT WITHIN REACH. BED ALARM ON. WILL CONTINUE TO MONITOR.
[2020-11-25 08:00] VITALS: BP_SYST 136
[2020-11-25] MEDS: BUDESONIDE 0.5 MG/2 ML AMPUL.NEB INH SCH ×2 (08:31→19:10)
[2020-11-25] MEDS: NEPHROVITE, (FOLIC ACID/VITAMIN B COMP W-C 1 TAB) NG SCH (08:35)
[2020-11-25] MEDS: METOPROLOL TARTRATE 50 MG TABLET PO SCH ×3 (08:36→21:36)
[2020-11-25] MEDS: MICAFUNGIN SODIUM 100 MG in NS 100 ML IV SCH (08:36)
[2020-11-25] MEDS: PANTOPRAZOLE SODIUM 40 MG/VIAL (PROTONIX) IVP SCH (08:36)
[2020-11-25] MEDS: HEPARIN SODIUM,PORCINE 5,000 UNITS/ML VIAL SUBCUT SCH ×2 (08:38→21:39)
--- NOTE | 2020-11-25 09:19 | NUR ---
ATIVAN RESPIRATIONS NOTED AT 38. RT PRESENT. NO RESPIRATORY DISTRESS. O2 SAT IS 96%. ATIVAN 2 MG PRN IVP GIVEN ORDERED. WILL MONITOR.
[2020-11-25] MEDS: FLUCONAZOLE 200 mg/ NS 100 ML IV SCH (10:31)
[2020-11-25 11:37] VITALS: BP_SYST 137
--- NOTE | 2020-11-25 13:21 | NUR ---
Nutrition F/U Admitting Diagnosis: Right Hip Fracture Medical History Comment: Pt w/: S/P Mechanical fall, Heavy use of ETOH recently elevated blood alcohol of 165, COPD, Hypothyroidism, Mild Leukocytosis, Anemia, Acute on chronic hypoxic respiratory failure per MD notes. PMH: COPD, Hypothyroidism. 11/11: MD notes: Sepsis 11/17: MD notes: ARF 2/2 VMN 11/18: S/P Trach and PEG SARS-CoV-2 Ag Rapid 11/01 Negative Subjective information: EN infusing as ordered. Per EMR review, pt is S/P trach placement 11/24 and was transferred out of ICU yesterday. Nephrology notes pt w/ stable renal function. Plan is to discharge pt to subacute facility. Abdomen is soft and nondistended w/ active bowel sounds, last BM 11/25 x1. Pt is in bilateral wrist restraints. EN rate: 40ml (11/24); GRV: 0ml (x2 days). Shay scale: 11. Pt was seen by exhibition specialist on 11/14 and noted that pt w/ multiple skin tears. Per RN notes, 1+ pitting edema to BLE and 1+ non-pitting edema to BUE. Current EN regimen remains adequate and appropriate. Pt may benefit from adding water flush per physician. Current Diet Order/Nutrition Support: Glucerna 1.2 at 50ml/hr (goal rate), FWF 0 via GT x 5 days Pertinent Medications: Synthroid, Nephrovite, Insulin, Heparin, reglan, D5%/NaCl IV at 50ml/hr (204 kcal/day) Pertinent Labs: 11/24: BG 80WNL, POC BG 102H, BUN 32H, Cre 1.16WNL. Height: 5 feet 9.00 inches Weight: (11/14) (11/01/20) 127 pounds/ 57.115327 kilograms. (11/10) 116#/ 52.8kg; 118#/53.7kg (11/24) BMI: (11/01/20) 18.75 kg/m2. BMI (11/10): 17.2 kg/m2. (Pt is underweight); 17.5 kg/m2 (11/24) NEW Estimated Energy Expenditure (kcals/day) 9333-4409 kcal/day (25-30 kcal/kg CBW for gradual wt gain promotion) Estimated Protein Required (g/day) 73-88gm/day (1-1.2 gm/kg IBW for wt gain promotion, wound healing) Estimated Fluid Required (l/day) Per MD (ARF) Problem/Etiology/Signs/Symptoms Inadequate oral intake r/t respiratory distress AEB NPO status and pt is on venti mask. 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 (*modified) Altered nutrition related labs r/t renal dysfunction AEB BUN, Cre labs. (*improving) Altered nutrition related labs r/t medication interaction AEB elevated BG and steroid therapy. (*improving, trending down) Expected Outcomes/Goals Monitor EN tolerance and intake w/ goal of pt meeting more than 75% of estimated nutritional needs, labs trending WNL, normal GI function, skin integrity/wt maintenance. Dietitian Recommendations *Recommend: continue Glucerna 1.2 at 50ml/hr (new goal), FWF per physician via GT Provides: 1440 kcal, 72gm protein and 966ml fluids daily. Meets: 89% of upper end of estimated calorie needs and 82% of upper end of estimated protein needs. Follow Up High Risk: F/U in 2-3days
--- NOTE | 2020-11-25 13:28 | NUR ---
Dietitian Recommendations *Recommend: continue Glucerna 1.2 at 50ml/hr (new goal), FWF per physician via GT Provides: 1440 kcal, 72gm protein and 966ml fluids daily. Meets: 89% of upper end of estimated calorie needs and 82% of upper end of estimated protein needs. Please see Nutrition F/U note for details. [facility], RD
[2020-11-25 13:33] VITALS: BP_SYST 137
--- NOTE | 2020-11-25 15:40 | NUR ---
CASE MANAGEMENT ATTEMPTED TO CALL CASE MANAGEMENT FOR DISCHARGE. UNABLE TO REACH ANYONE. CALLED ON 4 SEPARATE OCCASIONS, LEFT . WILL MONITOR. Addendum: 11/25/20 at 2536 by Sonali Almanza RN Spoke to Natacha disability case manager. Informed me that bed will most likely be available tomorrow. Said to call her at [phone] or Sandy at to speak to disability case manager.
[2020-11-25 15:42] VITALS: BP_SYST 141
--- NOTE | 2020-11-25 15:54 | NUR ---
CALLED HCP HAT BRAIDER ROSSANA @ [phone] GOT SAYING SHE WAS ON VACATION TILL November AND LEFT NUMBER [phone] TO GET ASSISTANT WOMEN'S BASKETBALL COACH HAT BRAIDER BUT WENT TO [facility] . I THEN TRIED TO CALL [phone] UNABLE TO GET A HOLD OF ANYONE , I THEN CALLED THE AFTER HOURS NUMBER [phone] WAS A NUMBER NO LONGER IN SERVICE
--- NOTE | 2020-11-25 18:38 | NUR ---
CLOSING NOTE RECEIVED REPORT FROM NIGHT NURSE. PATIENT IS ON VENTILTOR, TOLERATING WELL WITH SETTINGS AT AC 18, TV 450, FIO2 35, PEEP 5.0. TOLERATING WELL. PICC LINE IN RIGHT UPPER ARM, INFUSING FLUIDS ORDERED. GARCIA CATHETER ATTACHED DRAINING BY GRAVITY. G TUBE FEEDINGS AT 50ML/ HR. TOLERATING WELL. BILATERAL WRIST RESTRAINTS IN PLACE. BED LOCKED AND IN LOWEST POSITION. CALL LIGHT WITHIN REACH. BED ALARM ON. WILL ENDORSE TO NIGHT NURSE.
[2020-11-25 20:00] VITALS: BP_SYST 146
--- NOTE | 2020-11-25 20:10 | NUR ---
Opening notes Pt opens eyes, non verbal. Pt on mechanical ventilation. Oral/suction care provided noted small thick beige secretion. Jovanny wrists restraints on. IVF infusing at ordered rate BELIA PICC line, dressing C/D/I. GT feeding Glucerna 1.2 running at 50cc/hr, no residual noted. Carl catheter draining to gravity with errol urine. HOB maintained elevated. Pt on low air loss mattress. To monitor.
[2020-11-25] MEDS ORDERED: PANTOPRAZOLE GRANULES PACKET 40 MG GT SCH (21:00)
[2020-11-25] MEDS: LANSOPRAZOLE 30 MG CAPSULE.DR GT SCH (21:35)
[2020-11-26] VITALS (7 sets, daily range): BP systolic 114–162
--- NOTE | 2020-11-26 00:10 | NUR ---
Rounds/Pericare Pt incontinent of loose brown BM. Pericare/skin care provided. Wound photos taken per protocol. Pt repositioned w/ pillow support. HOB maintained elevated.
[2020-11-26] MEDS: D5NS 1,000 ML IV SCH (03:16)
[2020-11-26] MEDS: IPRATROPIUM/ALBUTEROL SULFATE 3 ML AMPUL.NEB (DUONEB) INH SCH ×4 (03:56→15:39)
[2020-11-26] MEDS: METOCLOPRAMIDE HCL 10 MG/2 ML VIAL IVP SCH ×2 (06:02→14:05)
[2020-11-26] MEDS: LEVOTHYROXINE SODIUM 0.075 MG TABLET PO SCH (06:03)
[2020-11-26] MEDS: BUDESONIDE 0.5 MG/2 ML AMPUL.NEB INH SCH (07:35)
--- NOTE | 2020-11-26 07:48 | NUR ---
PATIENT VOMITED PATIENT VOMITED AFTER SUCTIONING. ELEVATED HEAD OF BED. PAUSED G TUBE FEEDINGS. NO RESPIRATORY DISTRESS NOTED. WILL MONITOR.
[2020-11-26] MEDS: NEPHROVITE, (FOLIC ACID/VITAMIN B COMP W-C 1 TAB) NG SCH (08:25)
[2020-11-26] MEDS: METOPROLOL TARTRATE 50 MG TABLET PO SCH ×2 (08:25→14:05)
[2020-11-26] MEDS: LANSOPRAZOLE 30 MG CAPSULE.DR GT SCH (08:25)
[2020-11-26] MEDS: LORazepam 2 MG/ML VIAL IVP PRN ×2 (08:26→14:12)
[2020-11-26] MEDS: HEPARIN SODIUM,PORCINE 5,000 UNITS/ML VIAL SUBCUT SCH (08:26)
--- NOTE | 2020-11-26 09:00 | NUR ---
DISCONTINUE RESTRAINTS REMOVED BILATERAL SOFT WRIST RESTRAINTS. PATIENT IS CALM, RESTING IN BED. NO SIGNS OF AGITATION NOTED. WILL MONITOR.
--- NOTE | 2020-11-26 09:10 | NUR ---
T[place] PATIENT RESPIRATIONS NOTED AT 32. ENTRY LEVEL MARKETING ASSISTANT PRESENT. ORDERED TO GIVE MORPHINE. MORPHINE GIVEN 4 MG IVP. PATIENT TOLERATED WELL. WILL MONITOR.
[2020-11-26] MEDS: FLUCONAZOLE 200 mg/ NS 100 ML IV SCH (09:27)
--- NOTE | 2020-11-26 11:40 | NUR ---
CPAP MODE RT CHANGED VENT SETTINGS TO CPAP MODE. PATIENT TOLERATING WELL. O2 AT 98%, RESPIRATIONS AT 22. WILL MONITOR.
--- NOTE | 2020-11-26 14:24 | NUR ---
ATIVAN PATIENT AGITATED. 1 MG ATIVAN GIVEN IVP. WILL MONITOR.
--- NOTE | 2020-11-26 14:25 | NUR ---
FAXED PAPERWORK FAXED VENT SETTINGS, MEDICATION LIST, AND CLINICAL NOTES TO [facility] PER REQUEST OF ROSE MARIE PATROLLER.
--- NOTE | 2020-11-26 16:10 | NUR ---
PATIENT HAS BED AT [facility] ROOM 231. CALLED AND GAVE REPORT TO GLEN. TRIED CALLING FAMILY, KATIE ALCARAZ ON 3 SEPARATE OCCASIONS AT 1540, 1545, 1604. UNABLE TO LEAVE VOICEMAIL. ASSISTANT IMPORT MANAGER TIME IS SCHEDULED FOR 1844. WILL MONITOR. Addendum: 11/26/20 at 1753 by Sonali Almanza RN SPOKE TO CAREGIVER OF , KATIE ALCARAZ. SAID KATIE IS IN THE HOSPITAL AND DOES NOT HAVE HER PHONE. GAVE HER HOSPITAL NUMBER FOR HER TO CALL.
--- NOTE | 2020-11-26 17:08 | NUR ---
patient dischargin to [facility] care [facility] re[facility] [address] [place] [id number] medic 1 ambulance will need to set up pick up worker auth# [id number] Alysa Donaldson called [facility]orr and provided information to nurse Addendum: 11/26/20 at 1710 by Kayleigh Hernandez RN room [facility]
--- NOTE | 2020-11-26 18:04 | NUR ---
AC MODE PATIENT PUT BACK ON AC MODE BY RT. PATIENT TOLERATING WELL. O2 97%.
--- NOTE | 2020-11-26 19:15 | NUR ---
CHANGE OF SHIFT; endorsed pt. going to be discharge to [place]. waiting for transport, all documentation done and completed.
--- NOTE | 2020-11-26 19:21 | NUR ---
CLOSING NOTE RECEIVED REPORT FROM NIGHT NURSE. PATIENT IS ON VENTILTOR, TOLERATING WELL WITH SETTINGS AT AC 18, TV 450, FIO2 35, PEEP 5.0. TOLERATING WELL. PICC LINE IN RIGHT UPPER ARM, INFUSING FLUIDS ORDERED. GARCIA CATHETER ATTACHED DRAINING BY GRAVITY. G TUBE FEEDINGS AT 50ML/ HR. TOLERATING WELL. BILATERAL WRIST RESTRAINTS IN PLACE. BED LOCKED AND IN LOWEST POSITION. CALL LIGHT WITHIN REACH. BED ALARM ON. WILL ENDORSE TO NIGHT NURSE. Addendum: 11/26/20 at 1921 by Sonali Almanza RN NO RESTRAINTS IN PLACE.
--- NOTE | 2020-11-26 19:40 | NUR ---
NOTES: report given to [facility]. pt. with trach on vent for transfer. PICC line on rt. upper arm. g tube intact and clamped. banegas cath to osd. off cardiac cath rn. day shift nurse already gave report (Nathan).
--- NOTE | 2020-11-26 19:50 | NUR ---
pt. discharged to [place] via vent with trach, RT and RN to accompany pt. belongings rechecked (valuables/money). with EMT and signed. condition guarded.
== END 2020-11-26 19:52 | DRG 4 ==
LOC: SED 18:45 → SMU 20:56 → SIC 11-03 00:05 → STU 11-24 15:55
PROVIDERS: ADMIT Internal Medicine Hospice and Palliative Medicine; ATTEND Internal Medicine Hospice and Palliative Medicine
PROC: 5A1955Z Respiratory Ventilation, Greater than 96 Consecutive Hours (ICD-10-PCS; principal; 2020-11-14)
PROC: 0B110F4 Bypass Trachea to Cutaneous with Tracheostomy Device, Open Approach (ICD-10-PCS; 2020-11-18)
PROC: 0DH63UZ Insertion of Feeding Device into Stomach, Percutaneous Approach (ICD-10-PCS; 2020-11-18)
PROC: 02HV33Z Insertion of Infusion Device into Superior Vena Cava, Percutaneous Approach (ICD-10-PCS; 2020-11-18)
DX: A41.59 Other Gram-negative sepsis (principal); S72.011A Unspecified intracapsular fracture of right femur, initial encounter for closed fracture; J96.21 Acute and chronic respiratory failure with hypoxia; N17.0 Acute kidney failure with tubular necrosis; R65.21 Severe sepsis with septic shock; G93.41 Metabolic encephalopathy; J18.9 Pneumonia, unspecified organism; E43 Unspecified severe protein-calorie malnutrition; Z99.11 Dependence on respirator [ventilator] status; B49 Unspecified mycosis; K80.10 Calculus of gallbladder with chronic cholecystitis without obstruction; E03.9 Hypothyroidism, unspecified; J43.9 Emphysema, unspecified; W06.XXXA Fall from bed, initial encounter; D64.9 Anemia, unspecified; F10.20 Alcohol dependence, uncomplicated; Y90.6 Blood alcohol level of 120-199 mg/100 ml; K70.9 Alcoholic liver disease, unspecified; I48.0 Paroxysmal atrial fibrillation; D69.6 Thrombocytopenia, unspecified; Z79.1 Long term (current) use of non-steroidal anti-inflammatories (NSAID); E83.52 Hypercalcemia; M81.0 Age-related osteoporosis without current pathological fracture; R13.10 Dysphagia, unspecified; I12.9 Hypertensive chronic kidney disease with stage 1 through stage 4 chronic kidney disease, or unspecified chronic kidney disease; N18.9 Chronic kidney disease, unspecified; Z20.822 Contact with and (suspected) exposure to COVID-19; Z79.899 Other long term (current) drug therapy; Y93.89 Activity, other specified; Y92.89 Other specified places as the place of occurrence of the external cause; Y99.8 Other external cause status; Z78.1 Physical restraint status
CPT/HCPCS: 36415; 36600; 43246; 70450-TC; 71045; 71250-TC; 72170-TC; 73552; 74018; 76376; 76705; 76770; 78580-TC; 80048; 80053; 81003; 82140; 82803-TC; 82962; 83605; 83735; 84100; 84443; 84478; 85007; 85025; 85027; 85610-TC; 85651-TC; 85730-TC; 86140; 87040-TC; 87070-TC; 87081; 87086; 87205-TC; 93306; 93971; 94002; 94003; 94640; 94760; 99285; A9540; C9113; G0378; G0482; J0360; J0692; J0696; J1030; J1450; J1630; J1644; J1815; J1940; J1956; J2001; J2060; J2175; J2248; J2250; J2270; J2543; J2704; J2765; J2930; J3010; J3411; J3475; J3490; J7030; J7042; J7050; J7060; J7613; J7626; P9046